=== PATIENT | female | born 1975 | race Caucasian/White ===

== ENCOUNTER → 2019-05-01 | Outpatient (CLI) | payer OTHER ==
--- NOTE | 2019-05-01 16:37 | CT ---
EXAMINATION TYPE: CT abdomen pelvis w con DATE OF EXAM: 05/01/2019 COMPARISON: CT 11/07/2013 HISTORY: Abdominal pain. CT DLP: 2349.9 mGycm Automated exposure control for dose reduction was used. TECHNIQUE: Helical acquisition of images from the lung bases through the pelvis have been completed. CONTRAST: Performed without Oral Contrast and with IV Contrast, patient injected with 100ml mL of Isovue 300. FINDINGS: Exam somewhat limited by patient body habitus. Along the anterior abdominal wall there is a midline hernia which show some fat present within it, and mouth of the hernia measures approximately 15 mm. Some associated inflammatory changes present. LUNG BASES: No significant abnormality is appreciated. AORTA: No significant abnormality is appreciated. LIVER/GB: Low dense focus again noted within the liver is stable, patient is post cholecystectomy. Th e liver is enlarged. PANCREAS: No significant abnormality is seen. SPLEEN: No significant abnormality is seen. ADRENALS: No significant abnormality is seen. KIDNEYS: No significant abnormality is seen. REPRODUCTIVE ORGANS: No significant abnormality is seen BOWEL: No significant abnormality is seen. FREE AIR: No Free Air visible. ASCITES: None visible. PELVIC ADENOPATHY: None visualized. RETROPERITONEAL ADENOPATHY: No Retroperitoneal Adenopathy visible. URINARY BLADDER: No significant abnormality is seen. OSSEOUS STRUCTURES: No significant abnormality is seen. IMPRESSION: FINDINGS COMPATIBLE WITH PATIENT'S HISTORY.
== END | disposition home or self-care (01) ==
LOC: RADCTMAIN 15:04
PROVIDERS: ATTEND Surgery
DX: K46.0 Unspecified abdominal hernia with obstruction, without gangrene (principal)
CPT/HCPCS: 74177; Q9967

== ENCOUNTER → 2019-05-18 | Outpatient (CLI) | payer OTHER ==
[2019-05-18 09:14] LABS: Basophils # (A) 0.1 k/uL (0-0.2); Basophils % (A) 1 %; Eosinophils # (A) 0.3 k/uL (0-0.7); Eosinophils % (A) 2 %; HCT 44.9 % (34.0-46.0); HGB 14.3 gm/dL (11.4-16.0); Lymphocytes # (A) 2.9 k/uL (1.0-4.8); Lymphocytes % (A) 21 %; MCHC 31.8 g/dL (31.0-37.0); MCV 94.2 fL (80.0-100.0); Mean Platelet Volume 7.6; Monocytes # (A) 0.7 k/uL (0-1.0); Monocytes % (A) 5 %; Neutrophils # (A) 9.5 k/uL (1.3-7.7); Neutrophils % (A) 70 %; Platelet Count 324 k/uL (150-450); RBC 4.77 m/uL (3.80-5.40); RDW 14.3 % (11.5-15.5); WBC 13.6 k/uL (3.8-10.6)
== END | disposition home or self-care (01) ==
LOC: LABPAT 08:17
PROVIDERS: ATTEND Surgery
DX: Z01.812 Encounter for preprocedural laboratory examination (principal); K43.6 Other and unspecified ventral hernia with obstruction, without gangrene
CPT/HCPCS: 36415; 85025

== ENCOUNTER 2019-05-22 08:01 | Observation (INO) | payer OTHER ==
[2019-05-18 13:52] VITALS: BMI 66.5
[~2019-05-22 08:01] MED LIST: CLINDAMYCIN 900 MG in DEXTROSE 5% IN WATER 50 ML IVPB ONE; DEXAMETHASONE SOD PHOSPHATE 10 MG/ML 1 ML VIAL IV ONE; HEPARIN SODIUM,PORCINE 5,000 UNIT/ML 1 ML VIAL SQ ONE; LEVOFLOXACIN 500MG-D5W PMX 500 MG in DEXTROSE/WATER 1 100ML.BAG IVPB ONE; ONDANSETRON 4 MG/2 ML VIAL IVP ONE; ONDANSETRON 4 MG/2 ML VIAL IVP PRN
--- NOTE | 2019-05-22 08:56 | P.GSHP ---
History of Present Illness H&P Date: 05/22/19 Chief Complaint: Incisional hernia 44-year-old female known to our service. Patient was seen in the office in late March. She has a history of previous umbilical hernia repair with mesh. Postoperatively after that surgery the patient had a wound infection. Her mesh was not removed. Unfortunately she has developed increased swelling at the umbilicus. She is complaining of discomfort in that area. Patient was sent for CAT scan to evaluate for recurrent hernia or seroma formation. CAT scan does reveal a midline hernia containing fat. Size of the fascial defect approximately 15 mm. Some inflammation noted. CAT scan findings were discussed with the patient and she was subsequently scheduled for surgery. Past Medical History Past Medical History: Asthma, COPD, Fibromyalgia, Osteoarthritis (OA), Seizure Disorder, Sleep Apnea/CPAP/BIPAP Additional Past Medical History / Comment(s): last seizure 2 months ago, migraines, varicose veins, no cpap used, urinary leakage/urgency History of Any Multi-Drug Resistant Organisms: MRSA Date of last positivie culture/infection: 2012 MDRO Source:: abdomin Past Surgical History: Cholecystectomy, Hernia Repair Additional Past Surgical History / Comment(s): surgery on archie little fingers to straigten them, Past Anesthesia/Blood Transfusion Reactions: Motion Sickness Smoking Status: Current every day smoker - Past Family History Daughter(s) Family Medical History: Cancer Medications and Allergies Home Medications Medication Instructions Recorded Confirmed Type Divalproex Sodium 500 mg PO BID 01/07/15 05/18/19 History Albuterol Inhaler [Ventolin Hfa 1 puff INHALATION Q4HR PRN 05/18/19 05/18/19 History Inhaler] Beclomethasone Dipropionate [Qvar 1 puff INHALATION BID 05/18/19 05/18/19 History 40 mcg Redihaler] Ergocalciferol (Vitamin D2) 50,000 unit PO MO 05/18/19 05/18/19 History [Vitamin D2] Hydrochlorothiazide [Hydrodiuril] 25 mg PO DAILY 05/18/19 05/18/19 History Montelukast Sodium [Singulair] 10 mg PO DAILY 05/18/19 05/18/19 History Oxybutynin Chloride 5 mg PO BID 05/18/19 05/18/19 History medroxyPROGESTERone [Depo-Provera] 150 mg IM DIRECTED 05/18/19 05/18/19 History oxyCODONE HCL/ACETAMINOPHEN 1 tab PO QID PRN 05/18/19 05/18/19 History [Percocet 10-325 mg] Allergies Allergy/AdvReac Type Severity Reaction Status Date / Time Penicillins Allergy Severe Dyspnea Verified 05/22/19 08:23 bee venom protein (honey bee) Allergy Dyspnea Verified 05/22/19 08:23 Iodinated Contrast- Oral and Allergy mouth numb Verified 05/22/19 08:23 IV Dye for 1 week/loss of taste Surgical - Exam Physical exam: General: Well-developed, well-nourished HEENT: Normocephalic, sclerae nonicteric Abdomen: Nontender, nondistended, incarcerated incisional hernia Extremities: No edema Neuro: Alert and oriented Assessment and Plan (1) Incisional hernia Narrative/Plan: Clinical scenario discussed in detail with the patient. We'll proceed with operative repair with mesh at this time. Risks of bleeding, infection, recurrence, bladder and bowel injury, numbness, nerve injury were discussed with the patient. The patient understands and wishes to proceed. Current Visit: Yes Status: Acute Code(s): K43.2 - INCISIONAL HERNIA WITHOUT OBSTRUCTION OR GANGRENE SNOMED Code(s): 516908590
[2019-05-22] MEDS ORDERED: LIDOCAINE 1% 20 ML VIAL (10MG/ML) FOR IV START INTRADERMA ONE (09:10)
[2019-05-22] MEDS: LACTATED RINGERS 1,000 ML IV SCH ×2 (09:10→17:18)
[2019-05-22] MEDS ORDERED: ROCURONIUM BROMIDE 10 MG/ML 10 ML VIAL IV ONE (09:41)
[2019-05-22] MEDS ORDERED: MIDAZOLAM 2 MG/2 ML VIAL ONE (09:41)
[2019-05-22] MEDS ORDERED: fentaNYL (PF) 50 MCG/ML 2 ML AMP ONE (09:41)
[2019-05-22] MEDS ORDERED: HYDROmorphone (PF) 1 MG/ML ONE (09:41)
[2019-05-22] MEDS ORDERED: NEOSTIGMINE 1 MG/ML 10 ML VIAL ONE (09:41)
[2019-05-22] MEDS ORDERED: GLYCOPYRROLATE 0.2 MG/ML 2 ML VIAL ONE (09:41)
[2019-05-22] MEDS ORDERED: ePHEDrine SULFATE/0.9% NACL/PF 50 MG/5 ML SYRINGE IV ONE (09:41)
[2019-05-22] MEDS ORDERED: PROPOFOL 10 MG/ML 20 ML VIAL IV ONE (09:41)
[2019-05-22] MEDS ORDERED: SUCCINYLCHOLINE CHLORIDE VIAL 200 MG/10 ML VIAL IV ONE (09:41)
[2019-05-22] MEDS ORDERED: LIDOCAINE 1% INJ 10MG/ML (20 ML MDV) ONE (09:41)
[2019-05-22] MEDS ORDERED: LACTATED RINGERS 1,000 ML IV ONE (10:49)
[2019-05-22] MEDS ORDERED: BUPIVACAINE (PF) 0.25% 30 ML VIAL SQ ONE (11:20)
[2019-05-22] MEDS ORDERED: ALBUTEROL NEBULIZED 2.5 MG/3 ML INHALATION ONE (11:39)
[2019-05-22] MEDS: HYDROmorphone 0.5 MG/0.5 ML SYRINGE IVP PRN ×2 (11:58→12:08)
[2019-05-22] MEDS ORDERED: NALOXONE 0.4 MG/ML 1 ML VIAL IV PRN (12:01)
--- NOTE | 2019-05-22 12:06 | P.OP ---
Date of Procedure: 05/22/19 Procedure(s) Performed: PREOPERATIVE DIAGNOSIS: Incarcerated incisional hernia POSTOPERATIVE DIAGNOSIS: Same PROCEDURE: Incarcerated incisional hernia repair with mesh SURGEON: Mc EBL: Minimal ANESTHESIA: Gen. COMPLICATIONS: None OPERATIVE PROCEDURE: Patient placed on the operating table in the supine po sition. Abdomen was prepped and draped in usual sterile fashion. And incision was made along the left side of the umbilicus. Dissection through the subcutaneous tissues took place using electrocautery. A large hernia was identified. The hernia sac was carefully dissected down to the level of the fascia where it was excised. The patient's hernia defect at the level of the fascia measured 3 cm x 4 cm. This appeared to be just at the superior aspect of her previous hernia repair site. The hernia sac contained a large amount of incarcerated omentum that had a slightly ischemic appearance. The omentum was excised with the use of the LigaSure device. The hernia sac was excised as well. The 8 cm ventral ex mesh was placed beneath the fascia. This was sutured to the fascia using interrupted transfascial 0 Ethibond sutures. The defect was then closed horizontally using a vest over pants interrupted 0 Ethibond suture technique. The folding edge was tacked down using interrupted 0 Ethibond sutures as well. The subcutaneous tissues were closed using 2-0 and 3-0 Vicryl sutures. The skin was closed using a running 4-0 Monocryl stitch. Skin glue and sterile dressings were applied. DISPOSITION: Stable to recovery room
[2019-05-22] MEDS ORDERED: ONDANSETRON 4 MG/2 ML VIAL IVP PRN (13:01)
[2019-05-22] MEDS ORDERED: ALBUTEROL NEBULIZED 2.5 MG/3 ML INHALATION PRN (13:18)
[2019-05-22] MEDS: HEPARIN SODIUM,PORCINE 5,000 UNIT/ML 1 ML VIAL SQ SCH ×2 (13:30→23:51)
[2019-05-22] MEDS: D5-0.45% NACL WITH KCL 20MEQ/L 1,000 ML IV SCH ×2 (13:30→21:19)
[2019-05-22] MEDS: HYDROcodone/APAP 5-325MG 1 EACH TAB PO PRN ×2 (15:34→20:41)
[2019-05-22] MEDS: FLUTICASONE 44 MCG INHALER INHALATION SCH (19:39)
[2019-05-22] MEDS: DIVALPROEX 500 MG TABLET.DR PO SCH (21:18)
[2019-05-22] MEDS: DOCUSATE 100 MG CAP PO SCH (21:18)
[2019-05-22] MEDS: OXYBUTYNIN CHLORIDE 5 MG TAB PO SCH (21:18)
--- NOTE | 2019-05-22 22:32 | P.CONS ---
History of Present Illness - Reason for Consult Consult date: 05/22/19 Medical management - Chief Complaint Incarcerated incisional hernia repair - History of Present Illness Patient is a 44-year-old female with a known history of asthma/COPD, or myalgia, seizure disorder, bipolar disorder was admitted to the hospital to incarcerated umbilical hernia repair. Patient does have a previous history of umbilical hernia repaired with mesh. Recently patient has developed increased swelling at the time because and causing significant discomfort area did patient had CT abdomen showed midline hernia containing fat and inflammation. Subsequently patient was scheduled for hernia repair. Patient currently denied any complaints of chest pain or shortness of breath. N o headache or dizziness. No nausea vomiting. Tolerating liquids. Postoperatively patient blood pressure in the lower side and is currently improved. Review of Systems Constitutional: Patient denies any fever or chills . No generalized weakness or weight loss. Abdomen: Patient denied nausea vomiting and diarrhea and abdominal pain. Cardiovascular: Patient denies any chest pain or short of breath no palpitations. Respiratory: patient denied any cough is from production. No shortness of breath Neurologic: Patient denied any numbness or tingling headache. Musculoskeletal: Patient denies any complaints of joint swelling or deformity. Skin: Negative Psychiatric: Negative Endocrine: No heat or cold intolerance. No recent weight gain. Genitourinary: No dysuria or hematuria. All other 14 point ROS negative except the above Past Medical History Past Medical History: Asthma, COPD, Fibromyalgia, Osteoarthritis (OA), Seizure Disorder, Sleep Apnea/CPAP/BIPAP Additional Past Medical History / Comment(s): last seizure 2 months ago, migraines, varicose veins, no cpap used, urinary leakage/urgency History of Any Multi-Drug Resistant Organisms: MRSA Year Discovered:: 2012 MDRO Source:: abdomin Past Surgical History: Cholecystectomy, Hernia Repair Additional Past Surgical History / Comment(s): surgery on archie little fingers to straigten them, Past Anesthesia/Blood Transfusion Reactions: Motion Sickness Past Psychological History: Anxiety, Bipolar, Depression, PTSD Smoking Status: Current every day smoker Past Alcohol Use History: Occasional Additional Past Alcohol Use History / Comment(s): smokes 1/2 PPD, has smoked since age 18 Past Drug Use History: Marijuana - Past Family History Daughter(s) Family Medical History: Cancer Medications and Allergies Home Medications Medication Instructions Recorded Confirmed Type Divalproex Sodium 500 mg PO BID 01/07/15 05/18/19 History Albuterol Inhaler [Ventolin Hfa 1 puff INHALATION Q4HR PRN 05/18/19 05/18/19 History Inhaler] Beclomethasone Dipropionate [Qvar 1 puff INHALATION BID 05/18/19 05/18/19 History 40 mcg Redihaler] Ergocalciferol (Vitamin D2) 50,000 unit PO MO 05/18/19 05/18/19 History [Vitamin D2] Hydrochlorothiazide [Hydrodiuril] 25 mg PO DAILY 05/18/19 05/18/19 History Montelukast Sodium [Singulair] 10 mg PO DAILY 05/18/19 05/18/19 History Oxybutynin Chloride 5 mg PO BID 05/18/19 05/18/19 History medroxyPROGESTERone [Depo-Provera] 150 mg IM DIRECTED 05/18/19 05/18/19 History oxyCODONE HCL/ACETAMINOPHEN 1 tab PO QID PRN 05/18/19 05/18/19 History [Percocet 10-325 mg] oxyCODONE HCL/ACETAMINOPHEN 1 tab PO Q4HR PRN 3 Days #18 tab 05/22/19 Rx [Percocet 10-325 mg] oxyCODONE HCL/ACETAMINOPHEN 1 tab PO Q6HR PRN 3 Days #12 tab 05/22/19 Rx [Percocet 10-325 mg] Allergies Allergy/AdvReac Type Severity Reaction Status Date / Time Penicillins Allergy Severe Dyspnea Verified 05/22/19 08:23 bee venom protein (honey bee) Allergy Dyspnea Verified 05/22/19 08:23 Iodinated Contrast- Oral and Allergy mouth numb Verified 05/22/19 08:23 IV Dye for 1 week/loss of taste Physical Exam Vitals: Vital Signs Temp Pulse Pulse Resp BP BP Pulse Ox 05/22/19 19:50 98.6 F 99 17 115/70 95 05/22/19 15:00 98.5 F 104 H 16 143/69 92 L 05/22/19 12:22 96 20 115/56 92 L 05/22/19 12:07 96 20 120/61 94 L 05/22/19 11:52 96 20 130/67 99 05/22/19 11:37 97 F L 100 28 H 141/64 93 L 05/22/19 09:10 96.5 F L 86 16 151/94 97 Intake and Output 05/22/19 05/22/19 05/22/19 06:59 14:59 22:59 Intake Total 1156 Output Total 20 Balance 1136 Intake: IV 1156 Output: Estimated Blood Loss 20 Other: # Voids 1 Weight 169.7 kg PHYSICAL EXAMINATION: Patient is lying in the bed comfortably, no acute distress, awake alert and oriented. Morbidly obese. HEENT: Normocephalic. Neck is supple. Pupils reactive. Nostrils clear. Oral cavity is moist. Ears reveal no drainage. Neck reveals no JVD, carotid bruits, or thyromegaly. CHEST EXAMINATION: Trachea is central. Symmetrical expansion. Lung fernandez clear to auscultation and percussion. CARDIAC: Normal S1, S2 with no gallops. No murmurs ABDOMEN: Soft. Surgical site is packed at this time. Bowel sounds present. No organomegaly. No abdominal bruits. Extremities: reveal no edema. No clubbing or cyanosis Neurologically awake, alert, oriented x3 with well-coordinated movements. No fo cathy deficits noted Skin: No rash or skin lesions. Psychiatric: Coperative. Nonsuicidal Musculoskeletal: No joint swelling or deformity. Normal range of motion. Results CBC & Chem 7: 05/22/19 09:09 Assessment and Plan Assessment: Status post umbilical hernia repair with mesh. POD #0 Previous history of other medical hernia repair. Asthma/COPD stable Fibromyalgia and are sure there is an extensive is a Obstructive sleep apnea. Currently not using CPAP machine Seizure disorder History of migraine headaches Currently everyday smoker Morbid obesity with BMI 68.4 DVT prophylaxis Plan: Patient will be continued on IV hydration. Started on liquid diet. Pain management, bowel regimen and DVT prophylaxis. Encourage incentive spirometry. Monitor H&H. Follow-up CBC and BMP. Further recommendations based on the clinical course. Time with Patient: Greater than 30
[2019-05-22] MEDS: HYDROmorphone 1 MG/ML 1 ML SYRINGE IVP PRN (23:51)
[2019-05-23] MEDS: HYDROcodone/APAP 5-325MG 1 EACH TAB PO PRN ×3 (04:47→21:44)
[2019-05-23] MEDS: D5-0.45% NACL WITH KCL 20MEQ/L 1,000 ML IV SCH ×2 (04:51→19:40)
[2019-05-23] MEDS: HYDROmorphone 1 MG/ML 1 ML SYRINGE IVP PRN ×3 (08:12→23:20)
[2019-05-23] MEDS: PANTOPRAZOLE 40 MG/10 ML VIAL IV SCH (08:12)
[2019-05-23] MEDS: HEPARIN SODIUM,PORCINE 5,000 UNIT/ML 1 ML VIAL SQ SCH ×3 (08:12→23:14)
[2019-05-23] MEDS: MONTELUKAST 10 MG TAB PO SCH (08:13)
[2019-05-23] MEDS: HYDROCHLOROTHIAZIDE 25 MG TAB PO SCH (08:13)
[2019-05-23] MEDS: DOCUSATE 100 MG CAP PO SCH ×2 (08:13→21:44)
[2019-05-23] MEDS: DIVALPROEX 500 MG TABLET.DR PO SCH ×2 (08:13→21:44)
[2019-05-23] MEDS: OXYBUTYNIN CHLORIDE 5 MG TAB PO SCH ×2 (08:14→21:44)
[2019-05-23 09:02] LABS: Basophils % (A) 0 %; Eosinophils # (A) 0.1 k/uL (0-0.7); Eosinophils % (A) 1 %; Lymphocytes # (A) 2.3 k/uL (1.0-4.8); Lymphocytes % (A) 15 %; MCH 31.5 pg (25.0-35.0); MCHC 34.1 g/dL (31.0-37.0); MCV 92.2 fL (80.0-100.0); Mean Platelet Volume 8.9; Monocytes # (A) 0.8 k/uL (0-1.0); Monocytes % (A) 5 %; Neutrophils # (A) 12.1 k/uL (1.3-7.7); Neutrophils % (A) 78 %; Platelet Count 289 k/uL (150-450); RBC 4.45 m/uL (3.80-5.40); RDW 14.1 % (11.5-15.5); WBC 15.4 k/uL (3.8-10.6)
[2019-05-23] MEDS: FLUTICASONE 44 MCG INHALER INHALATION SCH ×2 (09:13→20:48)
[2019-05-23 09:17] LABS: African American GFR (CKD) >90 (>60 ml/min/1.73 sqM); Anion Gap 13 mmol/L; Blood Urea Nitrogen 17 mg/dL (7-17); Calcium 9.3 mg/dL (8.4-10.2); Carbon Dioxide 21 mmol/L (22-30); Chloride 102 mmol/L (98-107); Glucose 163 mg/dL (74-99); Potassium 4.7 mmol/L (3.5-5.1); Sodium 136 mmol/L (137-145)
--- NOTE | 2019-05-23 10:46 | P.PN ---
Subjective Progress Note Date: 05/23/19 CHIEF COMPLAINT: Postoperative pain status post complicated ventral hernia repair HISTORY OF PRESENT ILLNESS: The patient is a 44-year-old female postop day 1 status post open ventral hernia repair. Patient reports difficulty in moving around including dizziness. Her WBC is elevated. Her pain is still moderate. ROS: No reports of nausea and vomiting. No bowel movements. No fevers or chills. No new chest pain. No productive sputum PHYSICAL EXAM: VITAL SIGNS: Reviewed CONSTITUTIONAL: Well developed and in no acute distress. EYES: Conjuctivae without sclera icterus. Extraocular movements grossly intact. HEAD, EARS, NOSE, THROAT: Moist buccal mucosa. Head is atraumatic, normocephalic. Hears conversational speech. No nasal drainage. NECK: Supple. No thyroidomegaly. RESPIRATORY: Non-labored respirations and equal bilateral excursions. CARDIOVASCULAR: Palpable 2+ radial pulses. Regular rate. Regular rhythm. ABDOMEN: Incisions clean dry and intact. Soft. No peritonitis. Appropriate incisional tenderness. Abdominal binder present. MUSCULOSKELETAL: No gross deformity of the lower extremities noted. No clubbing. No cyanosis. SKIN: Good skin turgor. Well perfused. NEUROLOGIC: Cranial nerves I through XII grossly intact. No focal or lateralizing signs. PSYCH: Appropriate affect. Alert and oriented to person, place and time. CLINCAL LABS: White blood cell count elevated over 15,000 ASSESSMENT: 1. Open ventral hernia repair, incarcerated 2. Chronic pain syndrome 3. Super morbid obesity, BMI 68.4 PLAN: 1. Recommend PT/OT assessment. 2. Discharge pending resolution of instablity, debility, and improvement of pain. Objective - Vital Signs Vital signs: Vital Signs Temp 97.7 F 05/23/19 07:00 Pulse 93 05/23/19 07:00 Resp 15 05/23/19 07:00 BP 155/77 05/23/19 07:00 Pulse Ox 95 05/23/19 07:00 Intake & Output 05/22/19 05/23/19 05/23/19 18:59 06:59 18:59 Intake Total 1156 1170 520 Output Total 20 Balance 1136 1170 520 Weight 169.7 kg Intake: IV 1156 Intake, IV Titration 1000 Amount D5-0.45% NaCl with KCl 1000 20Meq/l 1,000 ml @ 100 mls/hr IV .Q10H MICHA Rx#: [id number] Oral 170 520 Output: Estimated Blood Loss 20 Other: # Voids 1 1 - Labs CBC & Chem 7: 05/23/19 07:10 05/23/19 07:10 Labs: Abnormal Lab Results - Last 24 Hours (Table) 05/23/19 05/23/19 Range/Units 07:10 07:10 WBC 15.4 H (3.8-10.6) k/uL Neutrophils # 12.1 H (1.3-7.7) k/uL Sodium 136 L (137-145) mmol/L Carbon Dioxide 21 L (22-30) mmol/L Glucose 163 H (74-99) mg/dL Assessment and Plan (1) Incarcerated incisional hernia Current Visit: Yes Status: Acute Code(s): K43.0 - INCISIONAL HERNIA WITH OBSTRUCTION, WITHOUT GANGRENE SNOMED Code(s): 081539182 (2) Morbid obesity with BMI of 60.0-69.9, adult Current Visit: Yes Status: Acute Code(s): E66.01 - MORBID (SEVERE) OBESITY DUE TO EXCESS CALORIES; Z68.44 - BODY MASS INDEX (BMI) 60.0-69.9, ADULT SNOMED Code(s): 726736664 (3) Fibromyalgia Current Visit: Yes Status: Acute Code(s): M79.7 - FIBROMYALGIA SNOMED Code(s): 276992822 (4) Chronic pain Current Visit: Yes Status: Acute Code(s): G89.29 - OTHER CHRONIC PAIN SNOMED Code(s): 13979882
[2019-05-23] MEDS: LACTATED RINGERS 1,000 ML IV SCH (19:40)
--- NOTE | 2019-05-24 00:36 | P.PN ---
Subjective Progress Note Date: 05/23/19 Principal diagnosis: Umbilical hernia repair Patient is a 44-year-old female with a known history of asthma/COPD, or myalgia, seizure disorder, bipolar disorder was admitted to the hospital to incarcerated umbilical hernia repair. Patient does have a previous history of umbilical hernia repaired with mesh. Recently patient has developed increased swelling at the time because and causing significant discomfort area did patient had CT abdomen showed midline hernia containing fat and inflammation. Subsequently patient was scheduled for hernia repair. Patient currently denied any complaints of chest pain or shortness of breath. No headache or dizziness. No nausea vomiting. Tolerating liquids. Postoperatively patient blood pressure in the lower side and is currently improved. 05/23/2019 Patient is complaining of nausea and lightheadedness this morning. Currently improving. Hemoglobin is fairly stable. Sleep patient does have leukocytosis which is most likely from post surgical inflammation. Patient is tolerating oral diet. No compressive chest pain or shortness of breath. No headache or dizziness or lightheadedness. No fever no chills. Anticipate discharge in next 24 hours. All other 14 point review of systems negative except the above. Current medications reviewed. Objective - Vital Signs Vital signs: Vital Signs Temp 97.7 F 05/23/19 07:00 Pulse 95 05/23/19 08:00 Resp 15 05/23/19 07:00 BP 155/77 05/23/19 07:00 Pulse Ox 95 05/23/19 07:00 Intake & Output 05/22/19 05/23/19 05/23/19 18:59 06:59 18:59 Intake Total 1156 1170 520 Output Total 20 Balance 1136 1170 520 Weight 169.7 kg Intake: IV 1156 Intake, IV Titration 1000 Amount D5-0.45% NaCl with KCl 1000 20Meq/l 1,000 ml @ 100 mls/hr IV .Q10H MICHA Rx#: [id number] Oral 170 520 Output: Estimated Blood Loss 20 Other: # Voids 1 1 - Exam PHYSICAL EXAMINATION: Patient is lying in the bed comfortably, no acute distress, awake alert and oriented. Morbidly obese. HEENT: Normocephalic. Neck is supple. Pupils reactive. Nostrils clear. Oral cavity is moist. Ears reveal no drainage. Neck reveals no JVD, carotid bruits, or thyromegaly. CHEST EXAMINATION: Trachea is central. Symmetrical expansion. Lung fernandez clear to auscultation and percussion. CARDIAC: Normal S1, S2 with no gallops. No murmurs ABDOMEN: Soft. Surgical site is packed at this time. Bowel sounds present. No organomegaly. No abdominal bruits. Extremities: reveal no edema. No clubbing or cyanosis Neurologically awake, alert, oriented x3 with well-coordinated movements. No focal deficits noted Skin: No rash or skin lesions. Psychiatric: Coperative. Nonsuicidal Musculoskeletal: No joint swelling or deformity. Normal range of motion. - Labs CBC & Chem 7: 05/23/19 07:10 05/23/19 07:10 Labs: Abnormal Lab Results - Last 24 Hours (Table) 05/23/19 05/23/19 Range/Units 07:10 07:10 WBC 15.4 H (3.8-10.6) k/uL Neutrophils # 12.1 H (1.3-7.7) k/uL Sodium 136 L (137-145) mmol/L Carbon Dioxide 21 L (22-30) mmol/L Glucose 163 H (74-99) mg/dL Assessment and Plan Assessment: Status post umbilical hernia repair with mesh. POD #1 Leukocytosis WBC 15 likely due to postsurgical inflammatory reaction. CBC tomorrow. Previous history of other medical hernia repair. Asthma/COPD stable Fibromyalgia and are sure there is an extensive is a Obstructive sleep apnea. Currently not using CPAP machine Seizure disorder History of migraine headaches Currently everyday smoker Morbid obesity with BMI 68.4 DVT prophylaxis Plan: Patient will be continued on IV hydration. Started on liquid diet and advance as tolerated.. Pain management, bowel regimen and DVT prophylaxis. Encourage incentive spirometry. Monitor H&H. Follow-up CBC tomorrow. Further recommendations based on the clinical course. Time with Patient: Greater than 30
[2019-05-24] MEDS: D5-0.45% NACL WITH KCL 20MEQ/L 1,000 ML IV SCH (06:21)
[2019-05-24] MEDS: HYDROcodone/APAP 5-325MG 1 EACH TAB PO PRN ×2 (06:29→13:58)
[2019-05-24 07:28] LABS: Basophils # (A) 0.1 k/uL (0-0.2); Basophils % (A) 1 %; Eosinophils # (A) 0.2 k/uL (0-0.7); Eosinophils % (A) 1 %; HCT 39.9 % (34.0-46.0); HGB 13.2 gm/dL (11.4-16.0); Lymphocytes % (A) 30 %; MCHC 33.1 g/dL (31.0-37.0); MCV 93.5 fL (80.0-100.0); Mean Platelet Volume 7.3; Monocytes # (A) 0.7 k/uL (0-1.0); Monocytes % (A) 5 %; Neutrophils # (A) 8.1 k/uL (1.3-7.7); Neutrophils % (A) 61 %; Platelet Count 286 k/uL (150-450); RBC 4.27 m/uL (3.80-5.40); RDW 13.3 % (11.5-15.5); WBC 13.2 k/uL (3.8-10.6)
[2019-05-24] MEDS: FLUTICASONE 44 MCG INHALER INHALATION SCH (08:28)
[2019-05-24] MEDS: HYDROmorphone 1 MG/ML 1 ML SYRINGE IVP PRN (08:45)
[2019-05-24] MEDS: PANTOPRAZOLE 40 MG/10 ML VIAL IV SCH (08:45)
[2019-05-24] MEDS: OXYBUTYNIN CHLORIDE 5 MG TAB PO SCH (08:46)
[2019-05-24] MEDS: HEPARIN SODIUM,PORCINE 5,000 UNIT/ML 1 ML VIAL SQ SCH (08:46)
[2019-05-24] MEDS: DIVALPROEX 500 MG TABLET.DR PO SCH (08:46)
[2019-05-24] MEDS: HYDROCHLOROTHIAZIDE 25 MG TAB PO SCH (08:46)
[2019-05-24] MEDS: MONTELUKAST 10 MG TAB PO SCH (08:46)
[2019-05-24] MEDS: DOCUSATE 100 MG CAP PO SCH (08:46)
[2019-05-24 09:49] VITALS: BP 126/68; PULSE 90; RESP 18; TEMP 97.9
--- NOTE | 2019-05-24 11:09 | P.PN ---
Subjective Progress Note Date: 05/24/19 CHIEF COMPLAINT: Postoperative pain status post complicated ventral hernia repair HISTORY OF PRESENT ILLNESS: The patient is a 44-year-old female postop day 2 status post open ventral hernia repair. Pain is controlled. No further dizziness. 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 ROS: No reports of nausea and vomiting. No fevers or chills. No new chest pain. No productive sputum PHYSICAL EXAM: VITAL SIGNS: Reviewed CONSTITUTIONAL: Well developed and in no acute distress. EYES: Conjuctivae without sclera icterus. Extraocular movements grossly intact. HEAD, EARS, NOSE, THROAT: Moist buccal mucosa. Head is atraumatic, normocephalic . Hears conversational speech. No nasal drainage. NECK: Supple. No thyroidomegaly. RESPIRATORY: Non-labored respirations and equal bilateral excursions. CARDIOVASCULAR: Palpable 2+ radial pulses. Regular rate. Regular rhythm. ABDOMEN: Incisions clean dry and intact. Soft. No peritonitis. Abdominal binder present. MUSCULOSKELETAL: No gross deformity of the lower extremities noted. No clu bbing. No cyanosis. SKIN: Good skin turgor. Well perfused. NEUROLOGIC: Cranial nerves I through XII grossly intact. No focal or lateralizing signs. PSYCH: Appropriate affect. Alert and oriented to person, place and time. CLINCAL LABS: White blood cell count elevated over 13,000 ASSESSMENT: 1. Open ventral hernia repair, incarcerated 2. Chronic pain syndrome 3. Super morbid obesity, BMI 68.4 PLAN: 1. Discharge orders including follow up reviewed. Objective - Vital Signs Vital signs: Vital Signs Temp 97.9 F 05/24/19 08:43 Pulse 90 05/24/19 08:43 Resp 18 05/24/19 08:43 BP 126/68 05/24/19 08:43 Pulse Ox 96 05/24/19 08:43 Intake & Output 05/23/19 05/24/19 05/24/19 18:59 06:59 18:59 Intake Total 1020 250 296 Balance 1020 250 296 Intake: Oral 1020 250 296 Other: # Voids 2 1 - Labs CBC & Chem 7: 05/24/19 06:34 05/23/19 07:10 Labs: Abnormal Lab Results - Last 24 Hours (Table) 05/24/19 Range/Units 06:34 WBC 13.2 H (3.8-10.6) k/uL Neutrophils # 8.1 H (1.3-7.7) k/uL Assessment and Plan (1) Incarcerated incisional hernia Current Visit: Yes Status: Acute Code(s): K43.0 - INCISIONAL HERNIA WITH OBSTRUCTION, WITHOUT GANGRENE SNOMED Code(s): 434253375 (2) Morbid obesity with BMI of 60.0-69.9, adult Current Visit: Yes Status: Acute Code(s): E66.01 - MORBID (SEVERE) OBESITY DUE TO EXCESS CALORIES; Z68.44 - BODY MASS INDEX (BMI) 60.0-69.9, ADULT SNOMED Code(s): 833321910 (3) Fibromyalgia Current Visit: Yes Status: Acute Code(s): M79.7 - FIBROMYALGIA SNOMED Code(s): 678730475 (4) Chronic pain Current Visit: Yes Status: Acute Code(s): G89.29 - OTHER CHRONIC PAIN S NOMED Code(s): 54660469
--- NOTE | 2019-05-24 13:44 | P.DS ---
Providers Date of admission: 05/24/19 06:03 Expected date of discharge: 05/24/19 Attending physician: Aristeo Bentley Consults: 05/22/19 13:01 Consult Physician Routine Consulting Provider: Adan Power Consult Reason/Comments: Medical management Do you want consulting provider notified?: Yes Primary care physician: Srinivas Wu - Discharge Diagnosis(es) (1) Incarcerated incisional hernia Current Visit: Yes Status: Acute (2) Morbid obesity with BMI of 60.0-69.9, adult Current Visit: Yes Status: Acute (3) Fibromyalgia Current Visit: Yes Status: Acute (4) Chronic pain Current Visit: Yes Status: Acute Hospital Course: CHIEF COMPLAINT: Postoperative pain status post complicated ventral hernia repair HISTORY OF PRESENT ILLNESS: The patient is a 44-year-old female postop day 2 status post open ventral hernia repair. Pain is controlled. No further dizziness. I personally had her check with her pharmacy hours for availability to pecan picker her prescriptions. ROS: No reports of nausea and vomiting. No fevers or chills. No new chest pain. No productive sputum PHYSICAL EXAM: VITAL SIGNS: Reviewed CONSTITUTIONAL: Well developed and in no acute distress. EYES: Conjuctivae without sclera icterus. Extraocular movements grossly intact. HEAD, EARS, NOSE, THROAT: Moist buccal mucosa. Head is atraumatic, normocephalic. Hears conversational speech. No nasal drainage. NECK: Supple. No thyroidomegaly. RESPIRATORY: Non-labored respirations and equal bilateral excursions. CARDIOVASCULAR: Palpable 2+ radial pulses. Regular rate. Regular rhythm. ABDOMEN: Incisions clean dry and intact. Soft. No peritonitis. Abdominal binder present. MUSCULOSKELETAL: No gross deformity of the lower extremities noted. No clubbing. No cyanosis. SKIN: Good skin turgor. Well perfused. NEUROLOGIC: Cranial nerves I through XII grossly intact. No focal or lateralizing signs. PSYCH: Appropriate affect. Alert and oriented to person, place and time. CLINCAL LABS: White blood cell count elevated over 13,000 ASSESSMENT: 1. Open ventral hernia repair, incarcerated 2. Chronic pain syndrome 3. Super morbid obesity, BMI 68.4 PLAN: 1. Discharge orders including follow up reviewed. Procedures: Open incisional hernia repair Patient Condition at Discharge: Stable Plan - Discharge Summary Discharge Rx Participant: Yes New Discharge Prescriptions: New oxyCODONE HCL/ACETAMINOPHEN [Percocet 10-325 mg] 1 tab PO Q6HR PRN 3 Days #12 tab PRN Reason: Pain oxyCODONE HCL/ACETAMINOPHEN [Percocet 10-325 mg] 1 tab PO Q4HR PRN 3 Days #18 tab PRN Reason: pain Continue Divalproex Sodium 500 mg PO BID Oxybutynin Chloride 5 mg PO BID Beclomethasone Dipropionate [Qvar 40 mcg Redihaler] 1 puff INHALATION RT-BID Albuterol Inhaler [Ventolin Hfa Inhaler] 1 puff INHALATION RT-Q4H PRN PRN Reason: Shortness Of Breath Montelukast Sodium [Singulair] 10 mg PO DAILY Hydrochlorothiazide [Hydrodiuril] 25 mg PO DAILY Ergocalciferol (Vitamin D2) [Vitamin D2] 50,000 unit PO MO medroxyPROGESTERone [Depo-Provera] 150 mg IM Q84D Discontinued oxyCODONE HCL/ACETAMINOPHEN [Percocet 10-325 mg] 1 tab PO QID PRN PRN Reason: Pain Discharge Medication List Divalproex Sodium 500 mg PO BID 01/07/15 [History] Albuterol Inhaler [Ventolin Hfa Inhaler] 1 puff INHALATION RT-Q4H PRN 05/18/19 [History] Beclomethasone Dipropionate [Qvar 40 mcg Redihaler] 1 puff INHALATION RT-BID 05/18/19 [History] Ergocalciferol (Vitamin D2) [Vitamin D2] 50,000 unit PO MO 05/18/19 [History] Hydrochlorothiazide [Hydrodiuril] 25 mg PO DAILY 05/18/19 [History] Montelukast Sodium [Singulair] 10 mg PO DAILY 05/18/19 [History] Oxybutynin Chloride 5 mg PO BID 05/18/19 [History] medroxyPROGESTERone [Depo-Provera] 150 mg IM Q84D 05/18/19 [History] oxyCODONE HCL/ACETAMINOPHEN [Percocet 10-325 mg] 1 tab PO Q4HR PRN 3 Days #18 tab 05/22/19 [Rx] oxyCODONE HCL/ACETAMINOPHEN [Percocet 10-325 mg] 1 tab PO Q6HR PRN 3 Days #12 tab 05/22/19 [Rx] Follow up Appointment(s)/Referral(s): Aristeo Bentley MD [Medical Doctor] - 05/27/19 2:40 pm Patient Instructions/Handouts: *Surgery [facility] - (Anesthesia) Discharge Instructions Outpatient Surgery, Open Herniorrhaphy (DC)
--- NOTE | 2019-06-01 23:25 | P.PN ---
Subjective Progress Note Date: 05/24/19 Principal diagnosis: Umbilical hernia repair Patient is a 44-year-old female with a known history of asthma/COPD, or myalgia, seizure disorder, bipolar disorder was admitted to the hospital to incarcerated umbilical hernia repair. Patient does have a previous history of umbilical hernia repaired with mesh. Recently patient has developed increased swelling at the time because and causing significant discomfort area did patient had CT abdomen showed midline hernia containing fat and inflammation. Subsequently patient was scheduled for hernia repair. Patient currently denied any complaints of chest pain or shortness of breath. No headache or dizziness. No nausea vomiting. Tolerating liquids. Postoperatively patient blood pressure in the lower side and is currently improved. 05/23/2019 Patient is complaining of nausea and lightheadedness this morning. Currently improving. Hemoglobin is fairly stable. Sleep patient does have leukocytosis which is most likely from post surgical inflammation. Patient is tolerating oral diet. No compressive chest pain or shortness of breath. No headache or dizziness or lightheadedness. No fever no chills. Anticipate discharge in next 24 hours. All other 14 point review of systems negative except the above. 05/24/2019 Patient is able to tolerating liquids and is being advanced to bariatric diet. Hemoglobin is fairly stable. No complaints of chest pain or shortness breath. Abdominal soreness is much improved. No other acute overnight issues. Patient is being discharged home today. Discharge medication reconciliation was done. Current medications reviewed. Objective - Vital Signs Vital signs: Vital Signs Temp 97.9 F 05/24/19 08:43 Pulse 90 05/24/19 08:43 Resp 18 05/24/19 08:43 BP 126/68 05/24/19 08:43 Pulse Ox 96 05/24/19 08:43 Intake & Output 05/23/19 05/24/19 05/24/19 18:59 06:59 18:59 Intake Total 1020 250 296 Balance 1020 250 296 Intake: Oral 1020 250 296 Other: Voiding Method Toilet # Voids 2 1 - Exam PHYSICAL EXAMINATION: Patient is lying in the bed comfortably, no acute distress, awake alert and oriented. Morbidly obese. HEENT: Normocephalic. Neck is supple. Pupils reactive. Nostrils clear. Oral cavity is moist. Ears reveal no drainage. Neck reveals no JVD, carotid bruits, or thyromegaly. CHEST EXAMINATION: Trachea is central. Symmetrical expansion. Lung fernandez clear to auscultation and percussion. CARDIAC: Normal S1, S2 with no gallops. No murmurs ABDOMEN: Soft. Surgical site is packed at this time. Bowel sounds present. No organomegaly. No abdominal bruits. Extremities: reveal no edema. No clubbing or cyanosis Neurologically awake, alert, oriented x3 with well-coordinated movements. No focal deficits noted Skin: No rash or skin lesions. Psychiatric: Coperative. Nonsuicidal Musculoskeletal: No joint swelling or deformity. Normal range of motion. - Labs CBC & Chem 7: 05/24/19 06:34 05/23/19 07:10 Labs: Abnormal Lab Results - Last 24 Hours (Table) 05/24/19 Range/Units 06:34 WBC 13.2 H (3.8-10.6) k/uL Neutrophils # 8.1 H (1.3-7.7) k/uL Assessment and Plan Assessment: Status post umbilical hernia repair with mesh. POD #2 Leukocytosis WBC 15 likely due to postsurgical inflammatory reaction. CBC tomorrow. Previous history of other medical hernia repair. Asthma/COPD stable Fibromyalgia and are sure there is an extensive is a Obstructive sleep apnea. Currently not using CPAP machine Seizure disorder History of migraine headaches Currently everyday smoker Morbid obesity with BMI 68.4 DVT prophylaxis Plan: Patient will be continued on IV hydration. Started on liquid diet and advance as tolerated.. Pain management, bowel regimen and DVT prophylaxis. Encourage incentive spirometry. Monitor H&H. Continue the current management. Further recommendations based on the clinical course. Time with Patient: Greater than 30
== END 2019-05-24 14:13 | disposition home or self-care (01) ==
LOC: OR 08:01 → 4SSUR 11:37 → OR 05-24 05:55 → 4SSUR 05-24 06:03
PROVIDERS: ADMIT Surgery; ATTEND Surgery
DX: K43.0 Incisional hernia with obstruction, without gangrene (principal); J44.9 Chronic obstructive pulmonary disease, unspecified; G47.33 Obstructive sleep apnea (adult) (pediatric); F17.210 Nicotine dependence, cigarettes, uncomplicated; M79.7 Fibromyalgia; G89.4 Chronic pain syndrome; F43.10 Post-traumatic stress disorder, unspecified; G40.909 Epilepsy, unspecified, not intractable, without status epilepticus; F41.9 Anxiety disorder, unspecified; F31.9 Bipolar disorder, unspecified; G43.909 Migraine, unspecified, not intractable, without status migrainosus; E66.01 Morbid (severe) obesity due to excess calories; Z68.44 Body mass index [BMI] 60.0-69.9, adult; Z88.0 Allergy status to penicillin; Z90.49 Acquired absence of other specified parts of digestive tract; Z86.14 Personal history of Methicillin resistant Staphylococcus aureus infection; Z91.030 Bee allergy status; Z91.041 Radiographic dye allergy status; Z79.3 Long term (current) use of hormonal contraceptives; Z79.891 Long term (current) use of opiate analgesic; Z79.51 Long term (current) use of inhaled steroids; Z79.899 Other long term (current) drug therapy; Z80.9 Family history of malignant neoplasm, unspecified
CPT/HCPCS: 49507; 96372 ×3; 94640 ×4; 97161; 81025; 86900; 86901; 80048; 84132; 85025 ×2; 86850; 88302; G0378; C1781; J2250; J0330; J1644 ×3; J1100; J2710; J2405; J1956; J2001; J3010; J1170 ×4; J2704; C9113 ×2

== ENCOUNTER 2019-11-04 18:13 | Inpatient (IN) | payer OTHER ==
[2019-11-04] MEDS ORDERED: SODIUM CHLORIDE 0.9% 1,000 ML IV ONE (18:42)
[2019-11-04] MEDS ORDERED: MORPHINE SULFATE 4 MG/ML SYRINGE IVP STA (18:42)
[2019-11-04] MEDS ORDERED: ONDANSETRON 4 MG/2 ML VIAL IVP STA (18:42)
--- NOTE | 2019-11-04 18:50 | ED ---
General Adult HPI - General Source: patient Mode of arrival: ambulatory Limitations: no limitations <Alina Rjoo - Last Filed: 11/04/19 22:07> <Hong Gandara - Last Filed: 11/04/19 22:18> - General Chief complaint: Recheck/Abnormal Lab/Rx Stated complaint: fluid draining from surgery site Time Seen by Provider: 11/04/19 18:28 - History of Present Illness Initial comments: 44 year-old female patient presents to the emergency department today for evaluation of abdominal pain and drainage from an old periumbilical incision. Patient states that she had a umbilical hernia repair with Dr. Bentley 4-5 months ago. States that a few days ago she was reaching up to get into bed and pulled her abdomen. States that the incision opened and started draining purulent odorous drainage. She states that it has been draining for the last 2-3 days. She states she is having pain to the area and is rating it at a 7/10 on the pain scale. States leading up to this she did feel a burning, pressure type pain to the area but thought it was related to other problems. States that she has had intermittent fevers over the last couple of days. Denies any nausea or vomiting. She denies diarrhea, hematochezia, or melena. States when she has a bowel movement there seems to be more drainage to her abdomen. Patient denies any recent rash, shortness breath, chest pain, back pain, numbness, tingling, dizziness, weakness, hematuria, dysuria, urinary urgency, urinary frequency, headache, visual changes, or any other complaints. (Alina Rojo) - Related Data Home Medications Medication Instructions Recorded Confirmed Divalproex Sodium 500 mg PO BID 01/07/15 05/24/19 Albuterol Inhaler [Ventolin Hfa 1 puff INHALATION RT-Q4H PRN 05/18/19 05/24/19 Inhaler] Beclomethasone Dipropionate [Qvar 1 puff INHALATION RT-BID 05/18/19 05/24/19 40 mcg Redihaler] Ergocalciferol (Vitamin D2) 50,000 unit PO MO 05/18/19 05/24/19 [Vitamin D2] Hydrochlorothiazide [Hydrodiuril] 25 mg PO DAILY 05/18/19 05/24/19 Montelukast Sodium [Singulair] 10 mg PO DAILY 05/18/19 05/24/19 Oxybutynin Chloride 5 mg PO BID 05/18/19 05/24/19 medroxyPROGESTERone [Depo-Provera] 150 mg IM Q84D 05/18/19 05/24/19 Previous Rx's Medication Instructions Recorded oxyCODONE HCL/ACETAMINOPHEN 1 tab PO Q4HR PRN 3 Days #18 tab 05/22/19 [Percocet 10-325 mg] oxyCODONE HCL/ACETAMINOPHEN 1 tab PO Q6HR PRN 3 Days #12 tab 05/22/19 [Percocet 10-325 mg] Allergies Allergy/AdvReac Type Severity Reaction Status Date / Time Penicillins Allergy Severe Dyspnea Verified 11/04/19 18:23 bee venom protein (honey bee) Allergy Dyspnea Verified 11/04/19 18:23 Iodinated Contrast Media Allergy mouth numb Verified 11/04/19 18:23 [Iodinated Contrast- Oral for 1 and IV Dye] week/loss of taste Review of Systems ROS Other: All systems not noted in ROS Statement are negative. <Alina Rojo - Last Filed: 11/04/19 22:07> ROS Other: All systems not noted in ROS Statement are negative. <Hong Gandara - Last Filed: 11/04/19 22:18> ROS Statement: Those systems with pertinent positive or pertinent negative responses have been documented in the HPI. Past Medical History Past Medical History: Asthma, COPD, Fibromyalgia, Osteoarthritis (OA), Seizure Disorder, Sleep Apnea/CPAP/BIPAP Additional Past Medical History / Comment(s): last seizure 2 months ago, migraines, varicose veins, no cpap used, urinary leakage/urgency History of Any Multi-Drug Resistant Organisms: MRSA Date of last positivie culture/infection: 2012 MDRO Source:: abdomin Past Surgical History: Cholecystectomy, Hernia Repair Additional Past Surgical History / Comment(s): surgery on archie little fingers to straigten them, Past Anesthesia/Blood Transfusion Reactions: Motion Sickness Past Psychological History: Anxiety, Bipolar, Depression, PTSD Smoking Status: Current every day smoker Past Alcohol Use History: Occasional Past Drug Use History: Marijuana - Past Family History Daughter(s) Family Medical History: Cancer <Alina Rojo - Last Filed: 11/04/19 22:07> General Exam Limitations: no limitations General appearance: alert, in no apparent distress, other (This is a well- developed, well-nourished adult female patient in no acute distress. Vital signs upon presentation are temperature 98.2F, pulse 99, respirations 18, blood pressure 140/97, pulse ox 95% on room air.) Eye exam: Present: normal appearance, PERRL, EOMI. Absent: scleral icterus, conjunctival injection, periorbital swelling ENT exam: Present: normal exam, normal oropharynx, mucous membranes moist Respiratory exam: Present: normal lung sounds bilaterally. Absent: respiratory distress, wheezes, rales, rhonchi, stridor Cardiovascular Exam: Present: regular rate, normal rhythm, normal heart sounds. Absent: systolic murmur, diastolic murmur, rubs, gallop, clicks GI/Abdominal exam: Present: soft, tenderness (Periumbilical), normal bowel sounds, other (There is incision to the inferior aspect of the umbilicus, there is a small opening which is draining purulent fluid. There is no surrounding erythema.). Absent: distended, guarding, rebound, rigid Neurological exam: Present: alert, oriented X3, CN II-XII intact Psychiatric exam: Present: normal affect, normal mood Skin exam: Present: warm, dry, intact, normal color. 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 Patient has fever chills at home she does demonstrate purulent drainage as well as elevated white blood cell count. Patient's had some evidence of cellulitis. I did review the imaging. I did discuss the case with Dr. Sandoval who is covering Dr. Bentley. Patient will be admitted with IV antibiotics. (Hong Gandara) Medical Decision Making - Lab Data Result diagrams: 11/04/19 19:00 11/04/19 19:00 <Cesar Rojoportia Maravilla - Last Filed: 11/04/19 22:07> - Lab Data Result diagrams: 11/04/19 19:00 11/04/19 19:00 <Hong Gandara - Last Filed: 11/04/19 22:18> - Lab Data Lab Results 11/04/19 11/04/19 11/04/19 Range/Units 19:00 19:00 19:00 WBC 12.0 H (3.8-10.6) k/uL RBC 4.70 (3.80-5.40) m/uL Hgb 14.1 (11.4-16.0) gm/dL Hct 42.1 (34.0-46.0) % MCV 89.6 (80.0-100.0) fL MCH 30.0 (25.0-35.0) pg MCHC 33.4 (31.0-37.0) g/dL RDW 13.9 (11.5-15.5) % Plt Count 312 (150-450) k/uL Neutrophils % 65 % Lymphocytes % 25 % Monocytes % 4 % Eosinophils % 4 % Basophils % 0 % Neutrophils # 7.8 H (1.3-7.7) k/uL Lymphocytes # 3.0 (1.0-4.8) k/uL Monocytes # 0.5 (0-1.0) k/uL Eosinophils # 0.4 (0-0.7) k/uL Basophils # 0.1 (0-0.2) k/uL Sodium 137 (137-145) mmol/L Potassium 4.7 (3.5-5.1) mmol/L Chloride 103 (98-107) mmol/L Carbon Dioxide 25 (22-30) mmol/L Anion Gap 9 mmol/L BUN 15 (7-17) mg/dL Creatinine 0.67 (0.52-1.04) mg/dL Est GFR (CKD-EPI)AfAm >90 (>60 ml/min/1.73 sqM) Est GFR (CKD-EPI)NonAf >90 (>60 ml/min/1.73 sqM) Glucose 140 H (74-99) mg/dL Plasma Lactic Acid Leon 2.6 H* (0.7-2.0) mmol/L Calcium 9.7 (8.4-10.2) mg/dL Total Bilirubin 0.4 (0.2-1.3) mg/dL AST 16 (14-36) U/L ALT 12 (9-52) U/L Alkaline Phosphatase 63 (38-126) U/L Total Protein 7.3 (6.3-8.2) g/dL Albumin 3.9 (3.5-5.0) g/dL Urine Color Urine Appearance (Clear) Urine pH (5.0-8.0) Ur Specific [place] (1.001-1.035) Urine Protein (Negative) Urine Glucose (UA) (Negative) Urine Ketones (Negative) Urine Blood (Negative) Urine Nitrite (Negative) Urine Bilirubin (Negative) Urine Urobilinogen (<2.0) mg/dL Ur Leukocyte Esterase (Negative) Urine HCG, Qual (Not Detectd) 11/04/19 11/04/19 Range/Units Unknown Unknown WBC (3.8-10.6) k/uL RBC (3.80-5.40) m/uL Hgb (11.4-16.0) gm/dL Hct (34.0-46.0) % MCV (80.0-100.0) fL MCH (25.0-35.0) pg MCHC (31.0-37.0) g/dL RDW (11.5-15.5) % Plt Count (150-450) k/uL Neutrophils % % Lymphocytes % % Monocytes % % Eosinophils % % Basophils % % Neutrophils # (1.3-7.7) k/uL Lymphocytes # (1.0-4.8) k/uL Monocytes # (0-1.0) k/uL Eosinophils # (0-0.7) k/uL Basophils # (0-0.2) k/uL Sodium (137-145) mmol/L Potassium (3.5-5.1) mmol/L Chloride (98-107) mmol/L Carbon Dioxide (22-30) mmol/L Anion Gap mmol/L BUN (7-17) mg/dL Creatinine (0.52-1.04) mg/dL Est GFR (CKD-EPI)AfAm (>60 ml/min/1.73 sqM) Est GFR (CKD-EPI)NonAf (>60 ml/min/1.73 sqM) Glucose (74-99) mg/dL Plasma Lactic Acid Leon (0.7-2.0) mmol/L Calcium (8.4-10.2) mg/dL Total Bilirubin (0.2-1.3) mg/dL AST (14-36) U/L ALT (9-52) U/L Alkaline Phosphatase (38-126) U/L Total Protein (6.3-8.2) g/dL Albumin (3.5-5.0) g/dL Urine Color Yellow Urine Appearance Clear (Clear) Urine pH 6.5 (5.0-8.0) Ur Specific [place] 1.021 (1.001-1.035) Urine Protein Trace H (Negative) Urine Glucose (UA) Negative (Negative) Urine Ketones 1+ H (Negative) Urine Blood Negative (Negative) Urine Nitrite Negative (Negative) Urine Bilirubin Negative (Negative) Urine Urobilinogen <2.0 (<2.0) mg/dL Ur Leukocyte Esterase Negative (Negative) Urine HCG, Qual Not Detected (Not Detectd) Disposition Decision to Admit Reason: Admit from EC Decision Date: 11/04/19 Decision Time: 22:08 <Alina Rojo - Last Filed: 11/04/19 22:07> <Hong Gandara - Last Filed: 11/04/19 22:18> Clinical Impression: External incisional dehiscence, Cellulitis of periumbilical region Disposition: ADMITTED IP TO THIS [facility] Condition: Serious Referrals: Nonstaff,Physician [REFERRING] - 1-2 days
[2019-11-04] MEDS ORDERED: FAMOTIDINE 20 MG/2 ML VIAL IV STA (19:06)
[2019-11-04] MEDS ORDERED: diphenhydrAMINE 50 MG/ML 1 ML VIAL IVP STA (19:06)
[2019-11-04] MEDS ORDERED: methylPREDNISolone SOD SUCCI 125 MG/2 ML VIAL IV STA (19:06)
[2019-11-04 19:18] LABS: Basophils # (A) 0.1 k/uL (0-0.2); Basophils % (A) 0 %; Eosinophils # (A) 0.4 k/uL (0-0.7); Eosinophils % (A) 4 %; HCT 42.1 % (34.0-46.0); HGB 14.1 gm/dL (11.4-16.0); Lymphocytes % (A) 25 %; MCHC 33.4 g/dL (31.0-37.0); MCV 89.6 fL (80.0-100.0); Mean Platelet Volume 7.6; Monocytes # (A) 0.5 k/uL (0-1.0); Monocytes % (A) 4 %; Neutrophils # (A) 7.8 k/uL (1.3-7.7); Neutrophils % (A) 65 %; Platelet Count 312 k/uL (150-450); RDW 13.9 % (11.5-15.5)
[2019-11-04 19:27] LABS: ALT 12 U/L (9-52); AST 16 U/L (14-36); African American GFR (CKD) >90 (>60 ml/min/1.73 sqM); Albumin 3.9 g/dL (3.5-5.0); Alkaline Phosphatase 63 U/L (38-126); Anion Gap 9 mmol/L; Blood Urea Nitrogen 15 mg/dL (7-17); Calcium 9.7 mg/dL (8.4-10.2); Carbon Dioxide 25 mmol/L (22-30); Chloride 103 mmol/L (98-107); Glucose 140 mg/dL (74-99); Non-African American GFR(CKD) >90 (>60 ml/min/1.73 sqM); Potassium 4.7 mmol/L (3.5-5.1); Sodium 137 mmol/L (137-145); Total Bilirubin 0.4 mg/dL (0.2-1.3); Total Protein 7.3 g/dL (6.3-8.2)
--- NOTE | 2019-11-04 20:16 | CT ---
EXAMINATION TYPE: CT abdomen pelvis w con DATE OF EXAM: 11/04/2019 COMPARISON: 05/01/2019 HISTORY: Hernia repair 3 months ago. Leaking from that site. CT DLP: [id number] mGycm Automated exposure control for dose reduction was used. CONTRAST: CT scan of the abdomen pelvis is performed with IV Contrast, patient injected with 100 mL of Isovue 3 00. FINDINGS- LUNG BASES- No significant abnormality is appreciated. LIVER/GB-stable subcentimeter left hepatic density to small to characterize. Postcholecystectomy sawant ges are noted. Liver appears to be enlarged measuring 25 cm correlate for hepatocellular disease.. PANCREAS- No gross abnormality is seen. SPLEEN- No gross abnormality is seen. ADRENALS- No gross abnormality is seen. KIDNEYS/BLADDER- no hydronephrosis nephrolithiasis or renal mass. BOWEL-bowel gas pattern nonspecific and markedly limited due to the lack of contrast. LYMPH NODES- No greater than 1cm abdominal or pelvic lymph nodes areappreciated. OSSEOUS STRUCTURES- No significant abnormality is seen. OTHER- there is diffuse soft tissue edema anteriorly with soft tissue irregularity involving the epi dermis correlate for an open wound or wound dehiscence with possible hyperdensity representing hemorr damien and cellulitis. No definable abscess cavity seen. Lobulation of the uterus could be associated with uterine fibroids correlate clinically. Calcificatio n posterior to the right lobe of the liver measuring 1 cm. Retroaortic left renal vein noted. Metalli c density adjacent to the right lobe of the liver. IMPRESSION- 1. Diffuse soft tissue edema with skin thickening and irregularity along the epidermis suggestive of an open wound correlate for diffuse cellulitis. Area of hyperdensity could represent packing material or foreign body versus small hemorrhagic component correlate clinically. No definable abscess.
[2019-11-04 20:19] LABS: Appearance,Urine Clear (Clear); Bilirubin,Urine Negative (Negative); Blood,Urine Negative (Negative); Color,Urine Yellow; Glucose,Urine (UA) Negative (Negative); Ketones,Urine 1+ (Negative); Leukocyte Esterase,Urine Negative (Negative); Nitrite,Urine Negative (Negative); PH, Urine 6.5 (5.0-8.0); Protein,Urine Trace (Negative); Specific Gravity,Urine 1.021 (1.001-1.035); Urobilinogen,Urine <2.0 mg/dL (<2.0)
[2019-11-04] MEDS ORDERED: PIPERACILLIN-TAZOBACTAM 3.375 GM in SODIUM CHLORIDE 0.9% 100 ML IVPB STA (21:49)
[2019-11-04] MEDS ORDERED: NALOXONE 0.4 MG/ML 1 ML VIAL IV PRN (22:05)
[2019-11-04] MEDS ORDERED: ONDANSETRON 4 MG/2 ML VIAL IVP PRN (22:05)
[2019-11-04] MEDS ORDERED: SODIUM CHLORIDE 0.9% 1,000 ML IV SCH (22:15)
[2019-11-05] MEDS: MORPHINE SULFATE 4 MG/ML SYRINGE IV PRN ×2 (00:33→08:29)
[2019-11-05] MEDS: OXYBUTYNIN CHLORIDE 5 MG TAB PO SCH ×3 (00:34→21:48)
[2019-11-05] MEDS: DIVALPROEX ER 500 MG TAB.ER.24H PO SCH ×3 (00:34→21:48)
[2019-11-05 03:39] LABS: Basophils % (A) 0 %; Eosinophils # (A) 0.1 k/uL (0-0.7); Eosinophils % (A) 0 %; HCT 43.6 % (34.0-46.0); HGB 14.1 gm/dL (11.4-16.0); Lymphocytes # (A) 1.1 k/uL (1.0-4.8); Lymphocytes % (A) 8 %; MCH 29.7 pg (25.0-35.0); MCHC 32.3 g/dL (31.0-37.0); MCV 91.7 fL (80.0-100.0); Mean Platelet Volume 7.9; Monocytes # (A) 0.1 k/uL (0-1.0); Monocytes % (A) 1 %; Neutrophils # (A) 12.5 k/uL (1.3-7.7); Neutrophils % (A) 91 %; Platelet Count 281 k/uL (150-450); RBC 4.76 m/uL (3.80-5.40); RDW 14.1 % (11.5-15.5); WBC 13.8 k/uL (3.8-10.6)
[2019-11-05] MEDS: PIPERACILLIN-TAZOBACTAM 3.375 GM in SODIUM CHLORIDE 0.9% 100 ML IVPB SCH ×3 (06:04→22:44)
[2019-11-05] MEDS ORDERED: SODIUM CHLORIDE 0.9% 1,000 ML IV ONE (06:22)
[2019-11-05] MEDS ORDERED: ALBUTEROL NEBULIZED 2.5 MG/3 ML INHALATION SCH (08:00)
[2019-11-05] MEDS: HYDROCHLOROTHIAZIDE 25 MG TAB PO SCH (08:28)
[2019-11-05] MEDS: VENLAFAXINE HCL ER 150 MG CAP PO SCH (08:28)
[2019-11-05] MEDS: ACETAMINOPHEN TAB 325 MG TAB PO PRN (08:28)
[2019-11-05] MEDS: NICOTINE 21MG/24HR PATCH TRANSDERM SCH (08:29)
[2019-11-05] MEDS: ALBUTEROL NEBULIZED 2.5 MG/3 ML INHALATION SCH ×2 (08:46→20:11)
[2019-11-05] MEDS: FLUTICASONE 44 MCG INHALER INHALATION SCH (08:46)
[2019-11-05] MEDS: SODIUM CHLORIDE 0.9% 1,000 ML IV SCH ×2 (09:45→16:40)
[2019-11-05 10:16] LABS: African American GFR (CKD) >90 (>60 ml/min/1.73 sqM); Anion Gap 13 mmol/L; Blood Urea Nitrogen 16 mg/dL (7-17); Calcium 9.1 mg/dL (8.4-10.2); Carbon Dioxide 19 mmol/L (22-30); Chloride 103 mmol/L (98-107); Glucose 205 mg/dL (74-99); Non-African American GFR(CKD) >90 (>60 ml/min/1.73 sqM); Potassium 4.8 mmol/L (3.5-5.1); Sodium 135 mmol/L (137-145)
--- NOTE | 2019-11-05 12:01 | P.GSHP ---
<Angie Muñoz Kvng - Last Filed: 11/05/19 11:55> History of Present Illness H&P Date: 11/05/19 CHIEF COMPLAINT: drainage from surgical site HISTORY OF PRESENT ILLNESS: 44-year-old female who underwent repair of incarcerated incisional hernia with mesh on 05/22/[address] Bentley. Patient states she has been doing well postoperatively. For the past month, she reports intermittent tightness and pulling near the umbilicus. She states about a week ago, she was attempting to get into a bed that was pretty high off the ground for the patient. She states the next morning, she woke up and noticed drainage on her abdomen from coming from her previous incision. She states the drainage was purulent and malodorous. She reports having a dental procedure earlier this week and was placed on antibiotics. She states the drainage has become more clear yellow and no longer has a foul odor. PAST MEDICAL HISTORY: See list. PAST SURGICAL HISTORY: See list. SOCIAL HISTORY: No illicit drug use. REVIEW OF SYSTEMS: CONSTITUTIONAL: Denies fever or chills. HEENT: Denies blurred vision, vision changes, or eye pain. Denies hemoptysis CARDIOVASCULAR: Denies chest pain or pressure. RESPIRATORY: No shortness of breath. GASTROINTESTINAL: Refer to HPI for pertinent findings HEMATOLOGIC: Denies bleeding disorders. GENITOURINARY: Denies any blood in urine. SKIN: Denies pruitis. Denies rash. PHYSICAL EXAM: VITAL SIGNS: Reviewed. GENERAL: Well-developed in no acute distress. HEENT: No sclera icterus. Extraocular movements grossly intact. Moist buccal mucosa. Head is atraumatic, normocephalic. ABDOMEN: Soft. Nondistended. Very small opening at umbilicus with serous drainage. No surrounding erythema. Nontender. NEUROLOGIC: Alert and oriented. Cranial nerves II through XII grossly intact. LABORATORY DATA: WBC 13.8. Hemoglobin 14.1. Platelet count 281. Most recent lactic acid 4.4. IMAGING: CT abdomen and pelvis: Diffuse soft tissue edema with skin thickening and irregularity round Dermis suggestive of open wound. Correlate for diffuse cellulitis. ASSESSMENT: 1. Abdominal wall abscess 2. History of incarcerated incisional hernia with mesh on 05/22/2019 3. Previous hernia repair with postoperative infection, + MRSA PLAN: NPO Continue IV antibiotics Await wound cultures Patient to undergo I&D of abdominal wall abscess today with possible removal of mesh Nurse practitioner note has been reviewed by physician. Signing provider agrees with the documented findings, assessment, and plan of care. Past Medical History Past Medical History: Asthma, COPD, Fibromyalgia, Osteoarthritis (OA), Seizure Disorder, Sleep Apnea/CPAP/BIPAP Additional Past Medical History / Comment(s): last seizure 6 months ago, migraines, varicose veins, no cpap used, urinary leakage/urgency History of Any Multi-Drug Resistant Organisms: MRSA Date of last positivie culture/infection: 2012 MDRO Source:: abdomen Past Surgical History: Cholecystectomy, Hernia Repair Additional Past Surgical History / Comment(s): surgery on archie little fingers to straigten them, Past Anesthesia/Blood Transfusion Reactions: Motion Sickness, Postoperative Nausea & Vomiting (PONV) Past Psychological History: Anxiety, Bipolar, Depression, PTSD Smoking Status: Current every day smoker Past Alcohol Use History: Occasional Additional Past Alcohol Use History / Comment(s): smokes 1/2 PPD, has smoked since age 18 Past Drug Use History: Marijuana - Past Family History Daughter(s) Family Medical History: Cancer Additional Family Medical History / Comment(s): 4 years ago from non-hogkins lymphoma Mother Family Medical History: Cancer Additional Family Medical History / Comment(s): liver cancer Medications and Allergies Home Medications Medication Instructions Recorded Confirmed Type Albuterol Inhaler [Ventolin Hfa 2 puff INHALATION RT-BID 05/18/19 11/04/19 History Inhaler] Beclomethasone Dipropionate [Qvar 1 puff INHALATION RT-DAILY 05/18/19 11/04/19 History 40 mcg Redihaler] Hydrochlorothiazide [Hydrodiuril] 25 mg PO DAILY 05/18/19 11/04/19 History Oxybutynin Chloride 5 mg PO BID 05/18/19 11/04/19 History Amoxicillin 500 mg PO Q8H 11/04/19 11/04/19 History Divalproex Sodium [Divalproex 500 mg PO BID 11/04/19 11/04/19 History Sodium ER] Flunisolide [Aerospan] 1 puff INHALATION RT-HS 11/04/19 11/04/19 History Nicotine 21Mg/24Hr Patch [Habitrol] 1 patch TRANSDERM DAILY 11/04/19 11/04/19 History Venlafaxine HCl ER [Effexor Xr] 150 mg PO DAILY 11/04/19 11/04/19 History oxyCODONE HCL/ACETAMINOPHEN 1 tab PO QID 11/04/19 11/04/19 History [Percocet 10-325 mg] Allergies Allergy/AdvReac Type Severity Reaction Status Date / Time Penicillins Allergy Severe Dyspnea Verified 11/05/19 13:09 bee venom protein (honey bee) Allergy Dyspnea Verified 11/05/19 13:09 Iodinated Contrast Media Allergy mouth numb Verified 11/05/19 13:09 [Iodinated Contrast- Oral for 1 and IV Dye] week/loss of taste Surgical - Exam Vital Signs Temp Pulse Resp BP Pulse Ox 98.2 F 99 18 140/97 95 11/04/19 18:23 11/04/19 18:23 11/04/19 18:23 11/04/19 18:23 11/04/19 18:23 Results - Labs 11/05/19 03:11 11/05/19 09:21 Abnormal Lab Results - Last 24 Hours (Table) 11/04/19 11/04/19 11/04/19 Range/Units 19:00 19:00 19:00 WBC 12.0 H (3.8-10.6) k/uL Neutrophils # 7.8 H (1.3-7.7) k/uL Sodium (137-145) mmol/L Carbon Dioxide (22-30) mmol/L Glucose 140 H (74-99) mg/dL Plasma Lactic Acid Leon 2.6 H* (0.7-2.0) mmol/L Urine Protein (Negative) Urine Ketones (Negative) 11/04/19 11/04/19 11/05/19 Range/Units 22:58 Unknown 03:11 WBC 13.8 H (3.8-10.6) k/uL Neutrophils # 12.5 H (1.3-7.7) k/uL Sodium (137-145) mmol/L Carbon Dioxide (22-30) mmol/L Glucose (74-99) mg/dL Plasma Lactic Acid Leon 3.4 H* (0.7-2.0) mmol/L Urine Protein Trace H (Negative) Urine Ketones 1+ H (Negative) 11/05/19 11/05/19 11/05/19 Range/Units 03:11 07:51 09:21 WBC (3.8-10.6) k/uL Neutrophils # (1.3-7.7) k/uL Sodium 135 L (137-145) mmol/L Carbon Dioxide 19 L (22-30) mmol/L Glucose 205 H (74-99) mg/dL Plasma Lactic Acid Leon 4.9 H* 4.4 H* (0.7-2.0) mmol/L Urine Protein (Negative) Urine Ketones (Negative) Microbiology - Last 24 Hours (Table) 11/04/19 19:15 Gram Stain - Preliminary Abdomen Wound Culture - Preliminary Diabetes panel 11/04/19 11/05/19 Range/Units 19:00 09:21 Sodium 137 135 L (137-145) mmol/L Potassium 4.7 4.8 (3.5-5.1) mmol/L Chloride 103 103 (98-107) mmol/L Carbon Dioxide 25 19 L (22-30) mmol/L BUN 15 16 (7-17) mg/dL Creatinine 0.67 0.52 (0.52-1.04) mg/dL Glucose 140 H 205 H (74-99) mg/dL Calcium 9.7 9.1 (8.4-10.2) mg/dL AST 16 (14-36) U/L ALT 12 (9-52) U/L Alkaline Phosphatase 63 (38-126) U/L Total Protein 7.3 (6.3-8.2) g/dL Albumin 3.9 (3.5-5.0) g/dL Calcium panel 11/04/19 11/05/19 Range/Units 19:00 09:21 Calcium 9.7 9.1 (8.4-10.2) mg/dL Albumin 3.9 (3.5-5.0) g/dL Pituitary panel 11/04/19 11/05/19 Range/Units 19:00 09:21 Sodium 137 135 L (137-145) mmol/L Potassium 4.7 4.8 (3.5-5.1) mmol/L Chloride 103 103 (98-107) mmol/L Carbon Dioxide 25 19 L (22-30) mmol/L BUN 15 16 (7-17) mg/dL Creatinine 0.67 0.52 (0.52-1.04) mg/dL Glucose 140 H 205 H (74-99) mg/dL Calcium 9.7 9.1 (8.4-10.2) mg/dL Adrenal panel 11/04/19 11/05/19 Range/Units 19:00 09:21 Sodium 137 135 L (137-145) mmol/L Potassium 4.7 4.8 (3.5-5.1) mmol/L Chloride 103 103 (98-107) mmol/L Carbon Dioxide 25 19 L (22-30) mmol/L BUN 15 16 (7-17) mg/dL Creatinine 0.67 0.52 (0.52-1.04) mg/dL Glucose 140 H 205 H (74-99) mg/dL Calcium 9.7 9.1 (8.4-10.2) mg/dL Total Bilirubin 0.4 (0.2-1.3) mg/dL AST 16 (14-36) U/L ALT 12 (9-52) U/L Alkaline Phosphatase 63 (38-126) U/L Total Protein 7.3 (6.3-8.2) g/dL Albumin 3.9 (3.5-5.0) g/dL <Aristeo Bentley - Last Filed: 11/05/19 13:26> History of Present Illness As above. Patient is known to our service. Patient underwent recent repair recurrent incisional hernia in April of this year. An 8 cm subfascial mesh was placed at that time. Postoperatively the patient did well up until recently. One week ago moved rather abruptly and felt pain and subsequent drainage from the lower aspect of the incision. CAT scan confirms inflammatory changes with fluid. Previously patient had an infected umbilical hernia repair with mesh. Apparently at that time mesh was not removed. She did have full healing following that. Clinical scenario discussed with the patient. We will open the patient's previous incision. Will drain whatever fluid collection is present. We'll debride if necessary. Possible mesh removal as well. Risks of bleeding, infection, recurrent hernia, recurrent infection, fistula, chronic wound formation, pain, progressive sepsis discussed. She understands and wishes to proceed. Surgical - Exam Vital Signs Temp Pulse Resp BP Pulse Ox 98.2 F 99 18 140/97 95 11/04/19 18:23 11/04/19 18:23 11/04/19 18:23 11/04/19 18:23 11/04/19 18:23 Results - Labs 11/05/19 03:11 11/05/19 09:21 Abnormal Lab Results - Last 24 Hours (Table) 11/04/19 11/04/19 11/04/19 Range/Units 19:00 19:00 19:00 WBC 12.0 H (3.8-10.6) k/uL Neutrophils # 7.8 H (1.3-7.7) k/uL Sodium (137-145) mmol/L Carbon Dioxide (22-30) mmol/L Glucose 140 H (74-99) mg/dL Plasma Lactic Acid Leon 2.6 H* (0.7-2.0) mmol/L Urine Protein (Negative) Urine Ketones (Negative) 11/04/19 11/04/19 11/05/19 Range/Units 22:58 Unknown 03:11 WBC 13.8 H (3.8-10.6) k/uL Neutrophils # 12.5 H (1.3-7.7) k/uL Sodium (137-145) mmol/L Carbon Dioxide (22-30) mmol/L Glucose (74-99) mg/dL Plasma Lactic Acid Leon 3.4 H* (0.7-2.0) mmol/L Urine Protein Trace H (Negative) Urine Ketones 1+ H (Negative) 11/05/19 11/05/19 11/05/19 Range/Units 03:11 07:51 09:21 WBC (3.8-10.6) k/uL Neutrophils # (1.3-7.7) k/uL Sodium 135 L (137-145) mmol/L Carbon Dioxide 19 L (22-30) mmol/L Glucose 205 H (74-99) mg/dL Plasma Lactic Acid Leon 4.9 H* 4.4 H* (0.7-2.0) mmol/L Urine Protein (Negative) Urine Ketones (Negative) 11/05/19 Range/Units 11:58 WBC (3.8-10.6) k/uL Neutrophils # (1.3-7.7) k/uL Sodium (137-145) mmol/L Carbon Dioxide (22-30) mmol/L Glucose (74-99) mg/dL Plasma Lactic Acid Leon 3.7 H* (0.7-2.0) mmol/L Urine Protein (Negative) Urine Ketones (Negative) Microbiology - Last 24 Hours (Table) 11/04/19 19:15 Gram Stain - Preliminary Abdomen Wound Culture - Preliminary Diabetes panel 11/04/19 11/05/19 Range/Units 19:00 09:21 Sodium 137 135 L (137-145) mmol/L Potassium 4.7 4.8 (3.5-5.1) mmol/L Chloride 103 103 (98-107) mmol/L Carbon Dioxide 25 19 L (22-30) mmol/L BUN 15 16 (7-17) mg/dL Creatinine 0.67 0.52 (0.52-1.04) mg/dL Glucose 140 H 205 H (74-99) mg/dL Calcium 9.7 9.1 (8.4-10.2) mg/dL AST 16 (14-36) U/L ALT 12 (9-52) U/L Alkaline Phosphatase 63 (38-126) U/L Total Protein 7.3 (6.3-8.2) g/dL Albumin 3.9 (3.5-5.0) g/dL Calcium panel 11/04/19 11/05/19 Range/Units 19:00 09:21 Calcium 9.7 9.1 (8.4-10.2) mg/dL Albumin 3.9 (3.5-5.0) g/dL Pituitary panel 11/04/19 11/05/19 Range/Units 19:00 09:21 Sodium 137 135 L (137-145) mmol/L Potassium 4.7 4.8 (3.5-5.1) mmol/L Chloride 103 103 (98-107) mmol/L Carbon Dioxide 25 19 L (22-30) mmol/L BUN 15 16 (7-17) mg/dL Creatinine 0.67 0.52 (0.52-1.04) mg/dL Glucose 140 H 205 H (74-99) mg/dL Calcium 9.7 9.1 (8.4-10.2) mg/dL Adrenal panel 11/04/19 11/05/19 Range/Units 19:00 09:21 Sodium 137 135 L (137-145) mmol/L Potassium 4.7 4.8 (3.5-5.1) mmol/L Chloride 103 103 (98-107) mmol/L Carbon Dioxide 25 19 L (22-30) mmol/L BUN 15 16 (7-17) mg/dL Creatinine 0.67 0.52 (0.52-1.04) mg/dL Glucose 140 H 205 H (74-99) mg/dL Calcium 9.7 9.1 (8.4-10.2) mg/dL Total Bilirubin 0.4 (0.2-1.3) mg/dL AST 16 (14-36) U/L ALT 12 (9-52) U/L Alkaline Phosphatase 63 (38-126) U/L Total Protein 7.3 (6.3-8.2) g/dL Albumin 3.9 (3.5-5.0) g/dL
[2019-11-05] MEDS ORDERED: IV FLUID CONTINUATION 1,000 ML IV ONE (13:05)
[2019-11-05] MEDS ORDERED: ONDANSETRON 4 MG/2 ML VIAL IVP ONE (13:45)
[2019-11-05] MEDS ORDERED: DEXAMETHASONE SOD PHOSPHATE 10 MG/ML 1 ML VIAL IV ONE (13:45)
[2019-11-05] MEDS ORDERED: SCOPOLAMINE 1.5MG/72HR PATCH TRANSDERM ONE (13:45)
[2019-11-05] MEDS ORDERED: HEPARIN SODIUM,PORCINE 5,000 UNIT/ML 1 ML VIAL ONE (13:55)
[2019-11-05] MEDS ORDERED: SUCCINYLCHOLINE CHLORIDE VIAL 200 MG/10 ML VIAL IV ONE (13:55)
[2019-11-05] MEDS ORDERED: ROCURONIUM BROMIDE 10 MG/ML 10 ML VIAL IV ONE (13:55)
[2019-11-05] MEDS ORDERED: LIDOCAINE 1% INJ 10MG/ML (20 ML MDV) ONE (13:55)
[2019-11-05] MEDS ORDERED: PROPOFOL 10 MG/ML 20 ML VIAL IV ONE (13:55)
[2019-11-05] MEDS ORDERED: GLYCOPYRROLATE 0.2 MG/ML 2 ML VIAL ONE (13:55)
[2019-11-05] MEDS ORDERED: MIDAZOLAM 2 MG/2 ML VIAL ONE (13:55)
[2019-11-05] MEDS ORDERED: NEOSTIGMINE 1 MG/ML 10 ML VIAL ONE (13:55)
[2019-11-05] MEDS ORDERED: fentaNYL (PF) 50 MCG/ML 2 ML AMP ONE (13:55)
[2019-11-05] MEDS ORDERED: NALOXONE 0.4 MG/ML 1 ML VIAL IV PRN (15:31)
--- NOTE | 2019-11-05 15:37 | P.OP ---
Date of Procedure: 11/05/19 Procedure(s) Performed: PREOPERATIVE DIAGNOSIS: Infected abdominal wall fluid collection POSTOPERATIVE DIAGNOSIS: Same with infected subfascial mesh PROCEDURE: Incision and drainage of abdominal wall fluid collection with removal subfascial mesh and fascial closure SURGEON: Mc EBL: 25 Emily ANESTHESIA: Gen. COMPLICATIONS: None OPERATIVE PROCEDURE: Applications placed in the supine position. Patient then placed under general anesthesia. Abdomen prepped and draped sterilely. Previous periumbilical incision incised extending to the inferior aspect of the incision where there was a small open wound. Using a hemostat I followed the track of the wound deep down into the subcutaneous tissues towards the base of the umbilicus using electrocautery. Initially it appeared the wound was superficial however as we kept inspecting the deep portion of the wound bed were able to identify a very small opening in the fascia and when this area was spread bluntly purulent fluid was identified. At the base of this purulent fluid was noted to be a piece of mesh. I then opened the fascia further in a vertical manner. Some of the previous 0 Ethibond sutures were excised. The mesh was definitely involved in the infection. It appeared the patient actually had 2 portions of ventral ex mesh. Both pieces were removed as they were adherent to one another in one piece. This required significant blunt dissection in order to remove the mesh that was adherent for a good portion of it. The bowel thankfully was not visualized to be adherent to the mesh. The specimen was passed off. The area was irrigated with saline. Again there were adhesions beneath the fascia that was exposed. I could not visualize bowel or any iatrogenic injury. No further dissection took place for fear of the possibility of causing iatrogenic injury. The fascia was then reapproximated using [id number] #1 Vicryl sutures. This adequately closed the fascia in a vertical manner. Curlex roll was then used in the wound itself. Sterile outer dressing applied. DISPOSITION: Stable to recovery room
[2019-11-05] MEDS ORDERED: VANCOMYCIN IV PER PHARMACY 1 EACH MISC MISCELLANE PRN (15:59)
[2019-11-05] MEDS: HEPARIN SODIUM,PORCINE 5,000 UNIT/ML 1 ML VIAL SQ SCH (16:40)
[2019-11-05] MEDS: HYDROmorphone 1 MG/ML 1 ML SYRINGE IVP ONE ×2 (16:41→16:46)
[2019-11-05] MEDS ORDERED: LACTATED RINGERS 1,000 ML IV ONE (16:44)
[2019-11-05] MEDS ORDERED: VANCOMYCIN 2,250 MG in SODIUM CHLORIDE 0.9% 500 ML 500 ML IVPB ONE (17:00)
[2019-11-05] MEDS ORDERED: VANCOMYCIN 2,500 MG in SODIUM CHLORIDE 0.9% 500 ML 500 ML IVPB ONE (17:00)
--- NOTE | 2019-11-05 17:28 | P.CONS ---
History of Present Illness - Reason for Consult Consult date: 11/05/19 asthma, seizures - History of Present Illness This is a 44y/o female who is new and not been sen in our practice yet. She had undergone and abdominal hernia repair in March [address] Bentley. She report strectching recently and her umbilical incision tore open and purulent D/C came from the opening. Shehas been admitted for further Tx. She has a h/o seizures ,last 6 m/o ago. She takes Depakote for this. She is asthmatic and smokes. She uses albuterol for this. Today SHe denies any chest pain, pressure, SOB at rest, Nausea or vomiting. Review of Systems All systems: negative Past Medical History Past Medical History: Asthma, COPD, Fibromyalgia, Osteoarthritis (OA), Seizure Disorder, Sleep Apnea/CPAP/BIPAP Additional Past Medical History / Comment(s): last seizure 6 months ago, migraines, varicose veins, no cpap used, urinary leakage/urgency History of Any Multi-Drug Resistant Organisms: MRSA Year Discovered:: 2012 MDRO Source:: abdomen Past Surgical History: Cholecystectomy, Hernia Repair Additional Past Surgical History / Comment(s): surgery on archie little fingers to straigten them, Past Anesthesia/Blood Transfusion Reactions: Motion Sickness, Postoperative Nausea & Vomiting (PONV) Past Psychological History: Anxiety, Bipolar, Depression, PTSD Smoking Status: Current every day smoker Past Alcohol Use History: Occasional Additional Past Alcohol Use History / Comment(s): smokes 1/2 PPD, has smoked since age 18 Past Drug Use History: Marijuana - Past Family History Daughter(s) Family Medical History: Cancer Additional Family Medical History / Comment(s): 4 years ago from non-hogkins lymphoma Mother Family Medical History: Cancer Additional Family Medical History / Comment(s): liver cancer Medications and Allergies Home Medications Medication Instructions Recorded Confirmed Type Albuterol Inhaler [Ventolin Hfa 2 puff INHALATION RT-BID 05/18/19 11/04/19 History Inhaler] Beclomethasone Dipropionate [Qvar 1 puff INHALATION RT-DAILY 05/18/19 11/04/19 History 40 mcg Redihaler] Hydrochlorothiazide [Hydrodiuril] 25 mg PO DAILY 05/18/19 11/04/19 History Oxybutynin Chloride 5 mg PO BID 05/18/19 11/04/19 History Amoxicillin 500 mg PO Q8H 11/04/19 11/04/19 History Divalproex Sodium [Divalproex 500 mg PO BID 11/04/19 11/04/19 History Sodium ER] Flunisolide [Aerospan] 1 puff INHALATION RT-HS 11/04/19 11/04/19 History Nicotine 21Mg/24Hr Patch [Habitrol] 1 patch TRANSDERM DAILY 11/04/19 11/04/19 History Venlafaxine HCl ER [Effexor Xr] 150 mg PO DAILY 11/04/19 11/04/19 History oxyCODONE HCL/ACETAMINOPHEN 1 tab PO QID 11/04/19 11/04/19 History [Percocet 10-325 mg] Allergies Allergy/AdvReac Type Severity Reaction Status Date / Time Penicillins Allergy Severe Dyspnea Verified 11/05/19 13:09 bee venom protein (honey bee) Allergy Dyspnea Verified 11/05/19 13:09 Iodinated Contrast Media Allergy mouth numb Verified 11/05/19 13:09 [Iodinated Contrast- Oral for 1 and IV Dye] week/loss of taste Physical Exam Vitals: Vital Signs Temp Pulse Pulse Resp BP BP Pulse Ox 11/05/19 17:01 96 14 111/52 93 L 11/05/19 16:45 94 16 138/70 96 11/05/19 16:30 95 16 145/72 95 11/05/19 16:18 94 16 123/74 96 11/05/19 13:57 98.9 F 103 H 14 135/47 94 L 11/05/19 13:06 97.4 F L 88 16 147/76 94 L 11/05/19 08:50 86 11/05/19 08:39 84 11/05/19 08:05 98.1 F 87 17 131/63 95 11/05/19 04:53 16 11/04/19 23:18 16 11/04/19 22:53 98.8 F 93 16 159/88 95 11/04/19 22:37 80 18 136/81 99 11/04/19 18:23 98.2 F 99 18 140/97 95 Intake and Output 11/05/19 11/05/19 11/05/19 06:59 14:59 22:59 Intake Total 350 400 Balance 350 400 Intake: IV 350 400 Other: Voiding Method Toilet Toilet # Voids 1 Weight 156.943 kg - Constitutional General appearance: morbidly obese - EENT Eyes: PERRLA - Neck Neck: no lymphadenopathy, no thyromegaly Thyroid: bilateral: normal size - Respiratory Respiratory: bilateral: diminished - Cardiovascular Rhythm: regular Heart sounds: normal: S1, S2 Abnormal Heart Sounds: no systolic murmur - Gastrointestinal General gastrointestinal: normal bowel sounds Localized gastrointestinal: tender: epigastric periumbilical (laceration with dried d/c present) - Integumentary Integumentary: no calor - Neurologic Neurologic: CNII-XII intact - Musculoskeletal Musculoskeletal: gait normal - Psychiatric Psychiatric: A&O x's 3 Results CBC & Chem 7: 11/05/19 03:11 11/05/19 09:21 Labs: Abnormal Lab Results - Last 24 Hours (Table) 11/04/19 11/04/19 11/04/19 Range/Units 19:00 19:00 19:00 WBC 12.0 H (3.8-10.6) k/uL Neutrophils # 7.8 H (1.3-7.7) k/uL Sodium (137-145) mmol/L Carbon Dioxide (22-30) mmol/L Glucose 140 H (74-99) mg/dL Plasma Lactic Acid Leon 2.6 H* (0.7-2.0) mmol/L Urine Protein (Negative) Urine Ketones (Negative) 11/04/19 11/04/19 11/05/19 Range/Units 22:58 Unknown 03:11 WBC 13.8 H (3.8-10.6) k/uL Neutrophils # 12.5 H (1.3-7.7) k/uL Sodium (137-145) mmol/L Carbon Dioxide (22-30) mmol/L Glucose (74-99) mg/dL Plasma Lactic Acid Leon 3.4 H* (0.7-2.0) mmol/L Urine Protein Trace H (Negative) Urine Ketones 1+ H (Negative) 11/05/19 11/05/19 11/05/19 Range/Units 03:11 07:51 09:21 WBC (3.8-10.6) k/uL Neutrophils # (1.3-7.7) k/uL Sodium 135 L (137-145) mmol/L Carbon Dioxide 19 L (22-30) mmol/L Glucose 205 H (74-99) mg/dL Plasma Lactic Acid Leon 4.9 H* 4.4 H* (0.7-2.0) mmol/L Urine Protein (Negative) Urine Ketones (Negative) 11/05/19 Range/Units 11:58 WBC (3.8-10.6) k/uL Neutrophils # (1.3-7.7) k/uL Sodium (137-145) mmol/L Carbon Dioxide (22-30) mmol/L Glucose (74-99) mg/dL Plasma Lactic Acid Leon 3.7 H* (0.7-2.0) mmol/L Urine Protein (Negative) Urine Ketones (Negative) Microbiology - Last 24 Hours (Table) 11/04/19 19:15 Gram Stain - Preliminary Abdomen Wound Culture - Preliminary CT scan - abdomen: report reviewed Assessment and Plan (1) Seizure disorder Current Visit: Yes Status: Acute Code(s): G40.909 - EPILEPSY, UNSP, NOT INTRACTABLE, WITHOUT STATUS EPILEPTICUS SNOMED Code(s): 848674289 (2) Tobacco abuse Current Visit: Yes Status: Acute Code(s): Z72.0 - TOBACCO USE SNOMED Code(s): 972556061 (3) Asthma Current Visit: Yes Status: Acute Code(s): J45.909 - UNSPECIFIED ASTHMA, UNCOMPLICATED SNOMED Code(s): 780610263 (4) Chronic, continuous use of opioids Current Visit: Yes Status: Acute Code(s): F11.90 - OPIOID USE, UNSPECIFIED, UNCOMPLICATED SNOMED Code(s): 037372933 (5) Essential (primary) hypertension Current Visit: Yes Status: Acute Code(s): I10 - ESSENTIAL (PRIMARY) HYPERTENSION SNOMED Code(s): 56438356 (6) Cellulitis of periumbilical region Current Visit: Yes Status: Acute Code(s): L03.319 - CELLULITIS OF TRUNK, UNSPECIFIED SNOMED Code(s): 30780010 (7) External incisional dehiscence Current Visit: Yes Status: Acute Code(s): T81.31XA - DISRUPTION OF EXTERNAL OPERATION (SURGICAL) WOUND, NEC, INIT SNOMED Code(s): 958210089198505 (8) Morbid obesity with BMI of 60.0-69.9, adult Current Visit: No Status: Acute Code(s): E66.01 - MORBID (SEVERE) OBESITY DUE TO EXCESS CALORIES; Z68.44 - BODY MASS INDEX (BMI) 60.0-69.9, ADULT SNOMED Code(s): 812394178 Plan: restart home meds - percocet as she is on IV Morphine repeat labs in am Seizure precaustions will reevaulate in 24 hrs
[2019-11-05] MEDS: HYDROcodone/APAP 5-325MG 1 EACH TAB PO PRN (21:50)
[2019-11-06] MEDS ORDERED: VANCOMYCIN 2,250 MG in SODIUM CHLORIDE 0.9% 500 ML 500 ML IVPB SCH ×2
[2019-11-06] MEDS: HEPARIN SODIUM,PORCINE 5,000 UNIT/ML 1 ML VIAL SQ SCH ×3 (00:17→18:19)
[2019-11-06] MEDS: MORPHINE SULFATE 4 MG/ML SYRINGE IV PRN ×3 (04:49→14:26)
[2019-11-06 05:59] LABS: Basophils % (A) 0 %; Eosinophils # (A) 0.2 k/uL (0-0.7); Eosinophils % (A) 1 %; HCT 40.4 % (34.0-46.0); HGB 13.1 gm/dL (11.4-16.0); Lymphocytes % (A) 12 %; MCH 29.8 pg (25.0-35.0); MCHC 32.3 g/dL (31.0-37.0); MCV 92.1 fL (80.0-100.0); Mean Platelet Volume 7.8; Monocytes # (A) 0.7 k/uL (0-1.0); Monocytes % (A) 4 %; Neutrophils # (A) 13.2 k/uL (1.3-7.7); Neutrophils % (A) 81 %; Platelet Count 284 k/uL (150-450); RBC 4.39 m/uL (3.80-5.40); RDW 14.2 % (11.5-15.5); WBC 16.3 k/uL (3.8-10.6)
[2019-11-06] MEDS: PIPERACILLIN-TAZOBACTAM 3.375 GM in SODIUM CHLORIDE 0.9% 100 ML IVPB SCH ×2 (06:02→15:22)
[2019-11-06 06:11] LABS: ALT 19 U/L (4-34); AST 16 U/L (14-36); African American GFR (CKD) >90 (>60 ml/min/1.73 sqM); Albumin 3.8 g/dL (3.5-5.0); Alkaline Phosphatase 59 U/L (38-126); Anion Gap 12 mmol/L; Blood Urea Nitrogen 18 mg/dL (7-17); Calcium 9.1 mg/dL (8.4-10.2); Carbon Dioxide 22 mmol/L (22-30); Chloride 102 mmol/L (98-107); Glucose 177 mg/dL (74-99); Non-African American GFR(CKD) >90 (>60 ml/min/1.73 sqM); Potassium 4.4 mmol/L (3.5-5.1); Sodium 136 mmol/L (137-145); Total Bilirubin 0.3 mg/dL (0.2-1.3); Total Protein 6.9 g/dL (6.3-8.2)
[2019-11-06] MEDS: FLUNISOLIDE INHALATION SCH (07:01)
[2019-11-06] MEDS: SODIUM CHLORIDE 0.9% 1,000 ML IV SCH ×2 (07:02→18:19)
[2019-11-06] MEDS: HYDROcodone/APAP 5-325MG 1 EACH TAB PO PRN ×4 (07:23→21:04)
[2019-11-06] MEDS: FLUTICASONE 44 MCG INHALER INHALATION SCH (08:54)
[2019-11-06] MEDS: ALBUTEROL NEBULIZED 2.5 MG/3 ML INHALATION SCH ×2 (08:57→19:07)
[2019-11-06] MEDS: NICOTINE 21MG/24HR PATCH TRANSDERM SCH (09:20)
[2019-11-06] MEDS: DIVALPROEX ER 500 MG TAB.ER.24H PO SCH ×2 (09:20→20:56)
[2019-11-06] MEDS: VENLAFAXINE HCL ER 150 MG CAP PO SCH (09:20)
[2019-11-06] MEDS: HYDROCHLOROTHIAZIDE 25 MG TAB PO SCH (09:20)
[2019-11-06] MEDS: OXYBUTYNIN CHLORIDE 5 MG TAB PO SCH ×2 (09:20→20:56)
[2019-11-06] MEDS: VANCOMYCIN 2,250 MG in SODIUM CHLORIDE 0.9% 500 ML 500 ML IVPB SCH ×2 (10:36→19:45)
--- NOTE | 2019-11-06 12:10 | P.PN ---
<Angie Muñoz Kvng - Last Filed: 11/06/19 12:08> Subjective Progress Note Date: 11/06/19 CHIEF COMPLAINT: drainage from surgical site HISTORY OF PRESENT ILLNESS: patient is status post incision and drainage of abdominal wall fluid collection removal subcufascial mesh and fascial closure. POD #1. patient examined at the bedside. She reports her pain is tolerable. Denies nausea or vomiting. Tolerating diet. W BC 16.3. Lactic acid 2.2. PHYSICAL EXAM: VITAL SIGNS: Reviewed. GENERAL: Well-developed in no acute distress. HEENT: No sclera icterus. Extraocular movements grossly intact. Moist buccal mucosa. Head is atraumatic, normocephalic. ABDOMEN: Soft. Nondistended. Wound with packing noted with serosanguineous drainage. NEUROLOGIC: Alert and oriented. Cranial nerves II through XII grossly intact. ASSESSMENT: 1. Abdominal wall abscess 2. History of incarcerated incisional hernia with mesh on 05/22/2019 3. Previous hernia repair with postoperative infection, + MRSA PLAN: Dr. Peterson on consult. Continue antibiotics per ID. monitor WBC. Await wound cultures continue diet as tolerated. pain control Increase activity as tolerated Nurse practitioner note has been reviewed by physician. Signing provider agrees with the documented findings, assessment, and plan of care. Objective - Vital Signs Vital signs: Vital Signs Temp 98.5 F 11/06/19 07:16 Pulse 85 11/06/19 07:16 Resp 18 11/06/19 07:16 BP 121/74 11/06/19 07:16 Pulse Ox 96 11/06/19 07:16 Intake & Output 11/05/19 11/06/19 11/06/19 18:59 06:59 18:59 Intake Total 930 3060 820 Output Total 325 Balance 930 2735 820 Intake: IV 750 Intake, IV Titration 900 Amount Sodium Chloride 0.9% 1, 400 000 ml @ 100 mls/hr IV . Q10H MICHA Rx#:[id number] Vancomycin 2,250 mg In 500 Sodium Chloride 0.9% 500 ml 500 ml @ 167 mls/hr IVPB Q8H MICHA Rx#: [id number] Oral 180 2160 820 Output: Urine 325 Other: Voiding Method Toilet Toilet # Voids 3 - Labs CBC & Chem 7: 11/06/19 05:42 11/06/19 05:42 Labs: Abnormal Lab Results - Last 24 Hours (Table) 11/05/19 11/05/19 11/05/19 Range/Units 11:58 17:22 21:14 WBC (3.8-10.6) k/uL Neutrophils # (1.3-7.7) k/uL Sodium (137-145) mmol/L BUN (7-17) mg/dL Glucose (74-99) mg/dL Plasma Lactic Acid Leon 3.7 H* 3.2 H* 4.4 H* (0.7-2.0) mmol/L 11/06/19 11/06/19 11/06/19 Range/Units 01:00 05:42 05:42 WBC 16.3 H (3.8-10.6) k/uL Neutrophils # 13.2 H (1.3-7.7) k/uL Sodium 136 L (137-145) mmol/L BUN 18 H (7-17) mg/dL Glucose 177 H (74-99) mg/dL Plasma Lactic Acid Leon 4.1 H* (0.7-2.0) mmol/L 11/06/19 11/06/19 Range/Units 05:42 10:27 WBC (3.8-10.6) k/uL Neutrophils # (1.3-7.7) k/uL Sodium (137-145) mmol/L BUN (7-17) mg/dL Glucose (74-99) mg/dL Plasma Lactic Acid Leon 3.3 H* 2.2 H* (0.7-2.0) mmol/L Microbiology - Last 24 Hours (Table) 11/05/19 09:21 Blood Culture - Preliminary Blood No Growth after 24 hours 11/05/19 15:02 Gram Stain - Preliminary Abdomen Wound Culture - Preliminary 11/05/19 15:02 Anaerobic Culture - Preliminary Abdomen 11/04/19 20:00 Blood Culture - Preliminary Blood No Growth after 24 hours 11/04/19 19:15 Gram Stain - Preliminary Abdomen Wound Culture - Preliminary <Aristeo Bentley - Last Filed: 11/06/19 13:37> Subjective as above. Patient doing well. Wound is clean. Will begin wound VAC therapy. Await cultures. Objective - Vital Signs Vital signs: Vital Signs Temp 98.5 F 11/06/19 07:16 Pulse 85 11/06/19 07:16 Resp 18 11/06/19 07:16 BP 121/74 11/06/19 07:16 Pulse Ox 96 11/06/19 07:16 Intake & Output 11/05/19 11/06/19 11/06/19 18:59 06:59 18:59 Intake Total 930 3060 1360 Output Total 325 Balance 930 2735 1360 Intake: IV 750 Intake, IV Titration 900 Amount Sodium Chloride 0.9% 1, 400 000 ml @ 100 mls/hr IV . Q10H MICHA Rx#:[id number] Vancomycin 2,250 mg In 500 Sodium Chloride 0.9% 500 ml 500 ml @ 167 mls/hr IVPB Q8H MICHA Rx#: [id number] Oral 180 2160 1360 Output: Urine 325 Other: Voiding Method Toilet Toilet # Voids 3 - Labs CBC & Chem 7: 11/06/19 05:42 11/06/19 05:42 Labs: Abnormal Lab Results - Last 24 Hours (Table) 11/05/19 11/05/19 11/06/19 Range/Units 17:22 21:14 01:00 WBC (3.8-10.6) k/uL Neutrophils # (1.3-7.7) k/uL Sodium (137-145) mmol/L BUN (7-17) mg/dL Glucose (74-99) mg/dL Plasma Lactic Acid Leon 3.2 H* 4.4 H* 4.1 H* (0.7-2.0) mmol/L 11/06/19 11/06/19 11/06/19 Range/Units 05:42 05:42 05:42 WBC 16.3 H (3.8-10.6) k/uL Neutrophils # 13.2 H (1.3-7.7) k/uL Sodium 136 L (137-145) mmol/L BUN 18 H (7-17) mg/dL Glucose 177 H (74-99) mg/dL Plasma Lactic Acid Leon 3.3 H* (0.7-2.0) mmol/L 11/06/19 Range/Units 10:27 WBC (3.8-10.6) k/uL Neutrophils # (1.3-7.7) k/uL Sodium (137-145) mmol/L BUN (7-17) mg/dL Glucose (74-99) mg/dL Plasma Lactic Acid Leon 2.2 H* (0.7-2.0) mmol/L Microbiology - Last 24 Hours (Table) 11/05/19 09:21 Blood Culture - Preliminary Blood No Growth after 24 hours 11/05/19 15:02 Gram Stain - Preliminary Abdomen Wound Culture - Preliminary 11/05/19 15:02 Anaerobic Culture - Preliminary Abdomen 11/04/19 20:00 Blood Culture - Preliminary Blood No Growth after 24 hours
--- NOTE | 2019-11-06 14:40 | P.CONS ---
History of Present Illness - Reason for Consult Consult date: 11/06/19 infected prosthetic mesh - History of Present Illness This is a 44-year-old morbidly obese female with history of incarcerated incisional hernia repair with mesh done on 05/22/[address] Bentley. For the past month patient has had intermittent tightness and pulling at the umbilicus. About one week ago she started having drainage from the wound area along with discomfort and pain and possibly some intermittent fevers. She states it was yellow in color. She has been recently on oral amoxicillin for a tooth infection. Patient came into [facility] emergency center for evaluation on November 04 and she was found to be afebrile, WBC initially 12.0 now at 16, lactic acid has been consistently elevated during her stay. Albumin 3.8, BUN 18 creatinine 0.61. Blood culture 2 are showing no growth at 24 hours. Wound cultures in progress. Yesterday, patient underwent I&D of infected abdominal wall fluid collection with infected subfascial mesh. Mesh was also removed. Patient states her abdomen is still sore. She relates that a wound VAC is planned. Discussed discharge planning the patient states that she is essentially homeless. She did tell returned case inspector that she is living with her cousin and plans to return there at the time of discharge. Patient relates to me that she has just been bouncing from place to place and is interested in having subacute rehab. Patient is currently on Zosyn and vancomycin.she states she has not had a bowel movement since procedure but is passing gas. Review of Systems Constitutional: Reports fatigue, Denies chills, Denies fever, Denies poor appetite, Denies weight loss Eyes: denies blurred vision, denies pain Ears, nose, mouth and throat: Denies headache, Denies sore throat, Denies vertigo Cardiovascular: Denies chest pain, Denies dyspnea on exertion, Denies edema, Denies lightheadedness, Denies shortness of breath, Denies syncope Respiratory: Reports sleep apnea, Denies cough, Denies cough with sputum, Denies excessive sputum, Denies hemoptysis, Denies home oxygen, Denies respiratory infections Gastrointestinal: Reports abdominal pain, Denies diarrhea, Denies nausea, Denies vomiting Genitourinary: Denies dysuria, Denies hematuria, Denies urgency, Denies urinary frequency Musculoskeletal: Denies frequent falls, Denies myalgias Integumentary: Denies pruritus, Denies rash Neurological: Denies numbness, Denies weakness Psychiatric: Denies anxiety, Denies depression Endocrine: Denies fatigue, Denies weight change Past Medical History Past Medical History: Asthma, COPD, Fibromyalgia, Osteoarthritis (OA), Seizure Disorder, Sleep Apnea/CPAP/BIPAP Additional Past Medical History / Comment(s): last seizure 6 months ago, migraines, varicose veins, no cpap used, urinary leakage/urgency History of Any Multi-Drug Resistant Organisms: MRSA Year Discovered:: 2012 MDRO Source:: abdomen Past Surgical History: Cholecystectomy, Hernia Repair Additional Past Surgical History / Comment(s): surgery on archie little fingers to straigten them, I&D of infected abdominal wall fluid collection with infected subfascial mesh and mesh removal. Past Anesthesia/Blood Transfusion Reactions: Motion Sickness, Postoperative Nausea & Vomiting (PONV) Past Psychological History: Anxiety, Bipolar, Depression, PTSD Smoking Status: Current every day smoker Past Alcohol Use History: Occasional Additional Past Alcohol Use History / Comment(s): smokes 1/2 PPD, has smoked since age 18 Past Drug Use History: Marijuana - Past Family History Daughter(s) Family Medical History: Cancer Additional Family Medical History / Comment(s): 4 years ago from non-hogkins lymphoma Mother Family Medical History: Cancer Additional Family Medical History / Comment(s): liver cancer Medications and Allergies Home Medications Medication Instructions Recorded Confirmed Type Albuterol Inhaler [Ventolin Hfa 2 puff INHALATION RT-BID 05/18/19 11/04/19 History Inhaler] Beclomethasone Dipropionate [Qvar 1 puff INHALATION RT-DAILY 05/18/19 11/04/19 History 40 mcg Redihaler] Hydrochlorothiazide [Hydrodiuril] 25 mg PO DAILY 05/18/19 11/04/19 History Oxybutynin Chloride 5 mg PO BID 05/18/19 11/04/19 History Amoxicillin 500 mg PO Q8H 11/04/19 11/04/19 History Divalproex Sodium [Divalproex 500 mg PO BID 11/04/19 11/04/19 History Sodium ER] Flunisolide [Aerospan] 1 puff INHALATION RT-HS 11/04/19 11/04/19 History Nicotine 21Mg/24Hr Patch [Habitrol] 1 patch TRANSDERM DAILY 11/04/19 11/04/19 History Venlafaxine HCl ER [Effexor Xr] 150 mg PO DAILY 11/04/19 11/04/19 History oxyCODONE HCL/ACETAMINOPHEN 1 tab PO QID 11/04/19 11/04/19 History [Percocet 10-325 mg] Allergies Allergy/AdvReac Type Severity Reaction Status Date / Time Penicillins Allergy Severe Dyspnea Verified 11/05/19 13:09 bee venom protein (honey bee) Allergy Dyspnea Verified 11/05/19 13:09 Iodinated Contrast Media Allergy mouth numb Verified 11/05/19 13:09 [Iodinated Contrast- Oral for 1 and IV Dye] week/loss of taste Physical Exam Vitals: Vital Signs Temp Pulse Pulse Resp BP BP Pulse Ox 11/06/19 13:44 98.0 F 89 15 119/70 96 11/06/19 07:16 98.5 F 85 18 121/74 96 11/06/19 01:30 98.1 F 94 16 111/70 94 L 11/05/19 20:20 90 16 11/05/19 20:14 92 L 11/05/19 20:11 92 16 11/05/19 18:14 102 H 119/70 11/05/19 17:59 101 H 125/69 11/05/19 17:44 106 H 83/54 11/05/19 17:29 98.8 F 99 16 123/61 99 11/05/19 17:01 96 14 111/52 93 L 11/05/19 16:45 94 16 138/70 96 11/05/19 16:30 95 16 145/72 95 11/05/19 16:18 94 16 123/74 96 Intake and Output 11/05/19 11/06/19 11/06/19 22:59 06:59 14:59 Intake Total 2440 1200 1360 Output Total 325 Balance 2115 1200 1360 Intake: IV 400 Intake, IV Titration 900 Amount Sodium Chloride 0.9% 1, 400 000 ml @ 100 mls/hr IV . Q10H MICHA Rx#:[id number] Vancomycin 2,250 mg In 500 Sodium Chloride 0.9% 500 ml 500 ml @ 167 mls/hr IVPB Q8H MICHA Rx#: [id number] Oral 1140 1200 1360 Output: Urine 325 Other: Voiding Method Toilet # Voids 1 3 Gen: This is a super morbid obese 44-year-old female. Patient's resting bed and appears to be comfortable. HEENT: Head is atraumatic, normocephalic. Pupils equal, round. Sclerae is anicteric. oral mucous membranes are moist. No thrush noted. Dentition is in fair order. NECK: Supple. No JVD. No lymphadenopathy. No thyromegaly. LUNGS: Clear to auscultation. No wheezes or rhonchi. No intercostal retractions. HEART: Regular rate and rhythm. No murmur. ABDOMEN: Soft. Bowel sounds are present. No masses. abdominal binder in place, wound is packed. EXTREMITIES: No pedal edema. No calf tenderness.dorsalis pedis +2 bilaterally. NEUROLOGICAL: Patient is awake, alert and oriented x3. Cranial nerves 2 through 12 are grossly intact. Results Results: Laboratory Results WBC 16.3 k/uL (3.8-10.6) H 11/06/19 05:42 RBC 4.39 m/uL (3.80-5.40) 11/06/19 05:42 Hgb 13.1 gm/dL (11.4-16.0) 11/06/19 05:42 Hct 40.4 % (34.0-46.0) 11/06/19 05:42 MCV 92.1 fL (80.0-100.0) 11/06/19 05:42 MCH 29.8 pg (25.0-35.0) 11/06/19 05:42 MCHC 32.3 g/dL (31.0-37.0) 11/06/19 05:42 RDW 14.2 % (11.5-15.5) 11/06/19 05:42 Plt Count 284 k/uL (150-450) 11/06/19 05:42 Neutrophils % 81 % 11/06/19 05:42 Lymphocytes % 12 % 11/06/19 05:42 Monocytes % 4 % 11/06/19 05:42 Eosinophils % 1 % 11/06/19 05:42 Basophils % 0 % 11/06/19 05:42 Neutrophils # 13.2 k/uL (1.3-7.7) H 11/06/19 05:42 Lymphocytes # 2.0 k/uL (1.0-4.8) 11/06/19 05:42 Monocytes # 0.7 k/uL (0-1.0) 11/06/19 05:42 Eosinophils # 0.2 k/uL (0-0.7) 11/06/19 05:42 Basophils # 0.0 k/uL (0-0.2) 11/06/19 05:42 Sodium 136 mmol/L (137-145) L 11/06/19 05:42 Potassium 4.4 mmol/L (3.5-5.1) 11/06/19 05:42 Chloride 102 mmol/L (98-107) 11/06/19 05:42 Carbon Dioxide 22 mmol/L (22-30) 11/06/19 05:42 Anion Gap 12 mmol/L 11/06/19 05:42 BUN 18 mg/dL (7-17) H 11/06/19 05:42 Creatinine 0.61 mg/dL (0.52-1.04) 11/06/19 05:42 Est GFR (CKD-EPI)AfAm >90 (>60 ml/min/1.73 sqM) 11/06/19 05:42 Est GFR (CKD-EPI)NonAf >90 (>60 ml/min/1.73 sqM) 11/06/19 05:42 Glucose 177 mg/dL (74-99) H 11/06/19 05:42 Lactic Ac Sepsis Rflx Y 11/06/19 10:50 Plasma Lactic Acid Leon 2.2 mmol/L (0.7-2.0) H* 11/06/19 10:27 Calcium 9.1 mg/dL (8.4-10.2) 11/06/19 05:42 Total Bilirubin 0.3 mg/dL (0.2-1.3) 11/06/19 05:42 AST 16 U/L (14-36) 11/06/19 05:42 ALT 19 U/L (4-34) 11/06/19 05:42 Alkaline Phosphatase 59 U/L (38-126) 11/06/19 05:42 Total Protein 6.9 g/dL (6.3-8.2) 11/06/19 05:42 Albumin 3.8 g/dL (3.5-5.0) 11/06/19 05:42 Urine Color Yellow 11/04/19 Unknown Urine Appearance Clear (Clear) 11/04/19 Unknown Urine pH 6.5 (5.0-8.0) 11/04/19 Unknown Ur Specific [place] 1.021 (1.001-1.035) 11/04/19 Unknown Urine Protein Trace (Negative) H 11/04/19 Unknown Urine Glucose (UA) Negative (Negative) 11/04/19 Unknown Urine Ketones 1+ (Negative) H 11/04/19 Unknown Urine Blood Negative (Negative) 11/04/19 Unknown Urine Nitrite Negative (Negative) 11/04/19 Unknown Urine Bilirubin Negative (Negative) 11/04/19 Unknown Urine Urobilinogen <2.0 mg/dL (<2.0) 11/04/19 Unknown Ur Leukocyte Esterase Negative (Negative) 11/04/19 Unknown Urine HCG, Qual Not Detected (Not Detectd) 11/04/19 Unknown Valproic Acid 20.8 ug/mL 11/06/19 10:27 CBC & Chem 7: 11/06/19 05:42 11/06/19 05:42 Labs: Abnormal Lab Results - Last 24 Hours (Table) 11/05/19 11/05/19 11/06/19 Range/Units 17:22 21:14 01:00 WBC (3.8-10.6) k/uL Neutrophils # (1.3-7.7) k/uL Sodium (137-145) mmol/L BUN (7-17) mg/dL Glucose (74-99) mg/dL Plasma Lactic Acid Leon 3.2 H* 4.4 H* 4.1 H* (0.7-2.0) mmol/L 11/06/19 11/06/19 11/06/19 Range/Units 05:42 05:42 05:42 WBC 16.3 H (3.8-10.6) k/uL Neutrophils # 13.2 H (1.3-7.7) k/uL Sodium 136 L (137-145) mmol/L BUN 18 H (7-17) mg/dL Glucose 177 H (74-99) mg/dL Plasma Lactic Acid Leon 3.3 H* (0.7-2.0) mmol/L 11/06/19 Range/Units 10:27 WBC (3.8-10.6) k/uL Neutrophils # (1.3-7.7) k/uL Sodium (137-145) mmol/L BUN (7-17) mg/dL Glucose (74-99) mg/dL Plasma Lactic Acid Leon 2.2 H* (0.7-2.0) mmol/L Microbiology - Last 24 Hours (Table) 11/05/19 09:21 Blood Culture - Preliminary Blood No Growth after 24 hours 11/05/19 15:02 Gram Stain - Preliminary Abdomen Wound Culture - Preliminary 11/05/19 15:02 Anaerobic Culture - Preliminary Abdomen 11/04/19 20:00 Blood Culture - Preliminary Blood No Growth after 24 hours Assessment and Plan Plan: this is a 44-year-old female presents to hospital with abdominal abscess and infected mesh from incarcerated incisional hernia repairalong with lactic acidosis. the patient is currently on Zosyn and vancomycin. Blood cultures and wound cultures in progress. hemoglobin A1c will be ordered. Patient does not have history of diabetes but initial blood sugar was elevated. She does have history of MRSA in 2012. Further recommendations as patient progresses. The above dictated assessment and findings were discussed with Dr. Peterson. The impression and plan of care have been directed as dictated. Catie Alanis nurse practitioner acting as scribe for Dr. Peterson.
--- NOTE | 2019-11-06 15:45 | P.PN ---
Subjective Progress Note Date: 11/06/19 This is a 44y/o female who is new and not been sen in our practice yet. She had undergone and abdominal hernia repair in March [address] Bentley. She report strectching recently and her umbilical incision tore open and purulent D/C came from the opening. Shehas been admitted for further Tx. She has a h/o seizures ,last 6 m/o ago. She takes Depakote for this. She is asthmatic and smokes. She uses albuterol for this. Today SHe denies any chest pain, pressure, SOB at rest, Nausea or vomiting. 11/06/2019 status post I&D of infected abdominal wall fluid collection with removal of infected subfascial mesh, tolerated procedure well pain controlled. Lactic acid 2.2, WBC 16.3.tolerating regular diet with no nausea vomiting or diarrhea.passing flatus, no bowel movement.maintained on vancomycin and Zosyn as per infectious disease.creatinine 0.61. denies chest pain, palpitations or shortness of breath. Denies lightheadedness, dizziness or focal deficits. Objective - Vital Signs Vital signs: Vital Signs Temp 98.0 F 11/06/19 13:44 Pulse 89 11/06/19 13:44 Resp 15 11/06/19 13:44 BP 119/70 11/06/19 13:44 Pulse Ox 96 11/06/19 13:44 Intake & Output 11/05/19 11/06/19 11/06/19 18:59 06:59 18:59 Intake Total 930 3060 1360 Output Total 325 Balance 930 2735 1360 Intake: IV 750 Intake, IV Titration 900 Amount Sodium Chloride 0.9% 1, 400 000 ml @ 100 mls/hr IV . Q10H MICHA Rx#:[id number] Vancomycin 2,250 mg In 500 Sodium Chloride 0.9% 500 ml 500 ml @ 167 mls/hr IVPB Q8H MICHA Rx#: [id number] Oral 180 2160 1360 Output: Urine 325 Other: Voiding Method Toilet Toilet # Voids 3 1 - Exam - Constitutional General appearance: morbidly obese - EENT Eyes: PERRLA - Neck Neck: no lymphadenopathy, no thyromegaly Thyroid: bilateral: normal size - Respiratory Respiratory: bilateral: diminished - Cardiovascular Rhythm: regular Heart sounds: normal: S1, S2 Abnormal Heart Sounds: no systolic murmur - Gastrointestinal General gastrointestinal: normal bowel sounds Localized gastrointestinal: tender: epigastric periumbilical,status post I&D with packing/dressing) - Integumentary Integumentary: no calor - Neurologic Neurologic: CNII-XII intact - Musculoskeletal Musculoskeletal: gait normal - Psychiatric Psychiatric: A&O x's 3 Microbiology 11/05/19 09:21 Blood Blood Culture - Preliminary No Growth after 24 hours 11/05/19 15:02 Abdomen Gram Stain - Preliminary 11/05/19 15:02 Abdomen Wound Culture - Preliminary 11/05/19 15:02 Abdomen Anaerobic Culture - Preliminary 11/04/19 20:00 Blood Blood Culture - Preliminary No Growth after 24 hours 11/04/19 19:15 Abdomen Gram Stain - Preliminary 11/04/19 19:15 Abdomen Wound Culture - Preliminary - Labs CBC & Chem 7: 11/06/19 05:42 11/06/19 05:42 Labs: Abnormal Lab Results - Last 24 Hours (Table) 11/05/19 11/05/19 11/06/19 Range/Units 17:22 21:14 01:00 WBC (3.8-10.6) k/uL Neutrophils # (1.3-7.7) k/uL Sodium (137-145) mmol/L BUN (7-17) mg/dL Glucose (74-99) mg/dL Plasma Lactic Acid Leon 3.2 H* 4.4 H* 4.1 H* (0.7-2.0) mmol/L 11/06/19 11/06/19 11/06/19 Range/Units 05:42 05:42 05:42 WBC 16.3 H (3.8-10.6) k/uL Neutrophils # 13.2 H (1.3-7.7) k/uL Sodium 136 L (137-145) mmol/L BUN 18 H (7-17) mg/dL Glucose 177 H (74-99) mg/dL Plasma Lactic Acid Leon 3.3 H* (0.7-2.0) mmol/L 11/06/19 11/06/19 Range/Units 10:27 14:24 WBC (3.8-10.6) k/uL Neutrophils # (1.3-7.7) k/uL Sodium (137-145) mmol/L BUN (7-17) mg/dL Glucose (74-99) mg/dL Plasma Lactic Acid Leon 2.2 H* 3.5 H* (0.7-2.0) mmol/L Microbiology - Last 24 Hours (Table) 11/05/19 09:21 Blood Culture - Preliminary Blood No Growth after 24 hours 11/05/19 15:02 Gram Stain - Preliminary Abdomen Wound Culture - Preliminary 11/05/19 15:02 Anaerobic Culture - Preliminary Abdomen 11/04/19 20:00 Blood Culture - Preliminary Blood No Growth after 24 hours Assessment and Plan Assessment: (1) Seizure disorder Current Visit: Yes Status: Acute Code(s): G40.909 - EPILEPSY, UNSP, NOT INTRACTABLE, WITHOUT STATUS EPILEPTICUS SNOMED Code(s): 862260465 (2) Tobacco abuse Current Visit: Yes Status: Acute Code(s): Z72.0 - TOBACCO USE SNOMED Code(s): 598361455 (3) Asthma Current Visit: Yes Status: Acute Code(s): J45.909 - UNSPECIFIED ASTHMA, UNCOMPLICATED SNOMED Code(s): 868656436 (4) Chronic, continuous use of opioids Current Visit: Yes Status: Acute Code(s): F11.90 - OPIOID USE, UNSPECIFIED, UNCOMPLICATED SNOMED Code(s): 216062831 (5) Essential (primary) hypertension Current Visit: Yes Status: Acute Code(s): I10 - ESSENTIAL (PRIMARY) HYPERTENSION SNOMED Code(s): 22038098 (6) Cellulitis of periumbilical region,status post I&D with removal of subfasc ial mesh Current Visit: Yes Status: Acute Code(s): L03.319 - CELLULITIS OF TRUNK, UNSPECIFIED SNOMED Code(s): 92135992 (7) External incisional dehiscence Current Visit: Yes Status: Acute Code(s): T81.31XA - DISRUPTION OF EXTERNAL OPERATION (SURGICAL) WOUND, NEC, INIT SNOMED Code(s): 361777488292495 (8) Morbid obesity with BMI of 60.0-69.9, adult Current Visit: No Status: Acute Code(s): E66.01 - MORBID (SEVERE) OBESITY DUE TO EXCESS CALORIES; Z68.44 - BODY MASS INDEX (BMI) 60.0-69.9, ADULT SNOMED Code(s): 781641062 (9) history of MRSA plan: Continue current medication regime ,monitoring and symptomatic treatment. Maintain IV fluids. wound cultures pending.antibiotics as per ID. close monitoring of renal function, electrolytes with repeat labs ordered for a.m.patient states surgery mentioned potential wound VAC. Pain management. Depakote level and hemoglobin A1c ordered, pending. Increase ambulation/activity as tolerated. Aggressive pulmonary toileting with incentive spirometer and reinforced.patient is homeless. The impression and plan of care has been dictated as directed. : I performed a history and examination of this patient, discussed the same with the dictator. I agree with the dictator's note ,documented as a scribe. Any additional findings or plans will be noted.
--- NOTE | 2019-11-06 16:02 | P.CON ---
Consult Note - . Consult date: 11/06/19 Assessment/Plan:: This is a 44-year-old morbidly obese female with history of incarcerated incisional hernia repair with mesh done on 05/22/[address] Bentley. For the past month patient has had intermittent tightness and pulling at the umbilicus. About one week ago she started having drainage from the wound area along with discomfort and pain and possibly some intermittent fevers. She states it was yellow in color. She has been recently on oral amoxicillin for a tooth infection. Patient came into [facility] emergency center for evaluation on November 04 and she was found to be afebrile, WBC initially 12.0 now at 16, lactic acid has been consistently elevated during her stay. Albumin 3.8, BUN 18 creatinine 0.61. Blood culture 2 are showing no growth at 24 hours. Wound cultures in progress. Yesterday, patient underwent I&D of infected abdominal wall fluid collection with infected subfascial mesh. Mesh was also removed. Patient states her abdomen is still sore. She relates that a wound VAC is planned. Discussed discharge planning the patient states that she is essentially homeless. She did tell protective services case worker that she is living with her cousin and plans to return there at the time of discharge. Patient relates to me that she has just been bouncing from place to place and is interested in having subacute rehab. Patient is currently on Zosyn and vancomycin.she states she has not had a bowel movement since procedure but is passing gas.please see the consult dictated by nurse practitioner Mrs. Catie Alanis. Sexual superobesity her BMI is 63. It had difficulty with herniated abdominal wall as he had mesh placed into occasions. The mesh became infected mesh into the operating room and the meshes been removed. She has a history of tobacco or alcohol infection the past including MRSA. At the time of the consult vancomycin therapy was added to the Zosyn that was are being utilized. At this time cultures are pending which will help us determine our antibiotic therapy. If MRSA is isolated the plan will be for intravenous antibiotic therapy with vancomycin likely over 4-6 weeks to try to resolve this very complex infection. It does appear that the majority of the mesh has been removed. nce the infection is improving over the be a candidate for negative pressure therapy is to be evaluated over the next couple of days. If possible in the wound VAC will be added. It does appear that she was going to subacute rehab after her discharge to receive wound care antibiotics and improvement of her overall status. Patient with elevated lactic acid and at this point in time it may be related to her superobesity. I encouraged evaluation, assessment and plan as dictated by nurse practitioner Mrs. Catie Alanis.
[2019-11-06] MEDS: KETOROLAC 30 MG/ML 1 ML VIAL IVP SCH (18:19)
[2019-11-07] MEDS: MORPHINE SULFATE 4 MG/ML SYRINGE IV PRN ×4 (01:00→19:37)
[2019-11-07] MEDS: PIPERACILLIN-TAZOBACTAM 3.375 GM in SODIUM CHLORIDE 0.9% 100 ML IVPB SCH ×4 (01:16→20:38)
[2019-11-07] MEDS: SODIUM CHLORIDE 0.9% 1,000 ML IV SCH ×3 (01:22→17:25)
[2019-11-07] MEDS: HEPARIN SODIUM,PORCINE 5,000 UNIT/ML 1 ML VIAL SQ SCH ×4 (01:24→23:20)
[2019-11-07] MEDS: KETOROLAC 30 MG/ML 1 ML VIAL IVP SCH ×5 (01:28→23:19)
[2019-11-07] MEDS: VANCOMYCIN 2,250 MG in SODIUM CHLORIDE 0.9% 500 ML 500 ML IVPB SCH ×3 (02:52→23:37)
[2019-11-07 03:25] LABS: Basophils # (A) 0.1 k/uL (0-0.2); Basophils % (A) 1 %; Eosinophils # (A) 0.1 k/uL (0-0.7); Eosinophils % (A) 1 %; HCT 40.2 % (34.0-46.0); Lymphocytes # (A) 3.6 k/uL (1.0-4.8); Lymphocytes % (A) 31 %; MCHC 32.4 g/dL (31.0-37.0); MCV 92.6 fL (80.0-100.0); Mean Platelet Volume 7.5; Monocytes # (A) 0.7 k/uL (0-1.0); Monocytes % (A) 6 %; Neutrophils # (A) 6.9 k/uL (1.3-7.7); Neutrophils % (A) 60 %; Platelet Count 275 k/uL (150-450); RBC 4.34 m/uL (3.80-5.40); RDW 14.2 % (11.5-15.5); WBC 11.6 k/uL (3.8-10.6)
[2019-11-07 03:43] LABS: African American GFR (CKD) >90 (>60 ml/min/1.73 sqM); Blood Urea Nitrogen 24 mg/dL (7-17); Calcium 8.7 mg/dL (8.4-10.2); Carbon Dioxide 25 mmol/L (22-30); Glucose 184 mg/dL (74-99); Non-African American GFR(CKD) >90 (>60 ml/min/1.73 sqM)
[2019-11-07 04:43] LABS: Anion Gap 7 mmol/L; Chloride 102 mmol/L (98-107); Potassium 4.2 mmol/L (3.5-5.1); Sodium 134 mmol/L (137-145)
[2019-11-07] MEDS: FLUNISOLIDE INHALATION SCH ×2 (06:56→20:41)
[2019-11-07] MEDS: NICOTINE 21MG/24HR PATCH TRANSDERM SCH (08:20)
[2019-11-07] MEDS: DIVALPROEX ER 500 MG TAB.ER.24H PO SCH ×3 (08:20→20:38)
[2019-11-07] MEDS: HYDROCHLOROTHIAZIDE 25 MG TAB PO SCH (08:20)
[2019-11-07] MEDS: VENLAFAXINE HCL ER 150 MG CAP PO SCH (08:20)
[2019-11-07] MEDS: OXYBUTYNIN CHLORIDE 5 MG TAB PO SCH ×2 (08:20→20:38)
[2019-11-07] MEDS ORDERED: VANCOMYCIN TROUGH DUE 1 EACH MISC MISCELLANE ONE ×2 (09:00→19:00)
--- NOTE | 2019-11-07 10:27 | P.PN ---
Subjective Progress Note Date: 11/07/19 Principal diagnosis: Infected abdominal mesh Patient says her pain is gradually improving. White blood cell count 11.6. Lactic acid still remains slightly elevated. She is ambulating. She was seen by infectious disease yesterday. Cultures pending. Objective - Vital Signs Vital signs: Vital Signs Temp 98 F 11/07/19 07:00 Pulse 78 11/07/19 07:00 Resp 18 11/07/19 07:00 BP 133/80 11/07/19 07:00 Pulse Ox 95 11/07/19 07:00 Intake & Output 11/06/19 11/07/19 11/07/19 18:59 06:59 18:59 Intake Total 1940 40 296 Balance 1940 40 296 Intake: Oral 1939 40 296 Other: Voiding Method Toilet Toilet Toilet # Voids 1 - Exam Abdomen: Soft, nondistended, wound with serosanguineous drainage, no dehiscence noted - Labs CBC & Chem 7: 11/07/19 03:02 11/07/19 03:02 Labs: Abnormal Lab Results - Last 24 Hours (Table) 11/06/19 11/06/19 11/06/19 Range/Units 05:42 10:27 14:24 WBC (3.8-10.6) k/uL Sodium (137-145) mmol/L BUN (7-17) mg/dL Glucose (74-99) mg/dL Hemoglobin A1c 8.0 H (4.0-6.0) % Plasma Lactic Acid Leon 2.2 H* 3.5 H* (0.7-2.0) mmol/L Vancomycin Trough ug/mL 11/06/19 11/06/19 11/07/19 Range/Units 19:00 22:34 03:02 WBC (3.8-10.6) k/uL Sodium 134 L (137-145) mmol/L BUN 24 H (7-17) mg/dL Glucose 184 H (74-99) mg/dL Hemoglobin A1c (4.0-6.0) % Plasma Lactic Acid Leon 3.4 H* 3.1 H* (0.7-2.0) mmol/L Vancomycin Trough ug/mL 11/07/19 11/07/19 11/07/19 Range/Units 03:02 03:02 06:48 WBC 11.6 H (3.8-10.6) k/uL Sodium (137-145) mmol/L BUN (7-17) mg/dL Glucose (74-99) mg/dL Hemoglobin A1c (4.0-6.0) % Plasma Lactic Acid Leon 3.1 H* (0.7-2.0) mmol/L Vancomycin Trough 38.6 H* ug/mL 11/07/19 Range/Units 06:48 WBC (3.8-10.6) k/uL Sodium (137-145) mmol/L BUN (7-17) mg/dL Glucose (74-99) mg/dL Hemoglobin A1c (4.0-6.0) % Plasma Lactic Acid Leon 2.5 H* (0.7-2.0) mmol/L Vancomycin Trough ug/mL Microbiology - Last 24 Hours (Table) 11/04/19 20:00 Blood Culture - Preliminary Blood No Growth after 48 hours 11/05/19 15:02 Gram Stain - Preliminary Abdomen Wound Culture - Preliminary Presumptive MRSA 11/04/19 19:15 Gram Stain - Final Abdomen Wound Culture - Final 11/05/19 09:21 Blood Culture - Preliminary Blood No Growth after 24 hours Assessment and Plan (1) Infected prosthetic mesh of abdominal wall Narrative/Plan: Patient seems to be doing gradually better. Begin wound VAC therapy. Continue IV antibiotics. Current Visit: Yes Status: Acute Code(s): T85.79XA - INFECT/INFLM REACTION DUE TO OTH INT PROSTH DEV/GRFT, INIT SNOMED Code(s): 575835441
[2019-11-07] MEDS: HYDROcodone/APAP 5-325MG 1 EACH TAB PO PRN (10:36)
[2019-11-07] MEDS: ALBUTEROL NEBULIZED 2.5 MG/3 ML INHALATION SCH ×2 (12:01→20:18)
[2019-11-07] MEDS: FLUTICASONE 44 MCG INHALER INHALATION SCH (12:01)
--- NOTE | 2019-11-07 12:04 | P.PN ---
Progress Note - Text Patient's an [id number] was 5.0 and her Depakote level was found to be 20.8.patient was in the restroom and cannot be examined today. regarding her seizure disorder,Depakote 500 mg ER be increased to 3 times a day for the next several days. Repeat Depakote level in 2 days. regarding her new onset diabetes, She will be started on a Tradjenta 5 mg daily, Accu-Cheks before meals and at bedtime, and NovoLog scale. Presumptive MRSA is in her cultures. She continues on vancomycin and Zosyn. Infectious disease is on board. due to her superobesity and elevated plasma lactic acid, metformin will be deferred until later date, and will consider an [facility] 2 abdomen outpatient basis. She'll continue on her diarrheal for hypertension. she will be reevaluated in the a.m.
[2019-11-07] MEDS: LINAGLIPTIN 5 MG TABLET PO SCH (12:10)
[2019-11-07] MEDS: INSULIN ASPART (NovoLOG) 100 UNIT/ML VIAL SQ SCH ×3 (12:25→20:40)
[2019-11-07 12:31] LABS: Glucose,Whole Blood 115 mg/dL (75-99)
--- NOTE | 2019-11-07 15:47 | P.PN ---
Subjective Progress Note Date: 11/07/19 This is a 44-year-old morbidly obese female with history of incarcerated incisional hernia repair with mesh done on 05/22/[address] Bentley. For the past month patient has had intermittent tightness and pulling at the umbilicus. About one week ago she started having drainage from the wound a jared along with discomfort and pain and possibly some intermittent fevers. She states it was yellow in color. She has been recently on oral amoxicillin for a tooth infection. Patient came into [facility] emergency center for evaluation on November 04 and she was found to be afebrile, WBC initially 12.0 now at 16, lactic acid has been consistently elevated during her stay. Albumin 3.8, BUN 18 creatinine 0.61. Blood culture 2 are showing no growth at 24 hours. Wound cultures in progress. Yesterday, patient underwent I&D of infected abdominal wall fluid collection with infected subfascial mesh. Mesh was also removed. Patient states her abdomen is still sore. She relates that a wound VAC is planned. Discussed discharge planning the patient states that she is [facility] homeless. She did tell classification case manager that she is living with her cousin and plans to return there at the time of discharge. Patient relates to me that she has just been bouncing from place to place and is interested in having subacute rehab. Patient is currently on Zosyn and vancomycin.she states she has not had a bowel movement since procedure but is passing gas. 11/07/2019 patient is improved but is still having ongoing pain stating her pain level is 7 out of 10 at this time. She is not having nausea or emesis. No fevers or chills. Objective - Vital Signs Vital signs: Vital Signs Temp 98.8 F 11/07/19 14:44 Pulse 77 11/07/19 14:44 Resp 18 11/07/19 14:44 BP 146/79 11/07/19 14:44 Pulse Ox 96 11/07/19 14:44 Intake & Output 11/06/19 11/07/19 11/07/19 18:59 06:59 18:59 Intake Total 0 40 592 Balance 1940 40 592 Intake: Oral 1939 40 592 Other: Voiding Method Toilet Toilet Toilet # Voids 1 1 - Exam Gen: This is a super morbid obese 44-year-old female. Patient's resting bed and appears to be comfortable. HEENT: Head is atraumatic, normocephalic. Pupils equal, round. Sclerae is anicteric. oral mucous membranes are moist. No thrush noted. Dentition is in fair order. NECK: Supple. No JVD. No lymphadenopathy. No thyromegaly. LUNGS: Clear to auscultation. No wheezes or rhonchi. No intercostal retractions. HEART: Regular rate and rhythm. No murmur. ABDOMEN: Soft. Bowel sounds are present. No masses. Abdominal ulceration is evaluated. There is evidence of no significant purulence. There is no signif icant bleeding. Drainage is minimal at this time. Please see the nursing photography for its size. EXTREMITIES: No pedal edema. No calf tenderness.dorsalis pedis +2 bilaterally. NEUROLOGICAL: Patient is awake, alert and oriented x3. - Labs CBC & Chem 7: 11/07/19 03:02 11/07/19 03:02 Labs: Abnormal Lab Results - Last 24 Hours (Table) 11/06/19 11/06/19 11/06/19 Range/Units 05:42 19:00 22:34 WBC (3.8-10.6) k/uL Sodium (137-145) mmol/L BUN (7-17) mg/dL Glucose (74-99) mg/dL POC Glucose (mg/dL) (75-99) mg/dL Hemoglobin A1c 8.0 H (4.0-6.0) % Plasma Lactic Acid Leon 3.4 H* 3.1 H* (0.7-2.0) mmol/L Vancomycin Trough ug/mL 11/07/19 11/07/19 11/07/19 Range/Units 03:02 03:02 03:02 WBC 11.6 H (3.8-10.6) k/uL Sodium 134 L (137-145) mmol/L BUN 24 H (7-17) mg/dL Glucose 184 H (74-99) mg/dL POC Glucose (mg/dL) (75-99) mg/dL Hemoglobin A1c (4.0-6.0) % Plasma Lactic Acid Leon 3.1 H* (0.7-2.0) mmol/L Vancomycin Trough ug/mL 11/07/19 11/07/19 11/07/19 Range/Units 06:48 06:48 12:19 WBC (3.8-10.6) k/uL Sodium (137-145) mmol/L BUN (7-17) mg/dL Glucose (74-99) mg/dL POC Glucose (mg/dL) 115 H (75-99) mg/dL Hemoglobin A1c (4.0-6.0) % Plasma Lactic Acid Leon 2.5 H* (0.7-2.0) mmol/L Vancomycin Trough 38.6 H* ug/mL Microbiology - Last 24 Hours (Table) 11/05/19 09:21 Blood Culture - Preliminary Blood No Growth after 48 hours 11/04/19 20:00 Blood Culture - Preliminary Blood No Growth after 48 hours 11/05/19 15:02 Gram Stain - Preliminary Abdomen Wound Culture - Preliminary Presumptive MRSA 11/04/19 19:15 Gram Stain - Final Abdomen Wound Culture - Final Laboratory Results WBC 11.6 k/uL (3.8-10.6) H 11/07/19 03:02 RBC 4.34 m/uL (3.80-5.40) 11/07/19 03:02 Hgb 13.0 gm/dL (11.4-16.0) 11/07/19 03:02 Hct 40.2 % (34.0-46.0) 11/07/19 03:02 MCV 92.6 fL (80.0-100.0) 11/07/19 03:02 MCH 30.0 pg (25.0-35.0) 11/07/19 03:02 MCHC 32.4 g/dL (31.0-37.0) 11/07/19 03:02 RDW 14.2 % (11.5-15.5) 11/07/19 03:02 Plt Count 275 k/uL (150-450) 11/07/19 03:02 Neutrophils % 60 % 11/07/19 03:02 Lymphocytes % 31 % 11/07/19 03:02 Monocytes % 6 % 11/07/19 03:02 Eosinophils % 1 % 11/07/19 03:02 Basophils % 1 % 11/07/19 03:02 Neutrophils # 6.9 k/uL (1.3-7.7) 11/07/19 03:02 Lymphocytes # 3.6 k/uL (1.0-4.8) 11/07/19 03:02 Monocytes # 0.7 k/uL (0-1.0) 11/07/19 03:02 Eosinophils # 0.1 k/uL (0-0.7) 11/07/19 03:02 Basophils # 0.1 k/uL (0-0.2) 11/07/19 03:02 Sodium 134 mmol/L (137-145) L 11/07/19 03:02 Potassium 4.2 mmol/L (3.5-5.1) 11/07/19 03:02 Chloride 102 mmol/L (98-107) 11/07/19 03:02 Carbon Dioxide 25 mmol/L (22-30) 11/07/19 03:02 Anion Gap 7 mmol/L 11/07/19 03:02 BUN 24 mg/dL (7-17) H 11/07/19 03:02 Creatinine 0.79 mg/dL (0.52-1.04) 11/07/19 03:02 Est GFR (CKD-EPI)AfAm >90 (>60 ml/min/1.73 sqM) 11/07/19 03:02 Est GFR (CKD-EPI)NonAf >90 (>60 ml/min/1.73 sqM) 11/07/19 03:02 Glucose 184 mg/dL (74-99) H 11/07/19 03:02 POC Glucose (mg/dL) 115 mg/dL (75-99) H 11/07/19 12:19 POC Glu Ice Maker BIBI Arelis Wasserman 11/07/19 12:[address] Glu mg/dL 183 11/06/19 05:42 Hemoglobin A1c 8.0 % (4.0-6.0) H 11/06/19 05:42 Lactic Ac Sepsis Rflx Y 11/07/19 07:45 Plasma Lactic Acid Leon 2.5 mmol/L (0.7-2.0) H* 11/07/19 06:48 Calcium 8.7 mg/dL (8.4-10.2) 11/07/19 03:02 Total Bilirubin 0.3 mg/dL (0.2-1.3) 11/06/19 05:42 AST 16 U/L (14-36) 11/06/19 05:42 ALT 19 U/L (4-34) 11/06/19 05:42 Alkaline Phosphatase 59 U/L (38-126) 11/06/19 05:42 Total Protein 6.9 g/dL (6.3-8.2) 11/06/19 05:42 Albumin 3.8 g/dL (3.5-5.0) 11/06/19 05:42 Urine Color Yellow 11/04/19 Unknown Urine Appearance Clear (Clear) 11/04/19 Unknown Urine pH 6.5 (5.0-8.0) 11/04/19 Unknown Ur Specific [place] 1.021 (1.001-1.035) 11/04/19 Unknown Urine Protein Trace (Negative) H 11/04/19 Unknown Urine Glucose (UA) Negative (Negative) 11/04/19 Unknown Urine Ketones 1+ (Negative) H 11/04/19 Unknown Urine Blood Negative (Negative) 11/04/19 Unknown Urine Nitrite Negative (Negative) 11/04/19 Unknown Urine Bilirubin Negative (Negative) 11/04/19 Unknown Urine Urobilinogen <2.0 mg/dL (<2.0) 11/04/19 Unknown Ur Leukocyte Esterase Negative (Negative) 11/04/19 Unknown Urine HCG, Qual Not Detected (Not Detectd) 11/04/19 Unknown Vancomycin Trough 38.6 ug/mL H* 11/07/19 06:48 Valproic Acid 20.8 ug/mL 11/06/19 10:27 Microbiology 11/05/19 09:21 Blood Blood Culture - Preliminary No Growth after 48 hours 11/04/19 20:00 Blood Blood Culture - Preliminary No Growth after 48 hours 11/05/19 15:02 Abdomen Gram Stain - Preliminary 11/05/19 15:02 Abdomen Wound Culture - Preliminary Presumptive MRSA 11/04/19 19:15 Abdomen Gram Stain - Final 11/04/19 19:15 Abdomen Wound Culture - Final 11/05/19 15:02 Abdomen Anaerobic Culture - Preliminary Assessment and Plan (1) External incisional dehiscence Current Visit: Yes Status: Acute Code(s): T81.31XA - DISRUPTION OF EXTERNAL OPERATION (SURGICAL) WOUND, NEC, INIT SNOMED Code(s): 880824153647795 (2) Infected prosthetic mesh of abdominal wall Narrative/Plan: 44 -year-old woman with superobesity her BMI is 63. It had difficulty with herniated abdominal wall as he had mesh placed into occasions. The mesh became infected mesh into the operating room and the meshes been removed. She has a history of tobacco or alcohol infection the past including MRSA. At the time of the consult vancomycin therapy was added to the Zosyn that was are being utilized. At this time cultures are pending which will help us determine our antibiotic therapy. If MRSA is isolated the plan will be for intravenous antibiotic therapy with vancomycin likely over 4-6 weeks to try to resolve this very complex infection. It does appear that the majority of the mesh has been removed. nce the infection is improving over the be a candidate for negative pressure therapy is to be evaluated over the next couple of days. If possible in the wound VAC will be added. It does appear that she was going to subacute rehab after her discharge to receive wound care antibiotics and improvement of her overall status. Patient with elevated lactic acid and at this point in time it may be related to her superobesity. As expected the culture is no showing evidence of MRSA at the surgical site. Vancomycin is or even added. We will await final cultures. If MRSA is found appear culture than the other antibiotic therapies may be discontinued. She will need IV access placed to receive her intravenous antibiotic therapy at the extended care facility. We have asked the wound VAC to be applied now that the bleeding is under good control and there is evidence of incomplete improvement of the infection. Current Visit: Yes Status: Acute Code(s): T85.79XA - INFECT/INFLM REACTION DUE TO OTH INT PROSTH DEV/GRFT, INIT SNOMED Code(s): 884697236 (3) Morbid obesity with BMI of 60.0-69.9, adult Current Visit: No Status: Acute Code(s): E66.01 - MORBID (SEVERE) OBESITY DUE TO EXCESS CALORIES; Z68.44 - BODY MASS INDEX (BMI) 60.0-69.9, ADULT SNOMED Code(s): 138717002
[2019-11-07 17:14] LABS: Glucose,Whole Blood 137 mg/dL (75-99)
[2019-11-07 20:54] LABS: Glucose,Whole Blood 142 mg/dL (75-99)
[2019-11-07] MEDS: VANCOMYCIN 1,750 MG in SODIUM CHLORIDE 0.9% 500 ML 500 ML IVPB SCH (23:19)
[2019-11-08] MEDS: MORPHINE SULFATE 4 MG/ML SYRINGE IV PRN ×5 (01:34→21:49)
[2019-11-08] MEDS: PIPERACILLIN-TAZOBACTAM 3.375 GM in SODIUM CHLORIDE 0.9% 100 ML IVPB SCH (05:36)
[2019-11-08] MEDS: VANCOMYCIN 1,750 MG in SODIUM CHLORIDE 0.9% 500 ML 500 ML IVPB SCH ×3 (05:36→21:49)
[2019-11-08] MEDS: KETOROLAC 30 MG/ML 1 ML VIAL IVP SCH ×2 (05:37→11:55)
[2019-11-08] MEDS: SODIUM CHLORIDE 0.9% 1,000 ML IV SCH ×2 (05:39→13:42)
[2019-11-08 07:06] LABS: Basophils # (A) 0.1 k/uL (0-0.2); Basophils % (A) 1 %; Eosinophils # (A) 0.4 k/uL (0-0.7); Eosinophils % (A) 3 %; HCT 38.4 % (34.0-46.0); HGB 12.4 gm/dL (11.4-16.0); Lymphocytes % (A) 30 %; MCH 29.9 pg (25.0-35.0); MCHC 32.2 g/dL (31.0-37.0); MCV 92.8 fL (80.0-100.0); Mean Platelet Volume 7.7; Monocytes # (A) 0.6 k/uL (0-1.0); Monocytes % (A) 6 %; Neutrophils % (A) 59 %; Platelet Count 259 k/uL (150-450); RBC 4.14 m/uL (3.80-5.40); RDW 14.1 % (11.5-15.5); WBC 10.2 k/uL (3.8-10.6)
[2019-11-08 07:20] LABS: Glucose,Whole Blood 121 mg/dL (75-99)
[2019-11-08] MEDS: INSULIN ASPART (NovoLOG) 100 UNIT/ML VIAL SQ SCH ×4 (07:21→21:49)
[2019-11-08 07:23] LABS: African American GFR (CKD) >90 (>60 ml/min/1.73 sqM); Non-African American GFR(CKD) >90 (>60 ml/min/1.73 sqM)
[2019-11-08] MEDS: HEPARIN SODIUM,PORCINE 5,000 UNIT/ML 1 ML VIAL SQ SCH ×2 (08:33→16:46)
[2019-11-08] MEDS: HYDROCHLOROTHIAZIDE 25 MG TAB PO SCH (08:35)
[2019-11-08] MEDS: VENLAFAXINE HCL ER 150 MG CAP PO SCH (08:35)
[2019-11-08] MEDS: LINAGLIPTIN 5 MG TABLET PO SCH (08:36)
[2019-11-08] MEDS: NICOTINE 21MG/24HR PATCH TRANSDERM SCH (08:36)
[2019-11-08] MEDS: OXYBUTYNIN CHLORIDE 5 MG TAB PO SCH ×2 (08:36→21:49)
[2019-11-08] MEDS: DIVALPROEX ER 500 MG TAB.ER.24H PO SCH ×3 (08:36→21:48)
[2019-11-08] MEDS: FLUTICASONE 44 MCG INHALER INHALATION SCH (09:00)
[2019-11-08] MEDS: ALBUTEROL NEBULIZED 2.5 MG/3 ML INHALATION SCH ×2 (09:00→19:53)
[2019-11-08] MEDS: HYDROcodone/APAP 5-325MG 1 EACH TAB PO PRN ×3 (11:03→20:22)
[2019-11-08 11:38] LABS: Glucose,Whole Blood 133 mg/dL (75-99)
--- NOTE | 2019-11-08 11:38 | P.PN ---
Subjective Progress Note Date: 11/08/19 Principal diagnosis: Infected abdominal mesh patient doing well today. Pain is improved. Lactic acid now normal at 1.5. White blood cell count 10.2. Wound VAC was placed yesterday. Objective - Vital Signs Vital signs: Vital Signs Temp 98.1 F 11/08/19 07:02 Pulse 80 11/08/19 09:12 Resp 16 11/08/19 07:02 BP 135/72 11/08/19 07:02 Pulse Ox 96 11/08/19 07:02 Intake & Output 11/07/19 11/08/19 11/08/19 18:59 06:59 18:59 Intake Total 828 Balance 828 Intake: Oral 828 Other: Voiding Method Toilet Toilet Toilet # Voids 1 1 1 - Exam abdomen: Soft, nondistended, mild tenderness, wound VAC in place - Labs CBC & Chem 7: 11/08/19 06:42 11/08/19 06:42 Labs: Abnormal Lab Results - Last 24 Hours (Table) 11/07/19 11/07/19 11/07/19 Range/Units : 16:59 20:38 POC Glucose (mg/dL) 115 H 137 H 142 H (75-99) mg/dL 11/08/19 Range/Units 07:00 POC Glucose (mg/dL) 121 H (75-99) mg/dL Microbiology - Last 24 Hours (Table) 11/05/19 15:02 Anaerobic Culture - Preliminary Abdomen 11/04/19 20:00 Blood Culture - Preliminary Blood No Growth after 72 hours 11/05/19 15:02 Gram Stain - Final Abdomen Wound Culture - Final Methicillin resist S. aureus 11/05/19 09:21 Blood Culture - Preliminary Blood No Growth after 48 hours Assessment and Plan (1) Infected prosthetic mesh of abdominal wall Narrative/Plan: patient doing well. Continue antibiotics. Continue wound VAC. Probable discharge tomorrow. Current Visit: Yes Status: Acute Code(s): T85.79XA - INFECT/INFLM REACTION DUE TO OTH INT PROSTH DEV/GRFT, INIT SNOMED Code(s): 039037798
--- NOTE | 2019-11-08 11:45 | P.PN ---
Subjective This is a 44y/o female who is new and not been sen in our practice yet. She had undergone and abdominal hernia repair in March [address] Bentley. She report strectching recently and her umbilical incision tore open and purulent D/C came from the opening. Shehas been admitted for further Tx. She has a h/o seizures ,last 6 m/o ago. She takes Depakote for this. She is asthmatic and smokes. She uses albuterol for this. Today SHe denies any chest pain, pressure, SOB at rest, Nausea or vomiting. 11/06/2019 status post I&D of infected abdominal wall fluid collection with removal of infected subfascial mesh, tolerated procedure well pain controlled. Lactic acid 2.2, WBC 16.3.tolerating regular diet with no nausea vomiting or diarrhea.passing flatus, no bowel movement.maintained on vancomycin and Zosyn as per infectious disease.creatinine 0.61. denies chest pain, palpitations or shortness of breath. Denies lightheadedness, dizziness or focal deficits. 11/07/2019:Patient's [id number] was 8.0 and her Depakote level was found to be 20.8.patient was in the restroom and cannot be examined today. regarding her seizure disorder,Depakote 500 mg ER be increased to 3 times a day for the next several days. Repeat Depakote level in 2 days. regarding her new onset diabetes, She will be started on a Tradjenta 5 mg daily, Accu-Cheks before meals and at bedtime, and NovoLog scale. Presumptive MRSA is in her cultures. She continues on vancomycin and Zosyn. Infectious disease is on board. due to her superobesity and elevated plasma lactic acid, metformin will be deferred until later date, and will consider an [facility] 2 abdomen outpatient basis. She'll continue on her diarrheal for hypertension. she will be reevaluated in the a.m. 11/08/2019: Patient was started on Tradjenta and Accu-Cheks along with NovoLog scale for her new onset diabetes. her Depakote was increased to 500 mg 3 times a day, as it was not therapeutic. She has not had a seizure in 6 months. She feels okay today. We discussed diabetes and diabetic education. Her cultures have confirmed MRSA. It does not appear to be susceptible to Zosyn. Today, she denies any chest pains, pressures, shortness breath. She has her wound VAC in place. She is complaining of obstipation 5 days Objective - Vital Signs Vital signs: Vital Signs Temp 98.1 F 11/08/19 07:02 Pulse 80 11/08/19 09:12 Resp 16 11/08/19 07:02 BP 135/72 11/08/19 07:02 Pulse Ox 96 11/08/19 07:02 Intake & Output 11/07/19 11/08/19 11/08/19 18:59 06:59 18:59 Intake Total 828 Balance 828 Intake: Oral 828 Other: Voiding Method Toilet Toilet Toilet # Voids 1 1 1 - Exam General: The patient is awake and alert, in no distress, and does not appear acutely ill. she is morbidly obese Neck: The neck is supple, there is no thyromegaly, lymphadenopathy, tenderness or JVD. Cardiovascular: S1S2 is normal, There is a regular rate and rhythm. No murmur, rub or gallop is appreciated. Respiratory: Lungs are somewhat coarse to auscultation bilaterally, respirations are non-labored, breath sounds are equal. Gastrointestinal: Soft, distended due to truncal obesity,, non-tender abdomen without masses or organomegaly noted. There is no rebound or guarding present. Bowel sounds are unremarkable.wound VAC is in place Musculoskeletal: Normal ROM, no tenderness, There is no pedal edema. There is no calf tenderness or swelling. No cords were appreciated. Neurological: CN II-XII intact, there are no obvious motor or sensory deficits. Coordination appears grossly intact. Speech is normal. Skin: Skin is warm and dry and no rashes or lesions are noted. - Labs CBC & Chem 7: 11/08/19 06:42 11/08/19 06:42 Labs: Abnormal Lab Results - Last 24 Hours (Table) 11/07/19 11/07/19 11/07/19 Range/Units :19 16:59 20:38 POC Glucose (mg/dL) 115 H 137 H 142 H (75-99) mg/dL 11/08/19 11/08/19 Range/Units 07:00 11:21 POC Glucose (mg/dL) 121 H 133 H (75-99) mg/dL Microbiology - Last 24 Hours (Table) 11/05/19 15:02 Anaerobic Culture - Preliminary Abdomen 11/04/19 20:00 Blood Culture - Preliminary Blood No Growth after 72 hours 11/05/19 15:02 Gram Stain - Final Abdomen Wound Culture - Final Methicillin resist S. aureus 11/05/19 09:21 Blood Culture - Preliminary Blood No Growth after 48 hours Assessment and Plan (1) Seizure disorder Current Visit: Yes Status: Acute Code(s): G40.909 - EPILEPSY, UNSP, NOT INTRACTABLE, WITHOUT STATUS EPILEPTICUS SNOMED Code(s): 633141903 (2) Tobacco abuse Current Visit: Yes Status: Acute Code(s): Z72.0 - TOBACCO USE SNOMED Code(s): 390939389 (3) Asthma Current Visit: Yes Status: Acute Code(s): J45.909 - UNSPECIFIED ASTHMA, UNCOMPLICATED SNOMED Code(s): 418476408 (4) Chronic, continuous use of opioids Current Visit: Yes Status: Acute Code(s): F11.90 - OPIOID USE, UNSPECIFIED, UNCOMPLICATED SNOMED Code(s): 167661132 (5) Essential (primary) hypertension Current Visit: Yes Status: Acute Code(s): I10 - ESSENTIAL (PRIMARY) HY PERTENSION SNOMED Code(s): 06766609 (6) Cellulitis of periumbilical region Current Visit: Yes Status: Acute Code(s): L03.319 - CELLULITIS OF TRUNK, UNSPECIFIED SNOMED Code(s): 50321364 (7) External incisional dehiscence Current Visit: Yes Status: Acute Code(s): T81.31XA - DISRUPTION OF EXTERNAL OPERATION (SURGICAL) WOUND, NEC, INIT SNOMED Code(s): 170335291928164 (8) Morbid obesity with BMI of 60.0-69.9, adult Current Visit: No Status: Acute Code(s): E66.01 - MORBID (SEVERE) OBESITY DUE TO EXCESS CALORIES; Z68.44 - BODY MASS INDEX (BMI) 60.0-69.9, ADULT SNOMED Code(s): 022535356 (9) Type 2 diabetes mellitus with hyperglycemia Current Visit: Yes Status: Acute Code(s): E11.65 - TYPE 2 DIABETES MELLITUS WITH HYPERGLYCEMIA SNOMED Code(s): 697602683609576 Plan: she will continue on her vancomycin for infection, we will continue Chris 10- 5 mg daily for diabetes along with NovoLog scale. Plan adding SLGT2 and metformin outpatient and possible GLP-1 to help with weight loss. recheck Depakote level tomorrow, continue 3 times a day dosing of this time. discontinued Zosyn if okay with infectious disease Continue vancomycin per infectious disease. diabetic education, glucometer testing supplies She'll be re-eval in next 24 hours
[2019-11-08] MEDS ORDERED: VANCOMYCIN IV PER PHARMACY 1 EACH MISC MISCELLANE PRN (13:07)
[2019-11-08] MEDS: BISACODYL 10 MG SUPP RECTAL STA ×2 (13:38→22:11)
[2019-11-08] MEDS: metFORMIN 500 MG TAB PO SCH (16:46)
[2019-11-08 17:11] LABS: Glucose,Whole Blood 140 mg/dL (75-99)
[2019-11-08 20:45] LABS: Glucose,Whole Blood 139 mg/dL (75-99)
[2019-11-08] MEDS: FLUNISOLIDE INHALATION SCH (22:11)
[2019-11-09] MEDS: HYDROcodone/APAP 5-325MG 1 EACH TAB PO PRN ×4 (00:42→13:06)
[2019-11-09] MEDS: HEPARIN SODIUM,PORCINE 5,000 UNIT/ML 1 ML VIAL SQ SCH ×3 (00:43→16:30)
[2019-11-09] MEDS: ACETAMINOPHEN TAB 325 MG TAB PO PRN (02:23)
[2019-11-09] MEDS: MORPHINE SULFATE 4 MG/ML SYRINGE IV PRN (02:25)
[2019-11-09] MEDS: VANCOMYCIN 1,750 MG in SODIUM CHLORIDE 0.9% 500 ML 500 ML IVPB SCH ×2 (05:07→13:06)
[2019-11-09] MEDS: SODIUM CHLORIDE 0.9% 1,000 ML IV SCH ×3 (05:08→21:31)
[2019-11-09 06:48] LABS: Glucose,Whole Blood 112 mg/dL (75-99)
[2019-11-09] MEDS: INSULIN ASPART (NovoLOG) 100 UNIT/ML VIAL SQ SCH ×4 (07:33→21:25)
[2019-11-09] MEDS: ALBUTEROL NEBULIZED 2.5 MG/3 ML INHALATION SCH ×2 (08:20→19:46)
[2019-11-09] MEDS: FLUTICASONE 44 MCG INHALER INHALATION SCH (08:21)
[2019-11-09] MEDS: HYDROCHLOROTHIAZIDE 25 MG TAB PO SCH (09:04)
[2019-11-09] MEDS: DIVALPROEX ER 500 MG TAB.ER.24H PO SCH ×3 (09:04→21:31)
[2019-11-09] MEDS: metFORMIN 500 MG TAB PO SCH ×2 (09:04→17:16)
[2019-11-09] MEDS: OXYBUTYNIN CHLORIDE 5 MG TAB PO SCH ×2 (09:04→21:31)
[2019-11-09] MEDS: LINAGLIPTIN 5 MG TABLET PO SCH (09:04)
[2019-11-09] MEDS: VENLAFAXINE HCL ER 150 MG CAP PO SCH (09:04)
[2019-11-09] MEDS: NICOTINE 21MG/24HR PATCH TRANSDERM SCH (09:05)
[2019-11-09 09:40] LABS: African American GFR (CKD) >90 (>60 ml/min/1.73 sqM); Anion Gap 8 mmol/L; Blood Urea Nitrogen 16 mg/dL (7-17); Calcium 9.1 mg/dL (8.4-10.2); Carbon Dioxide 23 mmol/L (22-30); Chloride 105 mmol/L (98-107); Glucose 114 mg/dL (74-99); Non-African American GFR(CKD) >90 (>60 ml/min/1.73 sqM); Potassium 4.6 mmol/L (3.5-5.1); Sodium 136 mmol/L (137-145)
[2019-11-09 09:45] LABS: Valproic Acid (Depakene) 43.5 ug/mL
--- NOTE | 2019-11-09 11:16 | IR ---
EXAMINATION TYPE: IR cvc insert >=5 years DATE OF EXAM: 11/09/2019 COMPARISON: NONE CLINICAL HISTORY: Infection Needs long-term intravenous access for antibiotics. PROCEDURE: After informed consent, the skin overlying the left cephalic vein was localized with ultrasound and n oted to be compressible and patent. An ultrasound image was obtained and submitted on the patient's chart. The overlying skin was prepped and draped and Lidocaine was used for local anesthesia. A ski n rubi was made with a scalpel. Access was gained to the vein under ultrasound guidance with a 21 ga uge needle and a 0.018 inch wire was advanced. Access site was dilated with Peel-Away sheath and cat heter tailored to the appropriate length and advanced such that the distal tip is at the cavoatrial j unction. Spot image was obtained verifying placement. Catheter was fixed to the skin and a sterile dressing was placed following hemostasis. Catheter was aspirated and flushed with saline. Patient w as discharged in stable condition without complication.Maximal barrier technique is utilized. Ultras ound image is documented on the chart. Ultrasound used with sterile technique. Fluoro time and fluoroscopic images submitted to document procedure: IMPRESSION: STATUS POST ULTRASOUND AND FLUOROSCOPIC GUIDED PICC LINE PLACEMENT, READY FOR USE. THIS PROCEDURE WAS PERFORMED BY THE UNDERSIGNED. 1.6 minutes fluoroscopy time supplied to the referring clinician. 325 intraoperative C-arm images do cument the procedure..
--- NOTE | 2019-11-09 11:36 | P.DS ---
<MuñozAngie Kvng - Last Filed: 11/09/19 11:33> Providers Expected date of discharge: 11/09/19 Hospital Course: 44-year-old female who underwent repair of incarcerated incisional hernia with mesh on 05/22/[address] Bentley. Patient states she has been doing well postoperatively. For the past month, she reports intermittent tightness and pulling near the umbilicus. She states about a week ago, she was attempting to get into a bed that was pretty high off the ground for the patient. She states the next morning, she woke up and noticed drainage on her abdomen from coming from her previous incision. She states the drainage was purulent and malodorous. She reports having a dental procedure earlier this week and was placed on antibiotics. She states the drainage has become more clear yellow and no longer has a foul odor. Patient underwent incision and drainage of abdominal wall fluid collection removal subcufascial mesh and fascial closure with Dr. Bentley on 11/05/2019. Infectious disease was consulted to evaluate patient during hospitalization. She currently has a wound VAC to her abdominal wound. Cultures are positive for MRSA. Patient received a PICC line today for IV antibiotics. She is stable for DC to ECF today pending insurance authorization. Please see EMR for further hospital course details. Discharge Diagnosis: 1. Abdominal wall abscess 2. History of incarcerated incisional hernia with mesh on 05/22/2019 3. Previous hernia repair with postoperative infection, + MRSA Nurse practitioner note has been reviewed by physician. Signing provider agrees with the documented findings, assessment, and plan of care. Patient Condition at Discharge: Stable Plan - Discharge Summary Discharge Rx Participant: No New Discharge Prescriptions: New Ipratropium-Albuterol Nebulize [Duoneb 0.5 mg-3 mg/3 ml Soln] 3 ml INHALATION QID #120 neb metFORMIN HCL [Glucophage] 500 mg PO BID-W/MEALS tab Linagliptin [Tradjenta] 5 mg PO DAILY tablet INSULIN LISPRO (HumaLOG) [humaLOG] 0 unit SQ ACHS #1 vial Continue Oxybutynin Chloride 5 mg PO BID Beclomethasone Dipropionate [Qvar 40 mcg Redihaler] 1 puff INHALATION RT- DAILY Hydrochlorothiazide [Hydrodiuril] 25 mg PO DAILY Nicotine 21Mg/24Hr Patch [Habitrol] 1 patch TRANSDERM DAILY Flunisolide [Aerospan] 1 puff INHALATION RT-HS Divalproex Sodium [Divalproex Sodium ER] 500 mg PO BID Venlafaxine HCl ER [Effexor XR] 150 mg PO DAILY oxyCODONE HCL/ACETAMINOPHEN [Percocet 10-325 mg] 1 tab PO QID #12 tab Discharge Medication List Beclomethasone Dipropionate [Qvar 40 mcg Redihaler] 1 puff INHALATION RT-DAILY 05/18/19 [History] Hydrochlorothiazide [Hydrodiuril] 25 mg PO DAILY 05/18/19 [History] Oxybutynin Chloride 5 mg PO BID 05/18/19 [History] Divalproex Sodium [Divalproex Sodium ER] 500 mg PO BID 11/04/19 [History] Flunisolide [Aerospan] 1 puff INHALATION RT-HS 11/04/19 [History] Nicotine 21Mg/24Hr Patch [Habitrol] 1 patch TRANSDERM DAILY 11/04/19 [History] Venlafaxine HCl ER [Effexor XR] 150 mg PO DAILY 11/04/19 [History] INSULIN LISPRO (HumaLOG) [humaLOG] 0 unit SQ ACHS #1 vial 11/09/19 [Rx] Ipratropium-Albuterol Nebulize [Duoneb 0.5 mg-3 mg/3 ml Soln] 3 ml INHALATION QID #120 neb 11/09/19 [Rx] Linagliptin [Tradjenta] 5 mg PO DAILY tablet 11/09/19 [Rx] metFORMIN HCL [Glucophage] 500 mg PO BID-W/MEALS tab 11/09/19 [Rx] oxyCODONE HCL/ACETAMINOPHEN [Percocet 10-325 mg] 1 tab PO QID #12 tab 11/09/19 [Rx] Follow up Appointment(s)/Referral(s): Aristeo Bentley MD [Medical Doctor] - 11/16/19 2:20 pm [facility] [NON-STAFF] - As Needed Kingston Huynh MD [STAFF PHYSICIAN] - 3 Days Activity/Diet/Wound Care/Special Instructions: diet: Consistent carb CBC, BMP in 3 days <Aristeo Bentlye - Last Filed: 11/09/19 12:46> Providers Date of admission: 11/04/19 22:16 Attending physician: Aristeo Bentley Consults: 11/04/19 22:06 Consult Physician Routine Consulting Provider: Carlos Willson Jr Consult Reason/Comments: Medical management Do you want consulting provider notified?: Yes 11/05/19 15:31 Consult Physician Routine Consulting Provider: Jimmy Peterson Consult Reason/Comments: Infected prosthetic mesh Do you want consulting provider notified?: Yes, Notify in am Primary care physician: Carlos Willson - Discharge Diagnosis(es) (1) Infected prosthetic mesh of abdominal wall Current Visit: Yes Status: Acute Hospital Course: as above. Patient doing well. Patient apparently takes Percocet at home. Will resume Percocet while she is here. Possible discharge to ECF later today.
[2019-11-09 11:39] LABS: Glucose,Whole Blood 115 mg/dL (75-99)
--- NOTE | 2019-11-09 11:57 | P.PN ---
Subjective Progress Note Date: 11/09/19 This is a 44y/o female who is new and not been sen in our practice yet. She had undergone and abdominal hernia repair in March [address] Bentley. She report strectching recently and her umbilical incision tore open and purulent D/C came from the opening. Shehas been admitted for further Tx. She has a h/o seizures ,last 6 m/o ago. She takes Depakote for this. She is asthmatic and smokes. She uses albuterol for this. Today SHe denies any chest pain, pressure, SOB at rest, Nausea or vomiting. 11/06/2019 status post I&D of infected abdominal wall fluid collection with removal of infected subfascial mesh, tolerated procedure well pain controlled. Lactic acid 2.2, WBC 16.3.tolerating regular diet with no nausea vomiting or diarrhea.passing flatus, no bowel movement.maintained on vancomycin and Zosyn as per infectious disease.creatinine 0.61. denies chest pain, palpitations or shortness of breath. Denies lightheadedness, dizziness or focal deficits. 11/07/2019:Patient's [id number] was 8.0 and her Depakote level was found to be 20.8.patient was in the restroom and cannot be examined today. regarding her seizure disorder,Depakote 500 mg ER be increased to 3 times a day for the next several days. Repeat Depakote level in 2 days. regarding her new onset diabetes, She will be started on a Tradjenta 5 mg daily, Accu-Cheks before meals and at bedtime, and NovoLog scale. Presumptive MRSA is in her cultures. She continues on vancomycin and Zosyn. Infectious disease is on board. due to her superobesity and elevated plasma lactic acid, metformin will be deferred until later date, and will consider an SLGT 2 abdomen outpatient basis. She'll continue on her diarrheal for hypertension. she will be reevaluated in the a.m. 11/08/2019: Patient was started on Tradjenta and Accu-Cheks along with NovoLog scale for her new onset diabetes. her Depakote was increased to 500 mg 3 times a day, as it was not therapeutic. She has not had a seizure in 6 months. She feels okay today. We discussed diabetes and diabetic education. Her cultures have confirmed MRSA. It does not appear to be susceptible to Zosyn. Today, she denies any chest pains, pressures, shortness breath. She has her wo und VAC in place. She is complaining of obstipation 5 days 11/09/2019 PICC line placed for DC IV antibiotics. afebrile. blood sugars controlled. Denies any chest pain, palpitations or shortness of breath. Denies nausea vomiting or diarrhea. Surgery is discharging patient to subacute rehab today. Objective - Vital Signs Vital signs: Vital Signs Temp 98.2 F 11/09/19 07:29 Pulse 82 11/09/19 08:35 Resp 16 11/09/19 07:29 BP 123/67 11/09/19 07:29 Pulse Ox 97 11/09/19 08:23 Intake & Output 11/08/19 11/09/19 11/09/19 18:59 06:59 18:59 Intake Total 1080 220 Balance 1080 220 Intake: Oral 1080 220 Other: Voiding Method Toilet Toilet # Voids 2 1 # Bowel Movements 1 - Exam - Constitutional General appearance: morbidly obese - EENT Eyes: PERRLA - Neck Neck: no lymphadenopathy, no thyromegaly Thyroid: bilateral: normal size - Respiratory Respiratory: bilateral: diminished - Cardiovascular Rhythm: regular Heart sounds: normal: S1, S2 Abnormal Heart Sounds: no systolic murmur - Gastrointestinal General gastrointestinal: normal bowel sounds Localized gastrointestinal: tender: epigastric periumbilical,status post Iand D, wound VAC present. Positive bowel sounds - Neurologic Neurologic: CNII-XII intact - Musculoskeletal Musculoskeletal: gait normal - Psychiatric Psychiatric: A&O x's 3 Microbiology 11/05/19 09:21 Blood Blood Culture - Preliminary No Growth after 96 hours 11/05/19 15:02 Abdomen Gram Stain - Final 11/05/19 15:02 Abdomen Wound Culture - Final Methicillin resist S. aureus 11/04/19 20:00 Blood Blood Culture - Preliminary No Growth after 96 hours 11/05/19 15:02 Abdomen Anaerobic Culture - Preliminary 11/04/19 19:15 Abdomen Gram Stain - Final 11/04/19 19:15 Abdomen Wound Culture - Final - Labs CBC & Chem 7: 11/08/19 06:42 11/09/19 06:24 Labs: Abnormal Lab Results - Last 24 Hours (Table) 11/08/19 11/08/19 11/09/19 Range/Units 16:52 20:34 06:24 Sodium 136 L (137-145) mmol/L Glucose 114 H (74-99) mg/dL POC Glucose (mg/dL) 140 H 139 H (75-99) mg/dL 11/09/19 11/09/19 Range/Units 06:46 11:38 Sodium (137-145) mmol/L Glucose (74-99) mg/dL POC Glucose (mg/dL) 112 H 115 H (75-99) mg/dL Microbiology - Last 24 Hours (Table) 11/05/19 09:21 Blood Culture - Preliminary Blood No Growth after 96 hours 11/05/19 15:02 Gram Stain - Final Abdomen Wound Culture - Final Methicillin resist S. aureus 11/04/19 20:00 Blood Culture - Preliminary Blood No Growth after 96 hours Assessment and Plan Assessment: (1) Seizure disorder Current Visit: Yes Status: Acute Code(s): G40.909 - EPILEPSY, UNSP, NOT INTRACTABLE, WITHOUT STATUS EPILEPTICUS SNOMED Code(s): 928666618 (2) Tobacco abuse Current Visit: Yes Status: Acute Code(s): Z72.0 - TOBACCO USE SNOMED Code(s): 630498787 (3) Asthma Current Visit: Yes Status: Acute Code(s): J45.909 - UNSPECIFIED ASTHMA, UNCOMPLICATED SNOMED Code(s): 133403929 (4) Chronic, continuous use of opioids Current Visit: Yes Status: Acute Code(s): F11.90 - OPIOID USE, UNSPECIFIED, UNCOMPLICATED SNOMED Code(s): 271916206 (5) Essential (primary) hypertension Current Visit: Yes Status: Acute Code(s): I10 - ESSENTIAL (PRIMARY) HYPERTENSION SNOMED Code(s): 98577808 (6) Cellulitis of periumbilical region,status post I&D with removal of subfas cial mesh,cultures positive for MRSA Current Visit: Yes Status: Acute Code(s): L03.319 - CELLULITIS OF TRUNK, UNSPECIFIED SNOMED Code(s): 52086017 (7) External incisional dehiscence Current Visit: Yes Status: Acute Code(s): T81.31XA - DISRUPTION OF EXTERNAL OPERATION (SURGICAL) WOUND, NEC, INIT SNOMED Code(s): 581366034736165 (8) Morbid obesity with BMI of 60.0-69.9, adult Current Visit: No Status: Acute Code(s): E66.01 - MORBID (SEVERE) OBESITY DUE TO EXCESS CALORIES; Z68.44 - BODY MASS INDEX (BMI) 60.0-69.9, ADULT SNOMED Code(s): 986985254 (9) history of MRSA (10) Diabetes mellitus type 2 with hyperglycemia plan: Continue current medication regime ,monitoring and symptomatic treatment. PICC line placed with DC antibiotics as per infectious disease. significant clinical improvement. Surgery discharging patient today to subacute rehab.follow-up with PCP in 1 week after discharge from subacute rehab. Type monitoring of blood sugars, patient being discharged on metformin, trijenta and novolog sliding scale insulin. The impression and plan of care has been dictated as directed. : I performed a history and examination of this patient, discussed the same with the dictator. I agree with the dictator's note ,documented as a scribe. Any additional findings or plans will be noted.
[2019-11-09] MEDS ORDERED: VANCOMYCIN TROUGH DUE 1 EACH MISC MISCELLANE ONE (13:00)
[2019-11-09 16:43] LABS: Glucose,Whole Blood 131 mg/dL (75-99)
[2019-11-09] MEDS: FLUNISOLIDE INHALATION SCH (20:14)
[2019-11-09] MEDS: oxyCODONE-APAP 10-325MG 1 EACH TAB PO PRN (20:18)
[2019-11-09 20:56] LABS: Glucose,Whole Blood 132 mg/dL (75-99)
--- NOTE | 2019-11-09 21:51 | P.PN ---
Subjective Progress Note Date: 11/09/19 This is a 44-year-old morbidly obese female with history of incarcerated incisional hernia repair with mesh done on 05/22/[address] Bentley. For the past month patient has had intermittent tightness and pulling at the umbilicus. About one week ago she started having drainage from the wound a jared along with discomfort and pain and possibly some intermittent fevers. She states it was yellow in color. She has been recently on oral amoxicillin for a tooth infection. Patient came into [facility] emergency center for evaluation on November 04 and she was found to be afebrile, WBC initially 12.0 now at 16, lactic acid has been consistently elevated during her stay. Albumin 3.8, BUN 18 creatinine 0.61. Blood culture 2 are showing no growth at 24 hours. Wound cultures in progress. Yesterday, patient underwent I&D of infected abdominal wall fluid collection with infected subfascial mesh. Mesh was also removed. Patient states her abdomen is still sore. She relates that a wound VAC is planned. Discussed discharge planning the patient states that she is [facility] [facility]. She did tell supervisor case loading that she is living with her cousin and plans to return there at the time of discharge. Patient relates to me that she has just been bouncing from place to place and is interested in having subacute rehab. Patient is currently on Zosyn and vancomycin.she states she has not had a bowel movement since procedure but is passing gas. 11/07/2019 patient is improved but is still having ongoing pain stating her pain level is 7 out of 10 at this time. She is not having nausea or emesis. No fevers or chills. 11/09/2019patient is having improvement of he, she is having no fevers or chills, is eating most of her nausea or emesis. Working with the Case zara antoine about placement. Objective - Vital Signs Vital signs: Vital Signs Temp 98.3 F 11/09/19 19:21 Pulse 81 11/09/19 19:56 Resp 18 11/09/19 19:56 BP 135/77 11/09/19 19:21 Pulse Ox 96 11/09/19 19:21 Intake & Output 11/09/19 11/09/19 11/10/19 06:59 18:59 06:59 Intake Total 220 Balance 220 Intake: Oral 220 Other: Voiding Method Toilet # Voids 1 2 # Bowel Movements 1 - Exam Gen: This is a super morbid obese 44-year-old female. Patient's resting bed and appears to be comfortable. HEENT: Head is atraumatic, normocephalic. Pupils equal, round. Sclerae is anicteric. oral mucous membranes are moist. No thrush noted. Dentition is in fair order. NECK: Supple. No JVD. No lymphadenopathy. No thyromegaly. LUNGS: Clear to auscultation. No wheezes or rhonchi. No intercostal retractions. HEART: Regular rate and rhythm. No murmur. ABDOMEN: Soft. Bowel sounds are present. No masses. Abdominal ulceration is evaluated. There is evidence of no significant purulence. There is no significant bleeding. Drainage is minimal at this time. Please see the nursing photography for its size. EXTREMITIES: No pedal edema. No calf tenderness.dorsalis pedis +2 bilaterally. NEUROLOGICAL: Patient is awake, alert and oriented x3. - Labs CBC & Chem 7: 11/08/19 06:42 11/09/19 06:24 Labs: Abnormal Lab Results - Last 24 Hours (Table) 11/09/19 11/09/19 11/09/19 Range/Units 06:24 06:46 11:38 Sodium 136 L (137-145) mmol/L Glucose 114 H (74-99) mg/dL POC Glucose (mg/dL) 112 H 115 H (75-99) mg/dL 11/09/19 11/09/19 Range/Units 16:42 20:54 Sodium (137-145) mmol/L Glucose (74-99) mg/dL POC Glucose (mg/dL) 131 H 132 H (75-99) mg/dL Microbiology - Last 24 Hours (Table) 11/05/19 15:02 Anaerobic Culture - Final Abdomen 11/05/19 09:21 Blood Culture - Preliminary Blood No Growth after 96 hours 11/05/19 15:02 Gram Stain - Final Abdomen Wound Culture - Final Methicillin resist S. aureus 11/04/19 20:00 Blood Culture - Preliminary Blood No Growth after 96 hours Assessment and Plan (1) External incisional dehiscence Current Visit: Yes Status: Acute Code(s): T81.31XA - DISRUPTION OF EXTERNAL OPERATION (SURGICAL) WOUND, NEC, INIT SNOMED Code(s): 609996914575462 (2) Infected prosthetic mesh of abdominal wall Narrative/Plan: 44 -year-old woman with superobesity her BMI is 63. It had difficulty with herniated abdominal wall as he had mesh placed into occasions. The mesh became infected mesh into the operating room and the meshes been removed. She has a history of tobacco or alcohol infection the past including MRSA. At the time of the consult vancomycin therapy was added to the Zosyn that was are being utilized. At this time cultures are pending which will help us determine our antibiotic therapy. If MRSA is isolated the plan will be for intravenous antibiotic therapy with vancomycin likely over 4-6 weeks to try to resolve this very complex infection. It does appear that the majority of the mesh has been removed. nce the infection is improving over the be a candidate for negative pressure therapy is to be evaluated over the next couple of days. If possible in the wound VAC will be added. It does appear that she was going to subacute rehab after her discharge to receive wound care antibiotics and improvement of her overall status. Patient with elevated lactic acid and at this point in time it may be related to her superobesity. As expected the culture is no showing evidence of MRSA at the surgical site. Vancomycin is or even added. We will await final cultures. If MRSA is found appear culture than the other antibiotic therapies may be discontinued. She will need IV access placed to receive her intravenous antibiotic therapy at the extended care facility. We have asked the wound VAC to be applied now that the bleeding is under good control and there is evidence of incomplete improvement of the infection. November 09 2019 the patient continues to improve. Being ready for discharge to the extended care facility or shortness of her negative pressure therapy to the large wound that is status post mesh removal. Antibiotic therapy is vancomycin for the isolated MRSA. Plan is multiweek course of therapy, at [facility] She will follow up in the wound center after discharge. Current Visit: Yes Status: Acute Code(s): T85.79XA - INFECT/INFLM REACTION DUE TO OTH INT PROSTH DEV/GRFT, INIT SNOMED Code(s): 218232897 (3) Morbid obesity with BMI of 60.0-69.9, adult Current Visit: No Status: Acute Code(s): E66.01 - MORBID (SEVERE) OBESITY DUE TO EXCESS CALORIES; Z68.44 - BODY MASS INDEX (BMI) 60.0-69.9, ADULT SNOMED Code(s): 350985651
[2019-11-10] MEDS: HEPARIN SODIUM,PORCINE 5,000 UNIT/ML 1 ML VIAL SQ SCH ×4 (00:14→23:43)
[2019-11-10] MEDS: oxyCODONE-APAP 10-325MG 1 EACH TAB PO PRN ×6 (00:14→21:26)
[2019-11-10] MEDS: VANCOMYCIN 2,250 MG in SODIUM CHLORIDE 0.9% 500 ML 500 ML IVPB SCH ×2 (04:48→17:08)
[2019-11-10] MEDS: SODIUM CHLORIDE 0.9% 1,000 ML IV SCH ×2 (06:07→17:05)
[2019-11-10 06:49] LABS: Glucose,Whole Blood 139 mg/dL (75-99)
[2019-11-10] MEDS: VENLAFAXINE HCL ER 150 MG CAP PO SCH (07:34)
[2019-11-10] MEDS: HYDROCHLOROTHIAZIDE 25 MG TAB PO SCH (07:35)
[2019-11-10] MEDS: DIVALPROEX ER 500 MG TAB.ER.24H PO SCH ×3 (07:35→21:22)
[2019-11-10] MEDS: LINAGLIPTIN 5 MG TABLET PO SCH (07:35)
[2019-11-10] MEDS: metFORMIN 500 MG TAB PO SCH ×2 (07:35→17:02)
[2019-11-10] MEDS: OXYBUTYNIN CHLORIDE 5 MG TAB PO SCH ×2 (07:35→21:22)
[2019-11-10] MEDS: INSULIN ASPART (NovoLOG) 100 UNIT/ML VIAL SQ SCH ×4 (07:37→21:26)
[2019-11-10] MEDS: NICOTINE 21MG/24HR PATCH TRANSDERM SCH (07:37)
[2019-11-10] MEDS: ALBUTEROL NEBULIZED 2.5 MG/3 ML INHALATION SCH ×2 (09:54→19:42)
[2019-11-10] MEDS: FLUTICASONE 44 MCG INHALER INHALATION SCH (09:54)
--- NOTE | 2019-11-10 11:21 | P.PN ---
Progress Note - Text Progress Note Date: 11/10/19 Patient remains stable for discharge today to subacute rehab. Pending insurance authorization.
[2019-11-10 11:55] LABS: Glucose,Whole Blood 138 mg/dL (75-99)
--- NOTE | 2019-11-10 13:48 | P.PN ---
Subjective Progress Note Date: 11/10/19 This is a 44y/o female who is new and not been sen in our practice yet. She had undergone and abdominal hernia repair in March [address] Bentley. She report strectching recently and her umbilical incision tore open and purulent D/C came from the opening. Shehas been admitted for further Tx. She has a h/o seizures ,last 6 m/o ago. She takes Depakote for this. She is asthmatic and smokes. She uses albuterol for this. Today SHe denies any chest pain, pressure, SOB at rest, Nausea or vomiting. 11/06/2019 status post I&D of infected abdominal wall fluid collection with removal of infected subfascial mesh, tolerated procedure well pain controlled. Lactic acid 2.2, WBC 16.3.tolerating regular diet with no nausea vomiting or diarrhea.passing flatus, no bowel movement.maintained on vancomycin and Zosyn as per infectious disease.creatinine 0.61. denies chest pain, palpitations or shortness of breath. Denies lightheadedness, dizziness or focal deficits. 11/07/2019:Patient's ziotyxrbmaG4s was 8.0 and her Depakote level was found to be 20.8.patient was in the restroom and cannot be examined today. regarding her seizure disorder,Depakote 500 mg ER be increased to 3 times a day for the next several days. Repeat Depakote level in 2 days. regarding her new onset diabetes, She will be started on a Tradjenta 5 mg daily, Accu-Cheks before meals and at bedtime, and NovoLog scale. Presumptive MRSA is in her cultures. She continues on vancomycin and Zosyn. Infectious disease is on board. due to her superobesity and elevated plasma lactic acid, metformin will be deferred until later date, and will consider an SLGT 2 abdomen outpatient basis. She'll continue on her diarrheal for hypertension. she will be reevaluated in the a.m. 11/08/2019: Patient was started on Tradjenta and Accu-Cheks along with NovoLog scale for her new onset diabetes. her Depakote was increased to 500 mg 3 times a day, as it was not therapeutic. She has not had a seizure in 6 months. She feels okay today. We discussed diabetes and diabetic education. Her cultures have confirmed MRSA. It does not appear to be susceptible to Zosyn. Today, she denies any chest pains, pressures, shortness breath. She has her wo und VAC in place. She is complaining of obstipation 5 days 11/09/2019 PICC line placed for DC IV antibiotics. afebrile. blood sugars controlled. Denies any chest pain, palpitations or shortness of breath. Denies nausea vomiting or diarrhea. Surgery is discharging patient to subacute rehab today. 11/10/2019 consuming 100% of breakfast, no nausea or vomiting.blood sugars controlled.maintained on IV antibiotics as per infectious disease and via PICC line.denies chest pain, palpitations or shortness of breath. Denies lightheadedness, dizziness or focal deficits. placement pending authorization. Objective - Vital Signs Vital signs: Vital Signs Temp 97.6 F 11/10/19 07:00 Pulse 85 11/10/19 07:00 Resp 17 11/10/19 07:30 BP 118/63 11/10/19 07:00 Pulse Ox 95 11/10/19 07:00 Intake & Output 11/09/19 11/10/19 11/10/19 18:59 06:59 18:59 Intake Total 220 Balance 220 Intake: Oral 220 Other: Voiding Method Toilet Toilet # Voids 2 2 - Exam - Constitutional General appearance: morbidly obese - EENT Eyes: PERRLA - Neck Neck: no lymphadenopathy, no thyromegaly Thyroid: bilateral: normal size - Respiratory Respiratory: bilateral: diminished - Cardiovascular Rhythm: regular Heart sounds: normal: S1, S2 Abnormal Heart Sounds: no systolic murmur - Gastrointestinal General gastrointestinal: normal bowel sounds Localized gastrointestinal: tender: epigastric periumbilical,status post Iand D, wound VAC present. Positive bowel sounds - Neurologic Neurologic: CNII-XII intact - Musculoskeletal Musculoskeletal: gait normal - Psychiatric Psychiatric: A&O x's 3 Microbiology 11/04/19 20:00 Blood Blood Culture - Preliminary No Growth after 120 hours 11/05/19 15:02 Abdomen Anaerobic Culture - Final 11/05/19 09:21 Blood Blood Culture - Preliminary No Growth after 96 hours 11/05/19 15:02 Abdomen Gram Stain - Final 11/05/19 15:02 Abdomen Wound Culture - Final Methicillin resist S. aureus 11/04/19 19:15 Abdomen Gram Stain - Final 11/04/19 19:15 Abdomen Wound Culture - Final - Labs CBC & Chem 7: 11/08/19 06:42 11/09/19 06:24 Labs: Abnormal Lab Results - Last 24 Hours (Table) 11/09/19 11/09/19 11/09/19 Range/Units 06:24 11:38 16:42 Sodium 136 L (137-145) mmol/L Glucose 114 H (74-99) mg/dL POC Glucose (mg/dL) 115 H 131 H (75-99) mg/dL 11/09/19 11/10/19 Range/Units 20:54 06:46 Sodium (137-145) mmol/L Glucose (74-99) mg/dL POC Glucose (mg/dL) 132 H 139 H (75-99) mg/dL Microbiology - Last 24 Hours (Table) 11/04/19 20:00 Blood Culture - Preliminary Blood No Growth after 120 hours 11/05/19 15:02 Anaerobic Culture - Final Abdomen 11/05/19 09:21 Blood Culture - Preliminary Blood No Growth after 96 hours 11/05/19 15:02 Gram Stain - Final Abdomen Wound Culture - Final Methicillin resist S. aureus Assessment and Plan Assessment: (1) Seizure disorder Current Visit: Yes Status: Acute Code(s): G40.909 - EPILEPSY, UNSP, NOT INTRACTABLE, WITHOUT STATUS EPILEPTICUS SNOMED Code(s): 426925110 (2) Tobacco abuse Current Visit: Yes Status: Acute Code(s): Z72.0 - TOBACCO USE SNOMED Cod e(s): 882121619 (3) Asthma Current Visit: Yes Status: Acute Code(s): J45.909 - UNSPECIFIED ASTHMA, UNCOMPLICATED SNOMED Code(s): 832476569 (4) Chronic, continuous use of opioids Current Visit: Yes Status: Acute Code(s): F11.90 - OPIOID USE, UNSPECIFIED, UNCOMPLICATED SNOMED Code(s): 455612353 (5) Essential (primary) hypertension Current Visit: Yes Status: Acute Code(s): I10 - ESSENTIAL (PRIMARY) HYPERTENSION SNOMED Code(s): 38161868 (6) Cellulitis of periumbilical region,status post I&D with removal of subfascial mesh,cultures positive for MRSA Current Visit: Yes Status: Acute Code(s): L03.319 - CELLULITIS OF TRUNK, UNSPECIFIED SNOMED Code(s): 20345175 (7) External incisional dehiscence Current Visit: Yes Status: Acute Code(s): T81.31XA - DISRUPTION OF EXTERNAL OPERATION (SURGICAL) WOUND, NEC, INIT SNOMED Code(s): 582160215605883 (8) Morbid obesity with BMI of 60.0-69.9, adult Current Visit: No Status: Acute Code(s): E66.01 - MORBID (SEVERE) OBESITY DUE TO EXCESS CALORIES; Z68.44 - BODY MASS INDEX (BMI) 60.0-69.9, ADULT SNOMED Code(s): 186548066 (9) history of MRSA (10) Diabetes mellitus type 2 with hyperglycemia plan: Continue current medication regime ,monitoring and symptomatic treatment. Significant clinical improvement. maintain Tight control of blood sugars. medical signing off. please call with any further questions or concerns. discharge planning in progress pending authorization. The impression and plan of care has been dictated as directed. : I performed a history and examination of this patient, discussed the same with the dictator. I agree with the dictator's note ,documented as a scribe. Any additional findings or plans will be noted.
--- NOTE | 2019-11-10 15:11 | P.PN ---
<Angie Muñoz - Last Filed: 11/10/19 15:09> Subjective Progress Note Date: 11/10/19 CHIEF COMPLAINT: drainage from surgical site HISTORY OF PRESENT ILLNESS: patient is status post incision and drainage of abdominal wall fluid collection removal subcufascial mesh and fascial closure. Patient examined at the bedside. She reports her pain is tolerable. Denies nausea or vomiting. PHYSICAL EXAM: VITAL SIGNS: Reviewed. GENERAL: Well-developed in no acute distress. HEENT: No sclera icterus. Extraocular movements grossly intact. Moist buccal mucosa. Head is atraumatic, normocephalic. ABDOMEN: Soft. Nondistended. wound VAC noted. NEUROLOGIC: Alert and oriented. Cranial nerves II through XII grossly intact. ASSESSMENT: 1. Abdominal wall abscess 2. History of incarcerated incisional hernia with mesh on 05/22/2019 3. Previous hernia repair with postoperative infection, + MRSA PLAN: Patient was cleared for discharge yesterday to subacute rehab. She remains stable. She is awaiting insurance authorization. Nurse practitioner note has been reviewed by physician. Signing provider agrees with the documented findings, assessment, and plan of care. Objective - Vital Signs Vital signs: Vital Signs Temp 98.6 F 11/10/19 14:31 Pulse 83 11/10/19 14:31 Resp 17 11/10/19 14:31 BP 120/68 11/10/19 14:31 Pulse Ox 98 11/10/19 14:31 Intake & Output 11/09/19 11/10/19 11/10/19 18:59 06:59 18:59 Intake Total 220 Balance 220 Intake: Oral 220 Other: Voiding Method Toilet Toilet # Voids 2 2 - Labs CBC & Chem 7: 11/08/19 06:42 11/09/19 06:24 Labs: Abnormal Lab Results - Last 24 Hours (Table) 11/09/19 11/09/19 11/10/19 Range/Units 16:42 20:54 06:46 POC Glucose (mg/dL) 131 H 132 H 139 H (75-99) mg/dL 11/10/19 Range/Units 11:43 POC Glucose (mg/dL) 138 H (75-99) mg/dL Microbiology - Last 24 Hours (Table) 11/05/19 09:21 Blood Culture - Preliminary Blood No Growth after 120 hours 11/04/19 20:00 Blood Culture - Preliminary Blood No Growth after 120 hours 11/05/19 15:02 Anaerobic Culture - Final Abdomen <Aristeo Bentley - Last Filed: 11/10/19 20:46> Subjective As above. Patient doing well today. Pain is controlled. Plan transfer to rehabilitation tomorrow. Continue wound VAC therapy. Antibiotics per infecti ous disease. Objective - Vital Signs Vital signs: Vital Signs Temp 98.2 F 11/10/19 19:47 Pulse 82 11/10/19 19:53 Resp 16 11/10/19 19:47 BP 146/71 11/10/19 19:47 Pulse Ox 95 11/10/19 19:47 Intake & Output 11/10/19 11/10/19 11/11/19 06:59 18:59 06:59 Other: Voiding Method Toilet Toilet # Voids 2 - Labs CBC & Chem 7: 11/08/19 06:42 11/09/19 06:24 Labs: Abnormal Lab Results - Last 24 Hours (Table) 11/09/19 11/10/19 11/10/19 Range/Units 20:54 06:46 11:43 POC Glucose (mg/dL) 132 H 139 H 138 H (75-99) mg/dL 11/10/19 11/10/19 Range/Units 16:40 20:21 POC Glucose (mg/dL) 148 H 159 H (75-99) mg/dL Microbiology - Last 24 Hours (Table) 11/05/19 09:21 Blood Culture - Preliminary Blood No Growth after 120 hours 11/04/19 20:00 Blood Culture - Preliminary Blood No Growth after 120 hours 11/05/19 15:02 Anaerobic Culture - Final Abdomen Assessment and Plan (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
[2019-11-10 16:52] LABS: Glucose,Whole Blood 148 mg/dL (75-99)
[2019-11-10 20:33] LABS: Glucose,Whole Blood 159 mg/dL (75-99)
[2019-11-10] MEDS ORDERED: CLOTRIMAZOLE 1% CREAM 15 GM TUBE TOPICAL SCH (21:00)
[2019-11-10 21:33] LABS: Glucose,Whole Blood 152 mg/dL (75-99)
[2019-11-10] MEDS ORDERED: MICONAZOLE NITRATE 4%/2% VAG CREAM KIT VAGINAL SCH (22:45)
--- NOTE | 2019-11-10 22:56 | P.PN ---
Subjective Progress Note Date: 11/10/19 This is a 44-year-old morbidly obese female with history of incarcerated incisional hernia repair with mesh done on 05/22/[address] Bentley. For the past month patient has had intermittent tightness and pulling at the umbilicus. About one week ago she started having drainage from the wound a jared along with discomfort and pain and possibly some intermittent fevers. She states it was yellow in color. She has been recently on oral amoxicillin for a tooth infection. Patient came into [facility] emergency center for evaluation on November 04 and she was found to be afebrile, WBC initially 12.0 now at 16, lactic acid has been consistently elevated during her stay. Albumin 3.8, BUN 18 creatinine 0.61. Blood culture 2 are showing no growth at 24 hours. Wound cultures in progress. Yesterday, patient underwent I&D of infected abdominal wall fluid collection with infected subfascial mesh. Mesh was also removed. Patient states her abdomen is still sore. She relates that a wound VAC is planned. Discussed discharge planning the patient [facility] She did tell case finishing machine adjuster that she is living with her cousin and plans to return there at the time of discharge. Patient relates to me that she has just been bouncing from place to place and is interested in having subacute rehab. Patient is currently on Zosyn and vancomycin.she states she has not had a bowel movement since procedure but is passing gas. 11/07/2019 patient is improved but is still having ongoing pain stating her pain level is 7 out of 10 at this time. She is not having nausea or emesis. No fevers or chills. 11/09/2019patient is having improvement of he, she is having no fevers or chills, is eating most of her nausea or emesis. Working with the Case zara antoine about placement. 11/10/2018 the patient has had some further improvement. She is tolerating the negative pressure therapy system well, and is having no difficulty with her antibiotic therapy of vancomycin. Arrangements being made for her to go to the rehab facility to complete her wound care and many weeks of antibiotics for this complex MRSA infection or infected mesh that has been removed. Objective - Vital Signs Vital signs: Vital Signs Temp 98.2 F 12/17/19 19:47 Pulse 82 11/10/19 19:53 Resp 16 11/10/19 19:47 BP 146/71 11/10/19 19:47 Pulse Ox 95 11/10/19 19:47 Intake & Output 11/10/19 11/10/19 11/11/19 06:59 18:59 06:59 Other: Voiding Method Toilet Toilet # Voids 2 - Exam Gen: This is a super morbid obese 44-year-old female. Patient's resting bed and appears to be comfortable. HEENT: Head is atraumatic, normocephalic. Pupils equal, round. Sclerae is anicteric. oral mucous membranes are moist. No thrush noted. Dentition is in fair order. NECK: Supple. No JVD. No lymphadenopathy. No thyromegaly. LUNGS: Clear to auscultation. No wheezes or rhonchi. No intercostal retractions. HEART: Regular rate and rhythm. No murmur. ABDOMEN: Soft. Bowel sounds are present. No masses. Abdominal ulceration is evaluated. There is evidence of no significant purulence. There is no significant bleeding. Drainage is minimal at this time. Please see the nursing photography for its size. EXTREMITIES: No pedal edema. No calf tenderness.dorsalis pedis +2 bilaterally. NEUROLOGICAL: Patient is awake, alert and oriented x3. - Labs CBC & Chem 7: 11/08/19 06:42 11/09/19 06:24 Labs: Abnormal Lab Results - Last 24 Hours (Table) 11/10/19 11/10/19 11/10/19 Range/Units 06:46 11:43 16:40 POC Glucose (mg/dL) 139 H 138 H 148 H (75-99) mg/dL 11/10/19 11/10/19 Range/Units 20:21 21:21 POC Glucose (mg/dL) 159 H 152 H (75-99) mg/dL Microbiology - Last 24 Hours (Table) 11/04/19 20:00 Blood Culture - Final Blood No Growth after 144 hours 11/05/19 09:21 Blood Culture - Preliminary Blood No Growth after 120 hours 11/05/19 15:02 Anaerobic Culture - Final Abdomen Laboratory Results WBC 10.2 k/uL (3.8-10.6) 11/08/19 06:42 RBC 4.14 m/uL (3.80-5.40) 11/08/19 06:42 Hgb 12.4 gm/dL (11.4-16.0) 11/08/19 06:42 Hct 38.4 % (34.0-46.0) 11/08/19 06:42 MCV 92.8 fL (80.0-100.0) 11/08/19 06:42 MCH 29.9 pg (25.0-35.0) 11/08/19 06:42 MCHC 32.2 g/dL (31.0-37.0) 11/08/19 06:42 RDW 14.1 % (11.5-15.5) 11/08/19 06:42 Plt Count 259 k/uL (150-450) 11/08/19 06:42 Neutrophils % 59 % 11/08/19 06:42 Lymphocytes % 30 % 11/08/19 06:42 Monocytes % 6 % 11/08/19 06:42 Eosinophils % 3 % 11/08/19 06:42 Basophils % 1 % 11/08/19 06:42 Neutrophils # 6.0 k/uL (1.3-7.7) 11/08/19 06:42 Lymphocytes # 3.0 k/uL (1.0-4.8) 11/08/19 06:42 Monocytes # 0.6 k/uL (0-1.0) 11/08/19 06:42 Eosinophils # 0.4 k/uL (0-0.7) 11/08/19 06:42 Basophils # 0.1 k/uL (0-0.2) 11/08/19 06:42 Sodium 136 mmol/L (137-145) L 11/09/19 06:24 Potassium 4.6 mmol/L (3.5-5.1) 11/09/19 06:24 Chloride 105 mmol/L (98-107) 11/09/19 06:24 Carbon Dioxide 23 mmol/L (22-30) 11/09/19 06:24 Anion Gap 8 mmol/L 11/09/19 06:24 BUN 16 mg/dL (7-17) 11/09/19 06:24 Creatinine 0.63 mg/dL (0.52-1.04) 11/09/19 06:24 Est GFR (CKD-EPI)AfAm >90 (>60 ml/min/1.73 sqM) 11/09/19 06:24 Est GFR (CKD-EPI)NonAf >90 (>60 ml/min/1.73 sqM) 11/09/19 06:24 Glucose 114 mg/dL (74-99) H 11/09/19 06:24 POC Glucose (mg/dL) 152 mg/dL (75-99) H 11/10/19 21:21 POC Glu Bowling Alley Operator ID Hong Louise 11/10/19 21:[address] Glu mg/dL 183 11/06/19 05:42 Hemoglobin A1c 8.0 % (4.0-6.0) H 11/06/19 05:42 Lactic Ac Sepsis Rflx Y 11/07/19 07:45 Plasma Lactic Acid Leon 1.5 mmol/L (0.7-2.0) 11/08/19 06:42 Calcium 9.1 mg/dL (8.4-10.2) 11/09/19 06:24 Total Bilirubin 0.3 mg/dL (0.2-1.3) 11/06/19 05:42 AST 16 U/L (14-36) 11/06/19 05:42 ALT 19 U/L (4-34) 11/06/19 05:42 Alkaline Phosphatase 59 U/L (38-126) 11/06/19 05:42 Total Protein 6.9 g/dL (6.3-8.2) 11/06/19 05:42 Albumin 3.8 g/dL (3.5-5.0) 11/06/19 05:42 Urine Color Yellow 11/04/19 Unknown Urine Appearance Clear (Clear) 11/04/19 Unknown Urine pH 6.5 (5.0-8.0) 11/04/19 Unknown Ur Specific [place] 1.021 (1.001-1.035) 11/04/19 Unknown Urine Protein Trace (Negative) H 11/04/19 Unknown Urine Glucose (UA) Negative (Negative) 11/04/19 Unknown Urine Ketones 1+ (Negative) H 11/04/19 Unknown Urine Blood Negative (Negative) 11/04/19 Unknown Urine Nitrite Negative (Negative) 11/04/19 Unknown Urine Bilirubin Negative (Negative) 11/04/19 Unknown Urine Urobilinogen <2.0 mg/dL (<2.0) 11/04/19 Unknown Ur Leukocyte Esterase Negative (Negative) 11/04/19 Unknown Urine HCG, Qual Not Detected (Not Detectd) 11/04/19 Unknown Vancomycin Trough 21.4 ug/mL 11/09/19 13:02 Valproic Acid 43.5 ug/mL 11/09/19 06:24 Microbiology 11/04/19 20:00 Blood Blood Culture - Final No Growth after 144 hours 11/05/19 09:21 Blood Blood Culture - Preliminary No Growth after 120 hours 11/05/19 15:02 Abdomen Anaerobic Culture - Final 11/05/19 15:02 Abdomen Gram Stain - Final 11/05/19 15:02 Abdomen Wound Culture - Final Methicillin resist S. 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 It had difficulty with herniated abdominal wall as he had mesh placed into occasions. The mesh became infected mesh into the operating room and the meshes been removed. She has a history of tobacco or alcohol infection the past including MRSA. At the time of the consult vancomycin therapy was added to the Zosyn that was are being utilized. At this time cultures are pending which will help us determine our antibiotic therapy. If MRSA is isolated the plan will be for intravenous antibiotic therapy with vancomycin likely over 4-6 weeks to try to resolve this very complex infection. It does appear that the majority of the mesh has been removed. nce the infection is improving over the be a candidate for negative pressure therapy is to be evaluated over the next couple of days. If possible in the wound VAC will be added. It does appear that she was going to subacute rehab after her discharge to receive wound care antibiotics and improvement of her overall status. Patient with elevated lactic acid and at this point in time it may be related to her superobesity. As expected the culture is no showing evidence of MRSA at the surgical site. Vancomycin is or even added. We will await final cultures. If MRSA is found appear culture than the other antibiotic therapies may be discontinued. She will need IV access placed to receive her intravenous antibiotic therapy at the extended care facility. We have asked the wound VAC to be applied now that the bleeding is under good control and there is evidence of incomplete improvement o f the infection. November 09 2019 the patient continues to improve. Being ready for discharge to the extended care facility or shortness of her negative pressure therapy to the large wound that is status post mesh removal. Antibiotic therapy is vancomycin for the isolated MRSA. Plan is multiweek course of therapy, at least 4 weeks is planned at [facility], [place]. She will follow up in the wound center after discharge. 11/10/2019 the patient has had some further improvement. Her pain is better controlled. Tolerating the negative pressure therapy system well. They're well with the change. Her pain overall is improved. She's having no fevers. She is tolerating the antibiotic therapy of vancomycin well being dosed by the pharmacy. We'll plan at least 4 weeks of antibiotic therapy for this complex infection.we'll be able to follow her at the wound healing center. Current Visit: Yes Status: Acute Code(s): T85.79XA - INFECT/INFLM REACTION DUE TO OTH INT PROSTH DEV/GRFT, INIT SNOMED Code(s): 873504078 (3) Morbid obesity with BMI of 60.0-69.9, adult Current Visit: No Status: Acute Code(s): E66.01 - MORBID (SEVERE) OBESITY DUE TO EXCESS CALORIES; Z68.44 - BODY MASS INDEX (BMI) 60.0-69.9, ADULT SNOMED Code(s): 707918102
[2019-11-11] MEDS: oxyCODONE-APAP 10-325MG 1 EACH TAB PO PRN ×5 (01:27→18:05)
[2019-11-11] MEDS: FLUNISOLIDE INHALATION SCH (01:45)
[2019-11-11] MEDS: SODIUM CHLORIDE 0.9% 1,000 ML IV SCH ×2 (04:51→11:53)
[2019-11-11] MEDS: VANCOMYCIN 2,250 MG in SODIUM CHLORIDE 0.9% 500 ML 500 ML IVPB SCH (05:30)
[2019-11-11 06:53] LABS: Glucose,Whole Blood 114 mg/dL (75-99)
[2019-11-11] MEDS: OXYBUTYNIN CHLORIDE 5 MG TAB PO SCH (07:35)
[2019-11-11] MEDS: metFORMIN 500 MG TAB PO SCH ×2 (07:35→17:15)
[2019-11-11] MEDS: DIVALPROEX ER 500 MG TAB.ER.24H PO SCH ×2 (07:36→16:28)
[2019-11-11] MEDS: LINAGLIPTIN 5 MG TABLET PO SCH (07:36)
[2019-11-11] MEDS: HYDROCHLOROTHIAZIDE 25 MG TAB PO SCH (07:36)
[2019-11-11] MEDS: INSULIN ASPART (NovoLOG) 100 UNIT/ML VIAL SQ SCH ×2 (07:36→11:53)
[2019-11-11] MEDS: VENLAFAXINE HCL ER 150 MG CAP PO SCH (07:36)
[2019-11-11] MEDS: HEPARIN SODIUM,PORCINE 5,000 UNIT/ML 1 ML VIAL SQ SCH (07:37)
[2019-11-11] MEDS: FLUTICASONE 44 MCG INHALER INHALATION SCH (08:31)
[2019-11-11] MEDS: ALBUTEROL NEBULIZED 2.5 MG/3 ML INHALATION SCH (08:31)
[2019-11-11 08:39] LABS: African American GFR (CKD) >90 (>60 ml/min/1.73 sqM); Non-African American GFR(CKD) >90 (>60 ml/min/1.73 sqM)
[2019-11-11] MEDS: NICOTINE 21MG/24HR PATCH TRANSDERM SCH (09:09)
--- NOTE | 2019-11-11 10:51 | P.PN ---
<Angie Muñoz Kvng - Last Filed: 11/11/19 10:50> Subjective Progress Note Date: 11/11/19 CHIEF COMPLAINT: drainage from surgical site HISTORY OF PRESENT ILLNESS: patient is status post incision and drainage of abdominal wall fluid collection removal subcufascial mesh and fascial closure. Patient examined at the bedside. She reports her pain is tolerable. Denies nausea or vomiting. Wound vac remains intact. She has been ambulating. She is awaiting discharge. PHYSICAL EXAM: VITAL SIGNS: Reviewed. GENERAL: Well-developed in no acute distress. HEENT: No sclera icterus. Extraocular movements grossly intact. Moist buccal mucosa. Head is atraumatic, normocephalic. ABDOMEN: Soft. Nondistended. wound VAC noted. NEUROLOGIC: Alert and oriented. Cranial nerves II through XII grossly intact. ASSESSMENT: 1. Abdominal wall abscess 2. History of incarcerated incisional hernia with mesh on 05/22/2019 3. Previous hernia repair with postoperative infection, + MRSA PLAN: Patient remains stable for discharge. She is currently pending insurance authorization to ECF Continue wound vac and antibiotics per ID. Nurse practitioner note has been reviewed by physician. Signing provider agrees with the documented findings, assessment, and plan of care. Objective - Vital Signs Vital signs: Vital Signs Temp 98.1 F 11/11/19 07:00 Pulse 80 11/11/19 08:43 Resp 18 11/11/19 07:30 BP 107/50 11/11/19 07:00 Pulse Ox 96 11/11/19 07:00 Intake & Output 11/10/19 11/11/19 11/11/19 18:59 06:59 18:59 Intake Total 200 Balance 200 Intake: Intake, IV Titration 100 Amount Sodium Chloride 0.9% 1, 100 000 ml @ 100 mls/hr IV . Q10H [facility] Rx#:[id number] Oral 100 Other: Voiding Method Toilet Toilet - Labs CBC & Chem 7: 11/08/19 06:42 11/11/19 07:40 Labs: Abnormal Lab Results - Last 24 Hours (Table) 11/10/19 11/10/19 11/10/19 Range/Units 11:43 16:40 20:21 POC Glucose (mg/dL) 138 H 148 H 159 H (75-99) mg/dL 11/10/19 11/11/19 Range/Units 21:21 06:51 POC Glucose (mg/dL) 152 H 114 H (75-99) mg/dL Microbiology - Last 24 Hours (Table) 11/04/19 20:00 Blood Culture - Final Blood No Growth after 144 hours 11/05/19 09:21 Blood Culture - Preliminary Blood No Growth after 120 hours <Aristeo Bentley - Last Filed: 11/11/19 18:59> Subjective As well. Patient discharge prior to my rounding. Follow-up outpatient. Objective - Vital Signs Vital signs: Vital Signs Temp 98.0 F 11/11/19 15:00 Pulse 84 11/11/19 15:00 Resp 16 11/11/19 15:00 BP 121/68 11/11/19 15:00 Pulse Ox 92 L 11/11/19 15:00 Intake & Output 11/10/19 11/11/19 11/11/19 18:59 06:59 18:59 Intake Total 200 Balance 200 Weight 156.943 kg Intake: Intake, IV Titration 100 Amount Sodium Chloride 0.9% 1, 100 000 ml @ 100 mls/hr IV . Q10H [facility] Rx#:[id number] Oral 100 Other: Voiding Method Toilet Toilet - Labs CBC & Chem 7: 11/08/19 06:42 11/11/19 07:40 Labs: Abnormal Lab Results - Last 24 Hours (Table) 11/10/19 11/10/19 11/11/19 Range/Units 20:21 21:21 06:51 POC Glucose (mg/dL) 159 H 152 H 114 H (75-99) mg/dL 11/11/19 Range/Units 11:37 POC Glucose (mg/dL) 149 H (75-99) mg/dL Microbiology - Last 24 Hours (Table) 11/05/19 09:21 Blood Culture - Final Blood No Growth after 144 hours 11/04/19 20:00 Blood Culture - Final Blood No Growth after 144 hours Assessment and Plan (1) Infected prosthetic mesh of abdominal wall Status: Acute Code(s): T85.79XA - INFECT/INFLM REACTION DUE TO OTH INT PROSTH DEV/GRFT, INIT SNOMED Code(s): 706745570
[2019-11-11 11:48] LABS: Glucose,Whole Blood 149 mg/dL (75-99)
[2019-11-11 13:03] VITALS: BMI 63.3
[2019-11-11] MEDS: ACETAMINOPHEN TAB 325 MG TAB PO PRN (13:14)
[2019-11-11 15:25] VITALS: BP 121/68; PULSE 84; RESP 16; TEMP 98
[2019-11-12] MEDS ORDERED: VANCOMYCIN TROUGH DUE 1 EACH MISC MISCELLANE ONE (04:00)
== END 2019-11-11 18:13 | DRG 908 ==
LOC: EC 18:13 → 4SSUR 22:16
PROVIDERS: ADMIT Surgery; ATTEND Surgery
PROC: 0WPF0JZ Removal of Synthetic Substitute from Abdominal Wall, Open Approach (ICD-10-PCS; principal; 2019-11-05 10:50)
PROC: 02HV33Z Insertion of Infusion Device into Superior Vena Cava, Percutaneous Approach (ICD-10-PCS; 2019-11-09)
DX: T85.79XA Infection and inflammatory reaction due to other internal prosthetic devices, implants and grafts, initial encounter (principal); L02.211 Cutaneous abscess of abdominal wall; Z68.44 Body mass index [BMI] 60.0-69.9, adult; L03.316 Cellulitis of umbilicus; Z16.24 Resistance to multiple antibiotics; T81.31XA Disruption of external operation (surgical) wound, not elsewhere classified, initial encounter; Y83.2 Surgical operation with anastomosis, bypass or graft as the cause of abnormal reaction of the patient, or of later complication, without mention of misadventure at the time of the procedure; B95.62 Methicillin resistant Staphylococcus aureus infection as the cause of diseases classified elsewhere; E11.65 Type 2 diabetes mellitus with hyperglycemia; E66.01 Morbid (severe) obesity due to excess calories; F17.200 Nicotine dependence, unspecified, uncomplicated; F31.9 Bipolar disorder, unspecified; F43.10 Post-traumatic stress disorder, unspecified; G40.909 Epilepsy, unspecified, not intractable, without status epilepticus; I10 Essential (primary) hypertension; J44.9 Chronic obstructive pulmonary disease, unspecified; K59.00 Constipation, unspecified; M79.7 Fibromyalgia; Z79.84 Long term (current) use of oral hypoglycemic drugs; Z79.891 Long term (current) use of opiate analgesic; Z79.899 Other long term (current) drug therapy; Z80.0 Family history of malignant neoplasm of digestive organs; Z80.7 Family history of other malignant neoplasms of lymphoid, hematopoietic and related tissues; Z86.14 Personal history of Methicillin resistant Staphylococcus aureus infection; Z90.49 Acquired absence of other specified parts of digestive tract; Z88.0 Allergy status to penicillin; Z91.030 Bee allergy status; Z91.041 Radiographic dye allergy status
CPT/HCPCS: 36415; 36573; 74177; 80048; 80053; 80164; 80202; 81003; 81025; 82565; 83036; 83605; 85025; 87040; 87070; 87075; 87077; 87186; 87205; 94640; 94660; 94760; 96361; 96374; 96375; 99284

== ENCOUNTER 2022-08-07 16:18 | Emergency (ER) | payer OTHER ==
--- NOTE | 2022-08-07 23:16 | ED ---
General Adult HPI - General Chief complaint: Psychiatric Symptoms Stated complaint: Mental health eval Time Seen by Provider: 08/07/22 23:09 Source: patient, RN notes reviewed, old records reviewed Mode of arrival: ambulatory Limitations: no limitations - History of Present Illness Initial comments: 47-year-old female presenting for mental health evaluation. Patient has had increased depression and suicidal thoughts. No specific plan. She denies suicide attempt. She's had definite history in the past of suicidal ideation and required inpatient psychiatric evaluation and treatment. No physical complaints. - Related Data Home Medications Medication Instructions Recorded Confirmed Beclomethasone Dipropionate [Qvar 1 puff INHALATION RT-DAILY 05/18/19 11/04/19 40 mcg Redihaler] Oxybutynin Chloride 5 mg PO BID 05/18/19 11/04/19 hydroCHLOROthiazide [Hydrodiuril] 25 mg PO DAILY 05/18/19 11/04/19 Divalproex Sodium [Divalproex 500 mg PO BID 11/04/19 11/04/19 Sodium ER] Flunisolide [Aerospan] 1 puff INHALATION RT-HS 11/04/19 11/04/19 Nicotine 21Mg/24Hr Patch [Habitrol] 1 patch TRANSDERM DAILY 11/04/19 11/04/19 Venlafaxine HCl ER [Effexor XR] 150 mg PO DAILY 11/04/19 11/04/19 Previous Rx's Medication Instructions Recorded INSULIN LISPRO (HumaLOG) [humaLOG] 0 unit SQ ACHS #1 vial 11/09/19 Ipratropium-Albuterol Nebulize 3 ml INHALATION QID #120 neb 11/09/19 [Duoneb 0.5 mg-3 mg/3 ml Soln] Linagliptin [Tradjenta] 5 mg PO DAILY tablet 11/09/19 metFORMIN HCL [Glucophage] 500 mg PO BID-W/MEALS tab 11/09/19 oxyCODONE HCL/ACETAMINOPHEN 1 tab PO QID #12 tab 11/09/19 [Percocet 10-325 mg] Vancomycin 2,250 mg IVPB Q12H #56 bag 11/10/19 predniSONE 50 mg PO QAM 5 Days #5 tablet 07/17/22 Allergies Allergy/AdvReac Type Severity Reaction Status Date / Time Penicillins Allergy Severe Dyspnea Verified 08/07/22 16:54 bee venom protein (honey bee) Allergy Dyspnea Verified 08/07/22 16:54 Iodinated Contrast Media Allergy mouth numb Verified 08/07/22 16:54 [Iodinated Contrast- Oral for 1 and IV Dye] week/loss of taste Review of Systems ROS Statement: Those systems with pertinent positive or pertinent negative responses have been documented in the HPI. ROS Other: All systems not noted in ROS Statement are negative. Past Medical History Past Medical History: Asthma, COPD, Fibromyalgia, Osteoarthritis (OA), Seizure Disorder, Sleep Apnea/CPAP/BIPAP Additional Past Medical History / Comment(s): last seizure 6 months ago, migraines, varicose veins, no cpap used, urinary leakage/urgency History of Any Multi-Drug Resistant Organisms: MRSA Date of last positivie culture/infection: 11/05/19 MDRO Source:: Abdomen Past Surgical History: Cholecystectomy, Hernia Repair Additional Past Surgical History / Comment(s): surgery on archie little fingers to straigten them, I&D of infected abdominal wall fluid collection with infected subfascial mesh and mesh removal. Past Anesthesia/Blood Transfusion Reactions: Motion Sickness, Postoperative Nausea & Vomiting (PONV) Past Psychological History: Anxiety, Bipolar, Depression, PTSD Smoking Status: Current every day smoker Past Alcohol Use History: Occasional Past Drug Use History: Marijuana - Past Family History Daughter(s) Family Medical History: Cancer Additional Family Medical History / Comment(s): 4 years ago from non-hogkins lymphoma Mother Family Medical History: Cancer Additional Family Medical History / Comment(s): liver cancer General Exam Limitations: no limitations General appearance: alert, in no apparent distress Head exam: Present: atraumatic, normocephalic Eye exam: Present: normal appearance, PERRL ENT exam: Present: normal exam Neck exam: Present: normal inspection. Absent: tenderness, meningismus Respiratory exam: Present: normal lung sounds bilaterally. Absent: respiratory distress, wheezes Cardiovascular Exam: Present: regular rate, normal rhythm GI/Abdominal exam: Present: soft. Absent: distended, tenderness, guarding Extremities exam: Present: normal inspection, normal capillary refill Neurological exam: Present: alert, oriented X3, CN II-XII intact. Absent: motor sensory deficit Psychiatric exam: Present: depressed, flat affect, suicidal ideation Skin exam: Present: warm, dry, intact. Absent: cyanosis, diaphoretic Course Vital Signs 08/07/22 16:52 Temperature 98 F Pulse Rate 81 Respiratory 20 Rate Blood Pressure 134/80 O2 Sat by Pulse 97 Oximetry - Reevaluation(s) Reevaluation #1: 08/07/22 23:15 Clear for EPS. Medical Decision Making - Medical Decision Making Patient had been medically cleared and evaluated by EPS and felt to require inpatient psychiatric evaluation and treatment. She will be admitted to this institution. Disposition Clinical Impression: Suicidal ideation, Depression Disposition: ADMITTED IP TO THIS HOSP Condition: Stable Is patient prescribed a controlled substance at d/c from ED?: No Referrals: Carlos Willson Jr, DO [Primary Care Provider] - 1-2 days Time of Disposition: 01:30
[2022-08-08 02:00] LABS: Basophils # (A) 0.1 k/uL (0-0.2); Basophils % (A) 1 %; Eosinophils # (A) 0.4 k/uL (0-0.7); Eosinophils % (A) 3 %; HCT 49.1 % (34.0-46.0); HGB 16.1 gm/dL (11.4-16.0); Lymphocytes % (A) 30 %; MCHC 32.7 g/dL (31.0-37.0); MCV 94.7 fL (80.0-100.0); Mean Platelet Volume 8.3; Monocytes # (A) 0.6 k/uL (0-1.0); Monocytes % (A) 4 %; Neutrophils % (A) 61 %; Platelet Count 337 k/uL (150-450); RBC 5.19 m/uL (3.80-5.40); RDW 13.6 % (11.5-15.5); WBC 13.1 k/uL (3.8-10.6)
[2022-08-08 02:10] LABS: ALT 15 U/L (4-34); AST 15 U/L (14-36); African American GFR (CKD) >90 (>60 ml/min/1.73 sqM); Alkaline Phosphatase 68 U/L (38-126); Anion Gap 13 mmol/L; Blood Urea Nitrogen 13 mg/dL (7-17); Calcium 9.4 mg/dL (8.4-10.2); Carbon Dioxide 24 mmol/L (22-30); Chloride 100 mmol/L (98-107); Glucose 111 mg/dL (74-99); Non-African American GFR(CKD) 90 (>60 ml/min/1.73 sqM); Potassium 4.1 mmol/L (3.5-5.1); Sodium 137 mmol/L (137-145); Total Bilirubin 0.2 mg/dL (0.2-1.3); Total Protein 7.2 g/dL (6.3-8.2)
[2022-08-08] MEDS ORDERED: ACETAMINOPHEN TAB 500 MG TAB PO STA (06:35)
[2022-08-08] MEDS ORDERED: traMADol 50 MG TAB PO PRN (12:39)
[2022-08-08] MEDS ORDERED: IPRATROPIUM-ALBUTEROL 3 ML NEB INHALATION PRN (12:44)
[2022-08-08 12:57] LABS: Glucose,Whole Blood 143 mg/dL (70-110)
[2022-08-08] MEDS ORDERED: ALBUTEROL NEBULIZED 2.5 MG/3 ML INHALATION PRN (13:05)
[2022-08-08] MEDS: Acetaminophen-Codeine 300-30mg TAB PO PRN ×2 (13:51→20:41)
[2022-08-08 16:33] LABS: Glucose,Whole Blood 123 mg/dL (70-110)
[2022-08-08] MEDS: INSULIN ASPART (NovoLOG) 100 UNIT/ML VIAL SQ SCH ×2 (17:13→20:43)
[2022-08-08] MEDS: metFORMIN 500 MG TAB PO SCH (17:16)
[2022-08-08] MEDS: GABAPENTIN 400 MG CAP PO SCH (17:16)
[2022-08-08 20:36] LABS: Glucose,Whole Blood 116 mg/dL (70-110)
[2022-08-08] MEDS: DIVALPROEX ER 500 MG TAB.ER.24H PO SCH (20:41)
[2022-08-08] MEDS: OXYBUTYNIN CHLORIDE 5 MG TAB PO SCH (20:42)
[2022-08-09] MEDS: GABAPENTIN 400 MG CAP PO SCH ×4 (00:44→23:08)
[2022-08-09 08:17] LABS: Glucose,Whole Blood 116 mg/dL (70-110)
[2022-08-09] MEDS: INSULIN ASPART (NovoLOG) 100 UNIT/ML VIAL SQ SCH ×4 (08:18→21:42)
[2022-08-09] MEDS: DIVALPROEX ER 500 MG TAB.ER.24H PO SCH ×2 (08:43→20:44)
[2022-08-09] MEDS: metFORMIN 500 MG TAB PO SCH ×2 (08:43→18:52)
[2022-08-09] MEDS: DULoxetine HCL 30 MG CAPSULE.DR PO SCH (08:43)
[2022-08-09] MEDS: hydroCHLOROthiazide 25 MG TAB PO SCH (08:43)
[2022-08-09] MEDS: OXYBUTYNIN CHLORIDE 5 MG TAB PO SCH ×2 (08:44→20:44)
[2022-08-09] MEDS: Acetaminophen-Codeine 300-30mg TAB PO PRN (08:48)
[2022-08-09 12:42] LABS: Glucose,Whole Blood 145 mg/dL (70-110)
[2022-08-09 18:35] LABS: Amphetamine Screen,Urine Not Detected (NotDetected); Barbiturate Screen,Urine Not Detected (NotDetected); Benzodiazepines Screen,Urine Not Detected (NotDetected); Cocaine Screen,Urine Not Detected (NotDetected); Methadone Screen, Urine Not Detected (NotDetected); Opiate Screen,Urine Detected (NotDetected); Oxycodone Screen, Urine Not Detected (NotDetected); Phencyclidine Screen,Urine Not Detected (NotDetected); Tricyclic Antidepressant,Urine Not Detected (NotDetected); Urn Cannabinoid Scrn Detected (NotDetected)
[2022-08-09 18:44] LABS: Glucose,Whole Blood 152 mg/dL (70-110)
[2022-08-09 18:57] VITALS: TEMP 98.3
[2022-08-10 03:38] LABS: Appearance,Urine Clear (Clear); Bilirubin,Urine Negative (Negative); Blood,Urine Negative (Negative); Color,Urine Light Yellow; Glucose,Urine (UA) Negative (Negative); Ketones,Urine Negative (Negative); Leukocyte Esterase,Urine Negative (Negative); Nitrite,Urine Negative (Negative); Protein,Urine Negative (Negative); Specific Gravity,Urine 1.009 (1.001-1.035); Urobilinogen,Urine <2.0 mg/dL (<2.0)
[2022-08-10 07:40] LABS: Glucose,Whole Blood 140 mg/dL (70-110)
[2022-08-10] MEDS: INSULIN ASPART (NovoLOG) 100 UNIT/ML VIAL SQ SCH (08:13)
[2022-08-10] MEDS: DIVALPROEX ER 500 MG TAB.ER.24H PO SCH (08:44)
[2022-08-10] MEDS: hydroCHLOROthiazide 25 MG TAB PO SCH (08:45)
[2022-08-10] MEDS: OXYBUTYNIN CHLORIDE 5 MG TAB PO SCH (08:45)
[2022-08-10] MEDS: metFORMIN 500 MG TAB PO SCH (08:45)
[2022-08-10] MEDS: DULoxetine HCL 30 MG CAPSULE.DR PO SCH (08:45)
[2022-08-10] MEDS: GABAPENTIN 400 MG CAP PO SCH (08:45)
[2022-08-10] MEDS ORDERED: traMADol 50 MG TAB PO PRN (08:49)
[2022-08-10] MEDS ORDERED: Acetaminophen-Codeine 300-30mg TAB PO PRN (08:49)
[2022-08-10 08:50] VITALS: BP 132/76; PULSE 70; RESP 18
[2022-08-10] MEDS ORDERED: GABAPENTIN 400 MG CAP PO SCH (09:00)
[2022-08-13] MEDS ORDERED: ERGOCALCIFEROL 1,250 MCG (50,000 IU) CAPSULE PO SCH (09:00)
== END 2022-08-10 08:51 | disposition other institution (70) ==
LOC: EC 16:18
DX: R45.851 Suicidal ideations (principal); F32.A Depression, unspecified; J44.9 Chronic obstructive pulmonary disease, unspecified; M19.90 Unspecified osteoarthritis, unspecified site; Z86.69 Personal history of other diseases of the nervous system and sense organs; F17.200 Nicotine dependence, unspecified, uncomplicated; Z79.52 Long term (current) use of systemic steroids; Z88.0 Allergy status to penicillin; Z91.030 Bee allergy status; Z91.041 Radiographic dye allergy status
CPT/HCPCS: 36415; 80053; 80306; 81003; 81025; 82075; 85025; 87635; 93005; 99285